=== PATIENT | male | born 1975 | race Two or more races ===

== ENCOUNTER 2022-07-16 18:28 | Emergency (ER) | payer OTHER ==
[~2022-07-16] VITALS: Ht 180.3 cm; Wt 174.6 kg
[2022-07-16 20:30] VITALS: BP 127/66
--- NOTE | 2022-07-16 20:56 | NUR ---
Patient does not wish to proceed with medical care recommended by Dr. Merritt. Patient given information related to possible complications, up to and including , which could occur as a result of leaving the hospital at this time. Patient verbalizes understanding of risks involved due to leaving against medical advice. Patient has signed AMA form.
== END 2022-07-16 21:19 | disposition home or self-care (01) ==
LOC: ER 18:32
DX: R42 Dizziness and giddiness (principal); R06.02 Shortness of breath; R05.9 Cough, unspecified; I10 Essential (primary) hypertension; E11.9 Type 2 diabetes mellitus without complications; Z53.29 Procedure and treatment not carried out because of patient's decision for other reasons

== ENCOUNTER 2022-09-14 16:40 | Emergency (ER) | payer OTHER ==
[~2022-09-14] VITALS: Ht 182.9 cm; Wt 181.4 kg
[2022-09-14 16:58] VITALS: BP 161/105
--- NOTE | 2022-09-14 17:03 | NUR ---
URINE SAMPLE OBTAINED AND PLACED IN DROP OFF BOX
[2022-09-14] MEDS ORDERED: INSULIN REGULAR, HUMAN 100 UNIT/ML 10 ML VIAL ONE (17:29)
[2022-09-14] MEDS ORDERED: IBUPROFEN 600 MG TABLET ONE (17:29)
[2022-09-14] MEDS ORDERED: IBUPROFEN 600 MG TABLET PO ONE (17:30)
[2022-09-14] MEDS ORDERED: INSULIN REGULAR, HUMAN 100 UNIT/ML 10 ML VIAL SQ ONE (17:30)
--- NOTE | 2022-09-14 18:01 | NUR ---
Patient discharged to home in stable condition. Written and verbal after care instructions given. Patient verbalizes understanding of instruction.
== END 2022-09-14 18:02 | disposition home or self-care (01) ==
LOC: ER 16:44
DX: I83.892 Varicose veins of left lower extremity with other complications (principal); I10 Essential (primary) hypertension; E11.9 Type 2 diabetes mellitus without complications; Z88.8 Allergy status to other drugs, medicaments and biological substances
CPT/HCPCS: 99283; 96372; 82962; J1815; A6253

== ENCOUNTER 2023-09-23 21:38 | Inpatient (IN) | payer OTHER ==
[~2023-09-23] VITALS: Ht 195.6 cm; Wt 225.1 kg
[~2023-09-23 21:38] MED LIST: ACET-2605 PO; AMIO100T4 PO; BLOO-1672 MC; BUME2TAB7 PO; CEFT2VIA14 IV; DICL100G26 TP; DOXY100T2 PO; GABA600T12 PO; INSU100V7 SQ; ISOPROPYL ALCOHOL TP; METF-440 PO; METO-358 PO; NALO4SPR NS; RIVA10TA PO
[2023-09-23] MEDS ORDERED: MORPHINE SULFATE INJ 2 MG/ML DISP.SYRIN IV ONE (22:30)
[2023-09-23] MEDS ORDERED: CLINDAMYCIN 600 MG in IV D5W 100 ML IV ONE (22:30)
[2023-09-23] MEDS ORDERED: CLINDAMYCIN 900 MG/6 ML VIAL ONE (23:09)
[2023-09-23 23:12] LABS: BASOPHILS # (AUTO) 0.1 K/uL (0.0-0.2); BASOPHILS % (AUTO) 0.7 % (0.0-2.0); EOSINOPHILS # (AUTO) 0.7 K/uL (0.0-0.7); EOSINOPHILS % (AUTO) 6.2 % (0.0-6.0); HEMATOCRIT 43 % (39-51); HEMOGLOBIN 13.8 g/dL (13.5-17.5); LYMPHOCYTES # (AUTO) 0.3 K/uL (0.8-4.8); LYMPHOCYTES % (AUTO) 2.8 % (20.0-44.0); MEAN CORPUSCULAR HEMOGLOBIN 26 PG (26.0-33.0); MEAN CORPUSCULAR HGB CONC 32 g/dl (31.0-36.0); MEAN CORPUSCULAR VOLUME 81 fL (80-96); MONOCYTES # (AUTO) 0.9 K/uL (0.1-1.30); NEUTROPHILS # (AUTO) 9.8 K/uL (1.8-8.9); NEUTROPHILS % (AUTO) 82.3 % (43.0-81.0); PLATELET COUNT (AUTO) 463 K/uL (150-450); RED BLOOD CELL COUNT(AUTO) 5.32 MIL/uL (4.5-6.0); RED CELL DISTRIBUTION WIDTH 19.6 % (11.5-15.0); WHITE BLOOD COUNT (AUTO) 11.8 K/uL (4.3-11.0)
[2023-09-23 23:25] LABS: INR 1.06 (0.91-1.10); PARTIAL THROMBOPLASTIN TIME 35.6 SEC (24.3-34.3); PROTHROMBIN TIME 11.2 SECS (9.2-11.1)
[2023-09-23 23:36] LABS: CALCIUM, SERUM 9.8 mg/dL (8.5-10.1); POTASSIUM 5.6 mmol/L (3.5-5.1)
[2023-09-23] MEDS ORDERED: ACETAMINOPHEN ES 500 MG TABLET ONE (23:38)
[2023-09-23 23:42] LABS: LACTIC ACID 1.6 mmol/L (0.4-2.0)
[2023-09-23 23:51] LABS: ALBUMIN 2.6 g/dL (3.4-5.0); BILIRUBIN,DIRECT 0.2 mg/dL (0.0-0.2); BILIRUBIN,TOTAL 0.6 mg/dL (0.2-1.0)
[2023-09-24] MEDS ORDERED: ACETAMINOPHEN ES 500 MG TABLET PO ONE
[2023-09-24] MEDS ORDERED: IV NS 0.9% 500 ML BAG IV ONE
[2023-09-24] MEDS ORDERED: ONDANSETRON HCL/PF 4 MG/2 ML VIAL IVP PRN (01:00)
[2023-09-24] MEDS ORDERED: DEXTROSE 50%-WATER 50 ML DISP.SYRIN IV PRN (01:00)
[2023-09-24] MEDS ORDERED: ACETAMINOPHEN 325 MG TABLET PO PRN (01:00)
[2023-09-24] MEDS ORDERED: CEFEPIME 1 GM VIAL ONE (01:54)
[2023-09-24] MEDS ORDERED: CEFEPIME 2 GM in IV D5W 100 ML IV ONE (02:00)
[2023-09-24] MEDS ORDERED: MORPHINE SULFATE INJ 2 MG/ML DISP.SYRIN ONE ×2 (03:01→10:32)
[2023-09-24] MEDS: MORPHINE SULFATE INJ 2 MG/ML DISP.SYRIN IV PRN ×2 (03:17→10:33)
[2023-09-24] MEDS ORDERED: ACETAMINOPHEN 325 MG TABLET ONE (05:50)
[2023-09-24] MEDS ORDERED: Z GUARD REMEDY 4 OZ OINT TP PRN (07:30)
[2023-09-24] MEDS: BLOOD SUGAR DIAGNOSTIC 1 EACH STRIP VI SCH ×4 (07:58→21:32)
[2023-09-24] MEDS: GABAPENTIN 400 MG CAPSULE PO SCH ×3 (09:00→18:00)
[2023-09-24] MEDS ORDERED: LINEZOLID RTU BAG 600 MG in PREMIX 1 EA IV SCH (09:00)
[2023-09-24] MEDS: Z GUARD REMEDY 4 OZ OINT TP SCH (09:00)
[2023-09-24] MEDS: CLOTRIMAZOLE 1% 15 GM TUBE TP SCH ×2 (09:00→17:00)
[2023-09-24] MEDS ORDERED: RIVAROXABAN 10 MG TABLET PO SCH (09:00)
[2023-09-24] MEDS: BUMETANIDE (1 MG) 1 MG TABLET PO SCH (09:30)
[2023-09-24] MEDS: METOPROLOL SUCCINATE 50 MG TAB.SR.24H PO SCH (10:00)
[2023-09-24] MEDS: LINEZOLID 600 MG TABLET PO SCH ×2 (10:00→21:23)
[2023-09-24] MEDS: AMIODARONE HCL 200 MG TABLET PO SCH (10:24)
[2023-09-24] MEDS ORDERED: AMIODARONE HCL 200 MG TABLET ONE (10:24)
[2023-09-24] MEDS: CEFEPIME 2 GM in IV D5W 100 ML IV SCH ×2 (12:28→23:57)
[2023-09-24] MEDS: INSULIN REGULAR, HUMAN 100 UNIT/ML 3 ML VIAL SQ PRN ×2 (13:22→18:24)
[2023-09-24 14:37] LABS: BASOPHILS # (AUTO) 0.1 K/uL (0.0-0.2); BASOPHILS % (AUTO) 1.1 % (0.0-2.0); EOSINOPHILS # (AUTO) 0.1 K/uL (0.0-0.7); EOSINOPHILS % (AUTO) 1.1 % (0.0-6.0); HEMATOCRIT 41 % (39-51); HEMOGLOBIN 13.3 g/dL (13.5-17.5); LYMPHOCYTES # (AUTO) 0.4 K/uL (0.8-4.8); LYMPHOCYTES % (AUTO) 2.9 % (20.0-44.0); MEAN CORPUSCULAR HEMOGLOBIN 26 PG (26.0-33.0); MEAN CORPUSCULAR HGB CONC 32 g/dl (31.0-36.0); MEAN CORPUSCULAR VOLUME 81 fL (80-96); MONOCYTES % (AUTO) 8.3 % (2.0-12.0); NEUTROPHILS # (AUTO) 10.9 K/uL (1.8-8.9); NEUTROPHILS % (AUTO) 86.6 % (43.0-81.0); PLATELET COUNT (AUTO) 466 K/uL (150-450); RED BLOOD CELL COUNT(AUTO) 5.08 MIL/uL (4.5-6.0); RED CELL DISTRIBUTION WIDTH 19.7 % (11.5-15.0); WHITE BLOOD COUNT (AUTO) 12.5 K/uL (4.3-11.0)
[2023-09-24 14:50] LABS: CALCIUM, SERUM 9.2 mg/dL (8.5-10.1); CREATININE 1.5 mg/dL (0.6-1.3); MAGNESIUM 1.9 mg/dL (1.8-2.4); PHOSPHORUS 3.6 mg/dL (2.5-4.9); POTASSIUM 5.5 mmol/L (3.5-5.1)
[2023-09-24] MEDS: RIVAROXABAN 10 MG TABLET PO SCH (18:00)
[2023-09-24] MEDS: *INSULIN REGULAR(HUMULIN R)HUM 100 UNIT/ML VIAL SQ PRN (21:38)
[2023-09-24 23:37] VITALS: BP 135/80; TEMP 98; O2SAT 97
[2023-09-25] VITALS: BP 135/80; TEMP 98; O2SAT 100
[2023-09-25] MEDS: MORPHINE SULFATE INJ 2 MG/ML DISP.SYRIN IV PRN ×4 (01:14→22:59)
[2023-09-25 04:00] VITALS: BP 103/83; TEMP 98.6; O2SAT 99
[2023-09-25 06:20] LABS: BASOPHILS % (AUTO) 0.4 % (0.0-2.0); EOSINOPHILS # (AUTO) 0.3 K/uL (0.0-0.7); EOSINOPHILS % (AUTO) 2.8 % (0.0-6.0); HEMATOCRIT 40 % (39-51); HEMOGLOBIN 12.6 g/dL (13.5-17.5); LYMPHOCYTES # (AUTO) 0.4 K/uL (0.8-4.8); LYMPHOCYTES % (AUTO) 3.6 % (20.0-44.0); MEAN CORPUSCULAR HEMOGLOBIN 26 PG (26.0-33.0); MEAN CORPUSCULAR HGB CONC 32 g/dl (31.0-36.0); MEAN CORPUSCULAR VOLUME 81 fL (80-96); MONOCYTES # (AUTO) 1.1 K/uL (0.1-1.30); MONOCYTES % (AUTO) 9.8 % (2.0-12.0); NEUTROPHILS # (AUTO) 9.7 K/uL (1.8-8.9); NEUTROPHILS % (AUTO) 83.4 % (43.0-81.0); PLATELET COUNT (AUTO) 453 K/uL (150-450); RED BLOOD CELL COUNT(AUTO) 4.88 MIL/uL (4.5-6.0); RED CELL DISTRIBUTION WIDTH 19.6 % (11.5-15.0); WHITE BLOOD COUNT (AUTO) 11.6 K/uL (4.3-11.0)
[2023-09-25 06:47] LABS: CALCIUM, SERUM 9.4 mg/dL (8.5-10.1); CREATININE 1.3 mg/dL (0.6-1.3); PHOSPHORUS 4.1 mg/dL (2.5-4.9); POTASSIUM 5.1 mmol/L (3.5-5.1); TOTAL PROTEIN, SERUM 8.6 g/dL (6.4-8.2)
[2023-09-25] MEDS: BLOOD SUGAR DIAGNOSTIC 1 EACH STRIP VI SCH ×4 (07:30→22:11)
[2023-09-25] MEDS: INSULIN REGULAR, HUMAN 100 UNIT/ML 3 ML VIAL SQ PRN ×4 (07:49→22:53)
[2023-09-25 08:00] VITALS: BP 122/83; TEMP 98.3; O2SAT 96
[2023-09-25] MEDS: BUMETANIDE (1 MG) 1 MG TABLET PO SCH (09:56)
[2023-09-25] MEDS: GABAPENTIN 400 MG CAPSULE PO SCH ×3 (09:56→16:22)
[2023-09-25] MEDS: METOPROLOL SUCCINATE 50 MG TAB.SR.24H PO SCH (09:57)
[2023-09-25] MEDS: AMIODARONE HCL 200 MG TABLET PO SCH (09:57)
[2023-09-25] MEDS: LINEZOLID 600 MG TABLET PO SCH ×2 (10:00→22:50)
[2023-09-25] MEDS: DAKINS HALF STRENGTH (0.25%) 480 ML BOTTLE TOP SCH (10:00)
[2023-09-25] MEDS: CLOTRIMAZOLE 1% 15 GM TUBE TP SCH ×4 (10:01→16:23)
[2023-09-25] MEDS: Z GUARD REMEDY 4 OZ OINT TP SCH (10:01)
[2023-09-25] MEDS: CEFEPIME 2 GM in IV D5W 100 ML IV SCH (11:39)
[2023-09-25 12:00] VITALS: BP 125/95; TEMP 98.6; O2SAT 98
[2023-09-25 16:00] VITALS: BP 137/79; TEMP 98; O2SAT 97
[2023-09-25] MEDS: RIVAROXABAN 10 MG TABLET PO SCH (16:19)
[2023-09-25 20:00] VITALS: BP 118/83; TEMP 98.8; O2SAT 96
[2023-09-25] MEDS: FLUTICASONE PROPIONATE 16 GM BOTTLE NS SCH (22:50)
[2023-09-25] MEDS: INSULIN GLARGINE, 100 UNIT/ML CARTRIDGE SQ SCH (22:52)
[2023-09-26] VITALS: BP 128/85; TEMP 98.4; O2SAT 95
[2023-09-26] MEDS: CEFEPIME 2 GM in IV D5W 100 ML IV SCH ×3 (00:10→23:51)
[2023-09-26 04:00] VITALS: BP 122/84; TEMP 98.2; O2SAT 96
[2023-09-26 06:07] LABS: PTH, INTACT 20 pg/mL (15-65)
[2023-09-26 08:00] VITALS: BP 123/81; TEMP 98.2; O2SAT 96
[2023-09-26] MEDS: BLOOD SUGAR DIAGNOSTIC 1 EACH STRIP VI SCH ×4 (08:07→21:37)
[2023-09-26] MEDS: INSULIN REGULAR, HUMAN 100 UNIT/ML 3 ML VIAL SQ PRN ×3 (08:09→17:20)
[2023-09-26] MEDS: FLUTICASONE PROPIONATE 16 GM BOTTLE NS SCH ×2 (08:47→16:43)
[2023-09-26] MEDS: CLOTRIMAZOLE 1% 15 GM TUBE TP SCH ×4 (08:47→16:47)
[2023-09-26] MEDS: GABAPENTIN 400 MG CAPSULE PO SCH ×3 (08:48→16:43)
[2023-09-26] MEDS: AMIODARONE HCL 200 MG TABLET PO SCH (08:48)
[2023-09-26] MEDS: BUMETANIDE (1 MG) 1 MG TABLET PO SCH (08:48)
[2023-09-26] MEDS: Z GUARD REMEDY 4 OZ OINT TP SCH (08:49)
[2023-09-26] MEDS: DAKINS HALF STRENGTH (0.25%) 480 ML BOTTLE TOP SCH (08:49)
[2023-09-26] MEDS: METOPROLOL SUCCINATE 50 MG TAB.SR.24H PO SCH (08:49)
[2023-09-26] MEDS: LINEZOLID 600 MG TABLET PO SCH ×2 (08:49→21:13)
[2023-09-26 10:08] LABS: *SPE A/G RATIO 0.4 (0.7-1.7); *SPE ALBUMIN 2.3 g/dL (2.9-4.4); *SPE ALPHA-1-GLOBULIN 0.5 g/dL (0.0-0.4); *SPE ALPHA-2-GLOBULIN 1.1 g/dL (0.4-1.0); *SPE BETA GLOBULIN 1.2 g/dL (0.7-1.3); *SPE GLOBULIN, TOTAL 5.3 g/dL (2.2-3.9); *SPE M-SPIKE Not Observed g/dL (Not Observed); *SPE PROTEIN TOTAL 7.6 g/dL (6.0-8.5); *SPEGAMMA GLOBULIN 2.4 g/dL (0.4-1.8)
[2023-09-26 11:23] LABS: CALCIUM, SERUM 9.1 mg/dL (8.5-10.1); CREATININE 1.4 mg/dL (0.6-1.3); POTASSIUM 4.1 mmol/L (3.5-5.1)
[2023-09-26 12:00] VITALS: BP 101/62; TEMP 98; O2SAT 96
[2023-09-26] MEDS ORDERED: CEPH500C2 PO (12:13)
[2023-09-26] MEDS ORDERED: ACID1TAB4 PO (12:14)
[2023-09-26 16:00] VITALS: BP 111/62; TEMP 98; O2SAT 96
[2023-09-26] MEDS: RIVAROXABAN 10 MG TABLET PO SCH (16:47)
[2023-09-26 20:00] VITALS: BP 107/86; TEMP 98.5; O2SAT 97
[2023-09-26] MEDS: INSULIN GLARGINE, 100 UNIT/ML CARTRIDGE SQ SCH (21:39)
[2023-09-26] MEDS: *INSULIN REGULAR(HUMULIN R)HUM 100 UNIT/ML VIAL SQ PRN (21:41)
[2023-09-27] VITALS: BP 112/79; TEMP 98.3; O2SAT 95
[2023-09-27 04:00] VITALS: BP 142/75; TEMP 98.7; O2SAT 96
[2023-09-27 08:00] VITALS: BP 135/70; TEMP 98.7; O2SAT 95
[2023-09-27] MEDS: CLOTRIMAZOLE 1% 15 GM TUBE TP SCH ×4 (08:31→17:19)
[2023-09-27] MEDS: BLOOD SUGAR DIAGNOSTIC 1 EACH STRIP VI SCH ×4 (08:31→22:00)
[2023-09-27] MEDS: LINEZOLID 600 MG TABLET PO SCH ×2 (08:32→21:25)
[2023-09-27] MEDS: INSULIN REGULAR, HUMAN 100 UNIT/ML 3 ML VIAL SQ PRN ×3 (08:32→17:17)
[2023-09-27] MEDS: GABAPENTIN 400 MG CAPSULE PO SCH ×3 (08:33→17:16)
[2023-09-27] MEDS: AMIODARONE HCL 200 MG TABLET PO SCH (08:33)
[2023-09-27] MEDS: METOPROLOL SUCCINATE 50 MG TAB.SR.24H PO SCH (08:33)
[2023-09-27] MEDS: BUMETANIDE (1 MG) 1 MG TABLET PO SCH (08:34)
[2023-09-27] MEDS: DAKINS HALF STRENGTH (0.25%) 480 ML BOTTLE TOP SCH (08:35)
[2023-09-27] MEDS: FLUTICASONE PROPIONATE 16 GM BOTTLE NS SCH ×2 (08:35→17:19)
[2023-09-27] MEDS: Z GUARD REMEDY 4 OZ OINT TP SCH (08:36)
[2023-09-27 12:00] VITALS: BP 131/82; TEMP 98.5; O2SAT 96
[2023-09-27] MEDS ORDERED: MAG HYDROX/AL HYDROX/SIMETH 30 ML UDC PO PRN (12:00)
[2023-09-27] MEDS: CEFEPIME 2 GM in IV D5W 100 ML IV SCH ×3 (12:00)
[2023-09-27] MEDS: CEPHALEXIN MONOHYDRATE 500 MG CAPSULE PO SCH ×2 (15:04→21:26)
[2023-09-27 15:47] LABS: CALCIUM, SERUM 8.9 mg/dL (8.5-10.1); CREATININE 1.1 mg/dL (0.6-1.3); POTASSIUM 3.7 mmol/L (3.5-5.1)
[2023-09-27 16:00] VITALS: BP 128/89; TEMP 98.1; O2SAT 99
[2023-09-27] MEDS: RIVAROXABAN 10 MG TABLET PO SCH (17:16)
[2023-09-27 20:00] VITALS: BP 116/69; TEMP 98.6; O2SAT 99
[2023-09-28] VITALS: BP 116/69; TEMP 98.6; O2SAT 99
[2023-09-28] MEDS: *INSULIN REGULAR(HUMULIN R)HUM 100 UNIT/ML VIAL SQ PRN (00:06)
[2023-09-28] MEDS: INSULIN GLARGINE, 100 UNIT/ML CARTRIDGE SQ SCH (00:07)
[2023-09-28] MEDS: CEPHALEXIN MONOHYDRATE 500 MG CAPSULE PO SCH ×2 (02:41→09:07)
[2023-09-28 04:00] VITALS: BP 146/96; TEMP 98; O2SAT 96
[2023-09-28] MEDS: BLOOD SUGAR DIAGNOSTIC 1 EACH STRIP VI SCH ×2 (07:30→11:23)
[2023-09-28 08:00] VITALS: BP 137/91; TEMP 98; O2SAT 97
[2023-09-28] MEDS: CLOTRIMAZOLE 1% 15 GM TUBE TP SCH ×2 (09:01→09:02)
[2023-09-28] MEDS: DAKINS HALF STRENGTH (0.25%) 480 ML BOTTLE TOP SCH (09:01)
[2023-09-28] MEDS: Z GUARD REMEDY 4 OZ OINT TP SCH (09:02)
[2023-09-28] MEDS: AMIODARONE HCL 200 MG TABLET PO SCH (09:06)
[2023-09-28] MEDS: METOPROLOL SUCCINATE 50 MG TAB.SR.24H PO SCH (09:06)
[2023-09-28] MEDS: BUMETANIDE (1 MG) 1 MG TABLET PO SCH (09:07)
[2023-09-28] MEDS: FLUTICASONE PROPIONATE 16 GM BOTTLE NS SCH (09:07)
[2023-09-28] MEDS: GABAPENTIN 400 MG CAPSULE PO SCH ×2 (09:07→12:07)
[2023-09-28] MEDS: INSULIN REGULAR, HUMAN 100 UNIT/ML 3 ML VIAL SQ PRN ×2 (09:08→11:25)
[2023-09-28] MEDS: LINEZOLID 600 MG TABLET PO SCH (09:20)
[2023-09-28 12:00] VITALS: BP 117/77; TEMP 97.3; O2SAT 94
== END 2023-09-28 14:22 | disposition home health service (06) | DRG 383 ==
LOC: ER 21:40 → TRANSITION 09-24 01:18 → TELE1 09-24 19:18
PROVIDERS: ADMIT Nurse Practitioner Acute Care; ATTEND Nurse Practitioner Acute Care
DX: L03.115 Cellulitis of right lower limb (principal); N17.0 Acute kidney failure with tubular necrosis; D68.59 Other primary thrombophilia; I48.20 Chronic atrial fibrillation, unspecified; E87.1 Hypo-osmolality and hyponatremia; L97.419 Non-pressure chronic ulcer of right heel and midfoot with unspecified severity; E86.0 Dehydration; E86.1 Hypovolemia; E11.51 Type 2 diabetes mellitus with diabetic peripheral angiopathy without gangrene; I50.9 Heart failure, unspecified; I11.0 Hypertensive heart disease with heart failure; L03.116 Cellulitis of left lower limb; E11.65 Type 2 diabetes mellitus with hyperglycemia; Z79.01 Long term (current) use of anticoagulants; E11.621 Type 2 diabetes mellitus with foot ulcer; Z88.1 Allergy status to other antibiotic agents; Z88.8 Allergy status to other drugs, medicaments and biological substances; Z79.4 Long term (current) use of insulin; Z79.84 Long term (current) use of oral hypoglycemic drugs; Z79.899 Other long term (current) drug therapy; E87.5 Hyperkalemia; E66.01 Morbid (severe) obesity due to excess calories; Z68.43 Body mass index [BMI] 50.0-59.9, adult; Z74.09 Other reduced mobility; I87.8 Other specified disorders of veins; I89.0 Lymphedema, not elsewhere classified; D64.9 Anemia, unspecified; L30.4 Erythema intertrigo; E88.9 Metabolic disorder, unspecified; Z86.19 Personal history of other infectious and parasitic diseases
CPT/HCPCS: 36415; 71045-TC; 73630-TC; 76770-TC; 80048-TC; 80053-TC; 80076-TC; 82550-TC; 82962-TC; 83605-TC; 83735-TC; 83880; 83970; 84100-TC; 84155; 84165; 85025-TC; 85730-TC; 87040-TC; A4216; A4223; A6403; G0378; J0692; J1815; J2020; J2270; J2405; J3490; J7040; J7060

== ENCOUNTER 2023-11-12 16:53 | Inpatient (IN) | payer OTHER ==
[~2023-11-12] VITALS: Ht 195.6 cm; Wt 216.8 kg
[~2023-11-12 16:53] MED LIST changes: +ACID1TAB4 PO; -CEFT2VIA14 IV; +CEPH500C2 PO; -DOXY100T2 PO; -METF-440 PO
[2023-11-12 17:56] LABS: BASOPHILS # (AUTO) 0.1 K/uL (0.0-0.2); BASOPHILS % (AUTO) 0.6 % (0.0-2.0); EOSINOPHILS # (AUTO) 0.2 K/uL (0.0-0.7); EOSINOPHILS % (AUTO) 2.2 % (0.0-6.0); HEMATOCRIT 40 % (39-51); HEMOGLOBIN 12.7 g/dL (13.5-17.5); LYMPHOCYTES # (AUTO) 0.4 K/uL (0.8-4.8); LYMPHOCYTES % (AUTO) 5.3 % (20.0-44.0); MEAN CORPUSCULAR HEMOGLOBIN 28 PG (26.0-33.0); MEAN CORPUSCULAR HGB CONC 32 g/dl (31.0-36.0); MEAN CORPUSCULAR VOLUME 87 fL (80-96); MONOCYTES # (AUTO) 0.8 K/uL (0.1-1.30); MONOCYTES % (AUTO) 10.3 % (2.0-12.0); NEUTROPHILS # (AUTO) 6.6 K/uL (1.8-8.9); NEUTROPHILS % (AUTO) 81.6 % (43.0-81.0); PLATELET COUNT (AUTO) 374 K/uL (150-450); RED BLOOD CELL COUNT(AUTO) 4.54 MIL/uL (4.5-6.0); RED CELL DISTRIBUTION WIDTH 18.5 % (11.5-15.0)
[2023-11-12 18:23] LABS: CALCIUM, SERUM 8.9 mg/dL (8.5-10.1); CARBON DIOXIDE 28 mmol/L (21-32); CHLORIDE 104 mmol/L (98-107); CREATININE 1.3 mg/dL (0.6-1.3); GLUCOSE 137 mg/dL (74-106); POTASSIUM 3.2 mmol/L (3.5-5.1); SODIUM SERUM 140 mmol/L (136-145); UREA NITROGEN, BLOOD 11 mg/dL (7-18)
[2023-11-12 18:30] LABS: LACTIC ACID 1.7 mmol/L (0.4-2.0)
[2023-11-12 18:33] LABS: ALANINE AMINOTRANSFERASE 10 U/L (12-78); ALBUMIN 2.7 g/dL (3.4-5.0); ALKALINE PHOSPHATASE 166 U/L (46-116); ASPARTATE AMINOTRANSFERASE 9 U/L (15-37); BILIRUBIN,DIRECT 0.5 mg/dL (0.0-0.2); BILIRUBIN,TOTAL 2.2 mg/dL (0.2-1.0); NT-PRO BNP 4012 pg/mL (0-125)
[2023-11-12] MEDS ORDERED: hydrALAZINE HCL IV 20 MG VIAL IV PRN (19:00)
[2023-11-12] MEDS ORDERED: DEXTROSE 50%-WATER 50 ML DISP.SYRIN IV PRN (19:00)
[2023-11-12] MEDS ORDERED: ALBUTEROL FS 2.5 MG/0.5 ML VIAL.NEB NEB PRN (19:00)
[2023-11-12] MEDS ORDERED: ONDANSETRON HCL/PF 4 MG/2 ML VIAL IVP PRN (19:00)
[2023-11-12] MEDS ORDERED: ALBUTEROL FS 2.5 MG/0.5 ML VIAL.NEB ONE (19:05)
[2023-11-12] MEDS: IPRATROPIUM NEB FS 0.5 MG/2.5 ML AMPUL.NEB NEB SCH (19:05)
[2023-11-12] MEDS: ALBUTEROL FS 2.5 MG/0.5 ML VIAL.NEB NEB SCH (19:05)
[2023-11-12] MEDS ORDERED: IPRATROPIUM NEB FS 0.5 MG/2.5 ML AMPUL.NEB ONE (19:05)
[2023-11-12] MEDS ORDERED: BUMETANIDE INJ 0.25 MG/ML VIAL ONE ×2 (19:16→19:18)
[2023-11-12] MEDS: BUMETANIDE INJ 0.25 MG/ML VIAL IV SCH (19:26)
[2023-11-12] MEDS ORDERED: AMIODARONE 450 MG in IV D5W 250 ML IV ONE (20:00)
[2023-11-12] MEDS ORDERED: AMIODARONE 150 MG in IV D5W 100 ML IV ONE (20:00)
[2023-11-12] MEDS: AMIODARONE 450 MG in IV D5W 241 ML IV PRN (21:41)
[2023-11-12] MEDS ORDERED: AZITHROMYCIN 500 MG in IV D5W 250 ML IV ONE (22:00)
[2023-11-12] MEDS: BLOOD SUGAR DIAGNOSTIC 1 EACH STRIP VI SCH (22:00)
[2023-11-12] MEDS ORDERED: CEFTRIAXONE 1 G in IV D5W 50 ML IV ONE (22:00)
[2023-11-12] MEDS ORDERED: MORPHINE SULFATE INJ 2 MG/ML DISP.SYRIN ONE (22:13)
[2023-11-12] MEDS: MORPHINE SULFATE INJ 2 MG/ML DISP.SYRIN IV PRN (22:29)
[2023-11-12] MEDS ORDERED: CEFTRIAXONE 1GM BAG (ER ONLY) 50 ML IV ONE (23:30)
[2023-11-12] MEDS ORDERED: AZITHROMYCIN 500 MG VIAL ONE (23:30)
[2023-11-13] VITALS (11 sets, daily range): BP systolic 120–147; BP diastolic 68–105; TEMP 98.1–98.2; O2SAT 94–100
[2023-11-13] MEDS ORDERED: ACETAMINOPHEN 325 MG TABLET ONE (00:08)
[2023-11-13] MEDS: ACETAMINOPHEN 325 MG TABLET PO PRN ×2 (00:51→16:15)
[2023-11-13] MEDS ORDERED: IPRATROPIUM NEB FS 0.5 MG/2.5 ML AMPUL.NEB ONE ×2 (01:31→07:47)
[2023-11-13] MEDS ORDERED: ALBUTEROL FS 2.5 MG/3 ML VIAL.NEB ONE (01:31)
[2023-11-13] MEDS: IPRATROPIUM NEB FS 0.5 MG/2.5 ML AMPUL.NEB NEB SCH ×4 (01:32→19:37)
[2023-11-13] MEDS: ALBUTEROL FS 2.5 MG/0.5 ML VIAL.NEB NEB SCH ×2 (01:32→07:45)
[2023-11-13] MEDS ORDERED: ALBUTEROL FS 2.5 MG/0.5 ML VIAL.NEB ONE ×2 (01:33→07:46)
[2023-11-13] MEDS: AMIODARONE 450 MG in IV D5W 241 ML IV PRN (03:41)
[2023-11-13] MEDS ORDERED: MORPHINE SULFATE INJ 2 MG/ML DISP.SYRIN ONE ×2 (03:50→09:21)
[2023-11-13] MEDS: MORPHINE SULFATE INJ 2 MG/ML DISP.SYRIN IV PRN ×3 (04:00→12:12)
[2023-11-13 05:53] LABS: ABG BASE EXCESS -0.8 mmol/L; ABG OXYGEN SATURATION 93.7 % (92.0-98.5); ABG PCO2 41.3 mmHg (35.0-45.0); ABG PH 7.385 (7.350-7.450); ABG PO2 74.3 mmHg (75.0-100.0); ABG TOTAL HEMOGLOBIN 13.8 G/dL (13.5-18.0); COHb 0.8 % (0.5-1.5); MetHb 0.3 % (0.0-1.5); O2Hb 92.7 % (94.0-97.0); SITE, ABG Right Radial; VENT MODE, BG Nasal cannula
[2023-11-13 05:56] LABS: EOSINOPHILS # (AUTO) 0.2 K/uL (0.0-0.7); EOSINOPHILS % (AUTO) 2.1 % (0.0-6.0); HEMATOCRIT 39 % (39-51); HEMOGLOBIN 12.2 g/dL (13.5-17.5); LYMPHOCYTES # (AUTO) 0.3 K/uL (0.8-4.8); LYMPHOCYTES % (AUTO) 4.1 % (20.0-44.0); MEAN CORPUSCULAR HEMOGLOBIN 27 PG (26.0-33.0); MEAN CORPUSCULAR HGB CONC 31 g/dl (31.0-36.0); MEAN CORPUSCULAR VOLUME 88 fL (80-96); MONOCYTES # (AUTO) 0.5 K/uL (0.1-1.30); MONOCYTES % (AUTO) 6.3 % (2.0-12.0); NEUTROPHILS # (AUTO) 7.5 K/uL (1.8-8.9); NEUTROPHILS % (AUTO) 87.5 % (43.0-81.0); PLATELET COUNT (AUTO) 342 K/uL (150-450); RED BLOOD CELL COUNT(AUTO) 4.45 MIL/uL (4.5-6.0); RED CELL DISTRIBUTION WIDTH 18.9 % (11.5-15.0); WHITE BLOOD COUNT (AUTO) 8.5 K/uL (4.3-11.0)
[2023-11-13 06:10] LABS: ALANINE AMINOTRANSFERASE < 6 U/L (12-78); ALBUMIN 2.7 g/dL (3.4-5.0); ALKALINE PHOSPHATASE 168 U/L (46-116); ASPARTATE AMINOTRANSFERASE 6 U/L (15-37); BILIRUBIN,TOTAL 2.1 mg/dL (0.2-1.0); CALCIUM, SERUM 8.9 mg/dL (8.5-10.1); CARBON DIOXIDE 27 mmol/L (21-32); CHLORIDE 102 mmol/L (98-107); GLUCOSE 211 mg/dL (74-106); MAGNESIUM 1.7 mg/dL (1.8-2.4); PHOSPHORUS 3.9 mg/dL (2.5-4.9); POTASSIUM 3.4 mmol/L (3.5-5.1); SODIUM SERUM 137 mmol/L (136-145); UREA NITROGEN, BLOOD 11 mg/dL (7-18)
[2023-11-13] MEDS ORDERED: AMIODARONE HCL 200 MG TABLET PO SCH (09:00)
[2023-11-13] MEDS: BLOOD SUGAR DIAGNOSTIC 1 EACH STRIP VI SCH ×4 (09:00→21:43)
[2023-11-13] MEDS ORDERED: INSULIN REGULAR, HUMAN 100 UNIT/ML 10 ML VIAL ONE (09:03)
[2023-11-13] MEDS: INSULIN REGULAR, HUMAN 100 UNIT/ML 3 ML VIAL SQ PRN (09:05)
[2023-11-13] MEDS ORDERED: BUMETANIDE INJ 0.25 MG/ML VIAL ONE ×2 (09:11→09:16)
[2023-11-13] MEDS: RIVAROXABAN 10 MG TABLET PO SCH (09:17)
[2023-11-13] MEDS: BUMETANIDE INJ 0.25 MG/ML VIAL IV SCH (09:17)
[2023-11-13] MEDS ORDERED: Z GUARD REMEDY 4 OZ OINT TP PRN (09:30)
[2023-11-13] MEDS ORDERED: POTASSIUM CHLORIDE 20 MEQ POWDER PACKET PO ONE (11:00)
[2023-11-13] MEDS ORDERED: MAGNESIUM OXIDE 400 MG TABLET PO ONE (12:00)
[2023-11-13] MEDS ORDERED: Magnesium 1GM/D5W 100ML PREMIX 100 ML IV SCH (12:00)
[2023-11-13] MEDS: Z GUARD REMEDY 4 OZ OINT TP SCH (12:06)
[2023-11-13] MEDS: *INSULIN REGULAR(HUMULIN R)HUM 100 UNIT/ML VIAL SQ PRN ×3 (12:21→21:42)
[2023-11-13] MEDS: POTASSIUM CHLORIDE 20 MEQ TAB.PRT.SR PO SCH ×3 (12:22→14:38)
[2023-11-13] MEDS: FUROSEMIDE 100 MG/10 ML VIAL IV SCH ×4 (12:22→20:19)
[2023-11-13] MEDS: ALBUTEROL HALF STRENGTH 1.25 MG/3 ML VIAL.NEB NEB SCH ×2 (13:04→19:37)
[2023-11-13] MEDS ORDERED: CLINDAMYCIN IV RTU IN D5W 900 MG/50 ML PIGGYBACK IV SCH (13:30)
[2023-11-13] MEDS: CLINDAMYCIN 900 MG in IV D5W 50 ML IV SCH ×2 (14:38→21:06)
[2023-11-13] MEDS ORDERED: CLINDAMYCIN PHOSPHATE IV 600 MG/4 ML VIAL IV SCH (17:00)
[2023-11-13] MEDS: FLUTICASONE PROPIONATE 16 GM BOTTLE NS SCH (18:58)
[2023-11-13] MEDS: GUAIFENESIN LA 600 MG TABLET.SA PO SCH (20:19)
[2023-11-14] VITALS (10 sets, daily range): BP systolic 118–150; BP diastolic 72–109; TEMP 97.7–98.7; O2SAT 92–99
[2023-11-14] MEDS: ALBUTEROL HALF STRENGTH 1.25 MG/3 ML VIAL.NEB NEB SCH ×4 (01:30→19:29)
[2023-11-14] MEDS: IPRATROPIUM NEB FS 0.5 MG/2.5 ML AMPUL.NEB NEB SCH ×4 (01:30→19:29)
[2023-11-14] MEDS: CLINDAMYCIN 900 MG in IV D5W 50 ML IV SCH ×3 (04:28→21:36)
[2023-11-14] MEDS: BLOOD SUGAR DIAGNOSTIC 1 EACH STRIP VI SCH ×4 (08:01→21:41)
[2023-11-14] MEDS: GUAIFENESIN LA 600 MG TABLET.SA PO SCH ×2 (08:12→21:36)
[2023-11-14] MEDS: FUROSEMIDE 100 MG/10 ML VIAL IV SCH ×3 (08:12→15:38)
[2023-11-14] MEDS: DAKINS HALF STRENGTH (0.25%) 480 ML BOTTLE TOP SCH (08:13)
[2023-11-14] MEDS: Z GUARD REMEDY 4 OZ OINT TP SCH (08:14)
[2023-11-14] MEDS: RIVAROXABAN 10 MG TABLET PO SCH (08:18)
[2023-11-14] MEDS: FLUTICASONE PROPIONATE 16 GM BOTTLE NS SCH (08:20)
[2023-11-14] MEDS: INSULIN REGULAR, HUMAN 100 UNIT/ML 3 ML VIAL SQ PRN ×3 (08:23→17:50)
[2023-11-14 08:46] LABS: BASOPHILS # (AUTO) 0.1 K/uL (0.0-0.2); BASOPHILS % (AUTO) 0.7 % (0.0-2.0); EOSINOPHILS # (AUTO) 0.2 K/uL (0.0-0.7); EOSINOPHILS % (AUTO) 1.8 % (0.0-6.0); HEMATOCRIT 42 % (39-51); HEMOGLOBIN 13.4 g/dL (13.5-17.5); LYMPHOCYTES # (AUTO) 0.3 K/uL (0.8-4.8); LYMPHOCYTES % (AUTO) 3.3 % (20.0-44.0); MEAN CORPUSCULAR HEMOGLOBIN 28 PG (26.0-33.0); MEAN CORPUSCULAR HGB CONC 32 g/dl (31.0-36.0); MEAN CORPUSCULAR VOLUME 87 fL (80-96); MONOCYTES # (AUTO) 0.9 K/uL (0.1-1.30); MONOCYTES % (AUTO) 9.9 % (2.0-12.0); NEUTROPHILS % (AUTO) 84.3 % (43.0-81.0); PLATELET COUNT (AUTO) 331 K/uL (150-450); RED BLOOD CELL COUNT(AUTO) 4.87 MIL/uL (4.5-6.0); RED CELL DISTRIBUTION WIDTH 18.9 % (11.5-15.0); WHITE BLOOD COUNT (AUTO) 9.5 K/uL (4.3-11.0)
[2023-11-14 09:03] LABS: ALBUMIN 2.7 g/dL (3.4-5.0); BILIRUBIN,TOTAL 2.3 mg/dL (0.2-1.0); CALCIUM, SERUM 8.9 mg/dL (8.5-10.1); MAGNESIUM 1.7 mg/dL (1.8-2.4); POTASSIUM 3.5 mmol/L (3.5-5.1); TOTAL PROTEIN, SERUM 8.4 g/dL (6.4-8.2)
[2023-11-14] MEDS: MORPHINE SULFATE INJ 2 MG/ML DISP.SYRIN IV PRN ×2 (10:25→21:48)
[2023-11-14] MEDS: ACETAMINOPHEN 325 MG TABLET PO PRN (12:55)
[2023-11-14] MEDS: *INSULIN REGULAR(HUMULIN R)HUM 100 UNIT/ML VIAL SQ PRN (21:52)
[2023-11-15] VITALS (10 sets, daily range): BP systolic 113–147; BP diastolic 81–94; TEMP 97.6–98.4; O2SAT 92–100
[2023-11-15] MEDS: AMIODARONE HCL 200 MG TABLET PO SCH ×4 (00:39→16:18)
[2023-11-15] MEDS: ALBUTEROL HALF STRENGTH 1.25 MG/3 ML VIAL.NEB NEB SCH ×4 (01:28→20:09)
[2023-11-15] MEDS: IPRATROPIUM NEB FS 0.5 MG/2.5 ML AMPUL.NEB NEB SCH ×4 (01:28→20:09)
[2023-11-15] MEDS: CLINDAMYCIN 900 MG in IV D5W 50 ML IV SCH ×3 (04:30→21:15)
[2023-11-15 06:20] LABS: BASOPHILS # (AUTO) 0.1 K/uL (0.0-0.2); BASOPHILS % (AUTO) 0.9 % (0.0-2.0); EOSINOPHILS # (AUTO) 0.4 K/uL (0.0-0.7); EOSINOPHILS % (AUTO) 4.8 % (0.0-6.0); HEMATOCRIT 43 % (39-51); HEMOGLOBIN 13.5 g/dL (13.5-17.5); LYMPHOCYTES # (AUTO) 0.4 K/uL (0.8-4.8); LYMPHOCYTES % (AUTO) 5.8 % (20.0-44.0); MEAN CORPUSCULAR HEMOGLOBIN 28 PG (26.0-33.0); MEAN CORPUSCULAR HGB CONC 32 g/dl (31.0-36.0); MEAN CORPUSCULAR VOLUME 88 fL (80-96); MONOCYTES # (AUTO) 1.1 K/uL (0.1-1.30); MONOCYTES % (AUTO) 14.7 % (2.0-12.0); NEUTROPHILS # (AUTO) 5.7 K/uL (1.8-8.9); NEUTROPHILS % (AUTO) 73.8 % (43.0-81.0); PLATELET COUNT (AUTO) 325 K/uL (150-450); RED BLOOD CELL COUNT(AUTO) 4.88 MIL/uL (4.5-6.0); RED CELL DISTRIBUTION WIDTH 19.1 % (11.5-15.0); WHITE BLOOD COUNT (AUTO) 7.7 K/uL (4.3-11.0)
[2023-11-15 08:43] LABS: ALBUMIN 2.4 g/dL (3.4-5.0); BILIRUBIN,TOTAL 2.1 mg/dL (0.2-1.0); CALCIUM, SERUM 8.7 mg/dL (8.5-10.1); MAGNESIUM 1.8 mg/dL (1.8-2.4); PHOSPHORUS 4.2 mg/dL (2.5-4.9); POTASSIUM 3.3 mmol/L (3.5-5.1); TOTAL PROTEIN, SERUM 8.1 g/dL (6.4-8.2)
[2023-11-15] MEDS: GUAIFENESIN LA 600 MG TABLET.SA PO SCH ×2 (08:44→21:08)
[2023-11-15] MEDS: FLUTICASONE PROPIONATE 16 GM BOTTLE NS SCH (08:44)
[2023-11-15] MEDS: RIVAROXABAN 10 MG TABLET PO SCH (08:46)
[2023-11-15] MEDS: DAKINS HALF STRENGTH (0.25%) 480 ML BOTTLE TOP SCH (08:56)
[2023-11-15] MEDS: INSULIN REGULAR, HUMAN 100 UNIT/ML 3 ML VIAL SQ PRN ×3 (09:00→17:02)
[2023-11-15] MEDS: BLOOD SUGAR DIAGNOSTIC 1 EACH STRIP VI SCH ×4 (09:02→21:30)
[2023-11-15] MEDS: Z GUARD REMEDY 4 OZ OINT TP SCH (09:23)
[2023-11-15] MEDS: POTASSIUM CHLORIDE 20 MEQ TAB.PRT.SR PO SCH ×5 (10:29→15:07)
[2023-11-15] MEDS: FUROSEMIDE 100 MG/10 ML VIAL IV SCH ×3 (10:29→17:24)
[2023-11-15] MEDS: MORPHINE SULFATE INJ 2 MG/ML DISP.SYRIN IV PRN (21:11)
[2023-11-15] MEDS: *INSULIN REGULAR(HUMULIN R)HUM 100 UNIT/ML VIAL SQ PRN (21:28)
[2023-11-16] VITALS (14 sets, daily range): BP systolic 113–135; BP diastolic 64–104; TEMP 97.8–98.8; O2SAT 92–100
[2023-11-16] MEDS: ALBUTEROL HALF STRENGTH 1.25 MG/3 ML VIAL.NEB NEB SCH ×4 (01:25→20:17)
[2023-11-16] MEDS: IPRATROPIUM NEB FS 0.5 MG/2.5 ML AMPUL.NEB NEB SCH ×4 (01:25→20:17)
[2023-11-16] MEDS: CLINDAMYCIN 900 MG in IV D5W 50 ML IV SCH ×3 (04:42→21:21)
[2023-11-16] MEDS: MORPHINE SULFATE INJ 2 MG/ML DISP.SYRIN IV PRN ×2 (06:19→17:39)
[2023-11-16] MEDS: BLOOD SUGAR DIAGNOSTIC 1 EACH STRIP VI SCH ×4 (07:30→21:22)
[2023-11-16 07:46] LABS: BASOPHILS % (AUTO) 0.8 % (0.0-2.0); EOSINOPHILS # (AUTO) 0.3 K/uL (0.0-0.7); EOSINOPHILS % (AUTO) 5.8 % (0.0-6.0); HEMATOCRIT 40 % (39-51); HEMOGLOBIN 12.7 g/dL (13.5-17.5); LYMPHOCYTES # (AUTO) 0.4 K/uL (0.8-4.8); LYMPHOCYTES % (AUTO) 7.1 % (20.0-44.0); MEAN CORPUSCULAR HEMOGLOBIN 28 PG (26.0-33.0); MEAN CORPUSCULAR HGB CONC 32 g/dl (31.0-36.0); MEAN CORPUSCULAR VOLUME 87 fL (80-96); MONOCYTES # (AUTO) 0.8 K/uL (0.1-1.30); MONOCYTES % (AUTO) 13.6 % (2.0-12.0); NEUTROPHILS # (AUTO) 4.4 K/uL (1.8-8.9); NEUTROPHILS % (AUTO) 72.7 % (43.0-81.0); PLATELET COUNT (AUTO) 318 K/uL (150-450); RED BLOOD CELL COUNT(AUTO) 4.63 MIL/uL (4.5-6.0); RED CELL DISTRIBUTION WIDTH 18.3 % (11.5-15.0)
[2023-11-16 08:23] LABS: ALANINE AMINOTRANSFERASE < 6 U/L (12-78); ALBUMIN 2.6 g/dL (3.4-5.0); ALKALINE PHOSPHATASE 135 U/L (46-116); ASPARTATE AMINOTRANSFERASE 10 U/L (15-37); BILIRUBIN,TOTAL 1.5 mg/dL (0.2-1.0); CALCIUM, SERUM 8.7 mg/dL (8.5-10.1); CARBON DIOXIDE 31 mmol/L (21-32); CHLORIDE 97 mmol/L (98-107); CREATININE 0.9 mg/dL (0.6-1.3); GLUCOSE 159 mg/dL (74-106); MAGNESIUM 1.8 mg/dL (1.8-2.4); PHOSPHORUS 4.1 mg/dL (2.5-4.9); POTASSIUM 3.5 mmol/L (3.5-5.1); SODIUM SERUM 134 mmol/L (136-145); TOTAL PROTEIN, SERUM 7.9 g/dL (6.4-8.2); UREA NITROGEN, BLOOD 11 mg/dL (7-18)
[2023-11-16] MEDS: INSULIN REGULAR, HUMAN 100 UNIT/ML 3 ML VIAL SQ PRN ×2 (08:55→17:34)
[2023-11-16] MEDS: GUAIFENESIN LA 600 MG TABLET.SA PO SCH ×2 (08:59→21:21)
[2023-11-16] MEDS: AMIODARONE HCL 200 MG TABLET PO SCH (09:00)
[2023-11-16] MEDS: RIVAROXABAN 10 MG TABLET PO SCH (09:04)
[2023-11-16] MEDS: FLUTICASONE PROPIONATE 16 GM BOTTLE NS SCH (09:30)
[2023-11-16] MEDS: Z GUARD REMEDY 4 OZ OINT TP SCH (09:31)
[2023-11-16] MEDS: DAKINS HALF STRENGTH (0.25%) 480 ML BOTTLE TOP SCH (09:31)
[2023-11-16] MEDS: METOPROLOL TARTRATE 50 MG TABLET PO SCH ×3 (12:29→23:48)
[2023-11-16] MEDS: *INSULIN REGULAR(HUMULIN R)HUM 100 UNIT/ML VIAL SQ PRN (23:33)
[2023-11-17] VITALS (12 sets, daily range): BP systolic 113–155; BP diastolic 72–110; TEMP 97.7–98.6; O2SAT 90–99
[2023-11-17] MEDS: IPRATROPIUM NEB FS 0.5 MG/2.5 ML AMPUL.NEB NEB SCH ×4 (01:30→20:05)
[2023-11-17] MEDS: ALBUTEROL HALF STRENGTH 1.25 MG/3 ML VIAL.NEB NEB SCH ×4 (02:15→20:06)
[2023-11-17] MEDS: CLINDAMYCIN 900 MG in IV D5W 50 ML IV SCH ×2 (05:03→13:00)
[2023-11-17] MEDS: METOPROLOL TARTRATE 50 MG TABLET PO SCH ×3 (05:11→18:02)
[2023-11-17] MEDS: BLOOD SUGAR DIAGNOSTIC 1 EACH STRIP VI SCH ×4 (08:05→22:05)
[2023-11-17] MEDS: INSULIN REGULAR, HUMAN 100 UNIT/ML 3 ML VIAL SQ PRN ×3 (08:31→18:00)
[2023-11-17] MEDS: GUAIFENESIN LA 600 MG TABLET.SA PO SCH ×2 (09:35→21:42)
[2023-11-17] MEDS: Z GUARD REMEDY 4 OZ OINT TP SCH (09:50)
[2023-11-17] MEDS: RIVAROXABAN 10 MG TABLET PO SCH (09:50)
[2023-11-17] MEDS: DAKINS HALF STRENGTH (0.25%) 480 ML BOTTLE TOP SCH (09:51)
[2023-11-17] MEDS: FLUTICASONE PROPIONATE 16 GM BOTTLE NS SCH (09:51)
[2023-11-17] MEDS: MORPHINE SULFATE INJ 2 MG/ML DISP.SYRIN IV PRN (21:38)
[2023-11-17] MEDS: CLINDAMYCIN HCL 150 MG CAPSULE PO SCH (21:42)
[2023-11-17] MEDS: *INSULIN REGULAR(HUMULIN R)HUM 100 UNIT/ML VIAL SQ PRN (22:08)
[2023-11-18] VITALS (14 sets, daily range): BP systolic 135–155; BP diastolic 74–117; TEMP 97.5–98.7; O2SAT 0–100
[2023-11-18] MEDS: METOPROLOL TARTRATE 50 MG TABLET PO SCH ×4 (00:37→17:36)
[2023-11-18] MEDS: IPRATROPIUM NEB FS 0.5 MG/2.5 ML AMPUL.NEB NEB SCH ×4 (02:05→19:32)
[2023-11-18] MEDS: ALBUTEROL HALF STRENGTH 1.25 MG/3 ML VIAL.NEB NEB SCH ×4 (02:05→19:32)
[2023-11-18] MEDS: MORPHINE SULFATE INJ 2 MG/ML DISP.SYRIN IV PRN (03:48)
[2023-11-18] MEDS: BLOOD SUGAR DIAGNOSTIC 1 EACH STRIP VI SCH ×4 (07:54→21:34)
[2023-11-18] MEDS: INSULIN REGULAR, HUMAN 100 UNIT/ML 3 ML VIAL SQ PRN ×3 (07:55→17:50)
[2023-11-18] MEDS: CLINDAMYCIN HCL 150 MG CAPSULE PO SCH ×4 (09:10→21:34)
[2023-11-18] MEDS: FLUTICASONE PROPIONATE 16 GM BOTTLE NS SCH (09:12)
[2023-11-18] MEDS: RIVAROXABAN 10 MG TABLET PO SCH (09:12)
[2023-11-18] MEDS: GUAIFENESIN LA 600 MG TABLET.SA PO SCH ×2 (09:12→21:34)
[2023-11-18] MEDS: DAKINS HALF STRENGTH (0.25%) 480 ML BOTTLE TOP SCH (09:13)
[2023-11-18] MEDS: Z GUARD REMEDY 4 OZ OINT TP SCH (09:14)
[2023-11-18] MEDS: *INSULIN REGULAR(HUMULIN R)HUM 100 UNIT/ML VIAL SQ PRN (21:36)
[2023-11-18] MEDS: ACETAMINOPHEN 325 MG TABLET PO PRN (22:28)
[2023-11-19] VITALS (14 sets, daily range): BP systolic 128–145; BP diastolic 94–111; TEMP 97.7–98.5; O2SAT 90–99
[2023-11-19] MEDS: METOPROLOL TARTRATE 50 MG TABLET PO SCH ×4 (00:34→17:35)
[2023-11-19] MEDS: ALBUTEROL HALF STRENGTH 1.25 MG/3 ML VIAL.NEB NEB SCH ×4 (01:04→19:38)
[2023-11-19] MEDS: IPRATROPIUM NEB FS 0.5 MG/2.5 ML AMPUL.NEB NEB SCH ×4 (01:04→19:38)
[2023-11-19 07:03] LABS: BASOPHILS # (AUTO) 0.1 K/uL (0.0-0.2); EOSINOPHILS # (AUTO) 0.3 K/uL (0.0-0.7); EOSINOPHILS % (AUTO) 4.9 % (0.0-6.0); HEMATOCRIT 42 % (39-51); HEMOGLOBIN 13.4 g/dL (13.5-17.5); LYMPHOCYTES # (AUTO) 0.4 K/uL (0.8-4.8); LYMPHOCYTES % (AUTO) 6.8 % (20.0-44.0); MEAN CORPUSCULAR HEMOGLOBIN 28 PG (26.0-33.0); MEAN CORPUSCULAR HGB CONC 32 g/dl (31.0-36.0); MEAN CORPUSCULAR VOLUME 86 fL (80-96); MONOCYTES # (AUTO) 0.7 K/uL (0.1-1.30); MONOCYTES % (AUTO) 11.5 % (2.0-12.0); NEUTROPHILS # (AUTO) 4.5 K/uL (1.8-8.9); NEUTROPHILS % (AUTO) 75.8 % (43.0-81.0); PLATELET COUNT (AUTO) 284 K/uL (150-450); RED BLOOD CELL COUNT(AUTO) 4.86 MIL/uL (4.5-6.0); RED CELL DISTRIBUTION WIDTH 18.2 % (11.5-15.0)
[2023-11-19 07:13] LABS: CALCIUM, SERUM 9.2 mg/dL (8.5-10.1); POTASSIUM 3.7 mmol/L (3.5-5.1)
[2023-11-19] MEDS: BLOOD SUGAR DIAGNOSTIC 1 EACH STRIP VI SCH ×4 (07:59→21:23)
[2023-11-19] MEDS: INSULIN REGULAR, HUMAN 100 UNIT/ML 3 ML VIAL SQ PRN ×3 (08:15→17:36)
[2023-11-19] MEDS: GUAIFENESIN LA 600 MG TABLET.SA PO SCH ×2 (09:40→21:23)
[2023-11-19] MEDS: FLUTICASONE PROPIONATE 16 GM BOTTLE NS SCH (09:40)
[2023-11-19] MEDS: CLINDAMYCIN HCL 150 MG CAPSULE PO SCH ×4 (09:40→21:23)
[2023-11-19] MEDS: DAKINS HALF STRENGTH (0.25%) 480 ML BOTTLE TOP SCH (09:41)
[2023-11-19] MEDS: Z GUARD REMEDY 4 OZ OINT TP SCH (09:41)
[2023-11-19] MEDS: RIVAROXABAN 10 MG TABLET PO SCH (09:42)
[2023-11-19] MEDS: *INSULIN REGULAR(HUMULIN R)HUM 100 UNIT/ML VIAL SQ PRN (21:34)
[2023-11-20] VITALS (7 sets, daily range): BP systolic 132–146; BP diastolic 95–101; TEMP 97.7–98.3; O2SAT 94–97
[2023-11-20] MEDS: METOPROLOL TARTRATE 50 MG TABLET PO SCH ×3 (00:32→12:48)
[2023-11-20] MEDS: IPRATROPIUM NEB FS 0.5 MG/2.5 ML AMPUL.NEB NEB SCH ×3 (01:22→13:30)
[2023-11-20] MEDS: ALBUTEROL HALF STRENGTH 1.25 MG/3 ML VIAL.NEB NEB SCH ×3 (01:23→13:30)
[2023-11-20 06:57] LABS: BASOPHILS # (AUTO) 0.1 K/uL (0.0-0.2); BASOPHILS % (AUTO) 0.6 % (0.0-2.0); EOSINOPHILS # (AUTO) 0.2 K/uL (0.0-0.7); EOSINOPHILS % (AUTO) 3.1 % (0.0-6.0); HEMATOCRIT 41 % (39-51); HEMOGLOBIN 13.2 g/dL (13.5-17.5); LYMPHOCYTES # (AUTO) 0.4 K/uL (0.8-4.8); LYMPHOCYTES % (AUTO) 5.1 % (20.0-44.0); MEAN CORPUSCULAR HEMOGLOBIN 28 PG (26.0-33.0); MEAN CORPUSCULAR HGB CONC 32 g/dl (31.0-36.0); MEAN CORPUSCULAR VOLUME 87 fL (80-96); MONOCYTES # (AUTO) 0.9 K/uL (0.1-1.30); MONOCYTES % (AUTO) 10.9 % (2.0-12.0); NEUTROPHILS # (AUTO) 6.3 K/uL (1.8-8.9); NEUTROPHILS % (AUTO) 80.3 % (43.0-81.0); PLATELET COUNT (AUTO) 295 K/uL (150-450); RED BLOOD CELL COUNT(AUTO) 4.74 MIL/uL (4.5-6.0); RED CELL DISTRIBUTION WIDTH 17.7 % (11.5-15.0); WHITE BLOOD COUNT (AUTO) 7.9 K/uL (4.3-11.0)
[2023-11-20 07:42] LABS: CALCIUM, SERUM 8.9 mg/dL (8.5-10.1); POTASSIUM 3.7 mmol/L (3.5-5.1)
[2023-11-20] MEDS: BLOOD SUGAR DIAGNOSTIC 1 EACH STRIP VI SCH ×2 (07:47→13:09)
[2023-11-20] MEDS: CLINDAMYCIN HCL 150 MG CAPSULE PO SCH ×2 (10:20→12:47)
[2023-11-20] MEDS: GUAIFENESIN LA 600 MG TABLET.SA PO SCH (10:20)
[2023-11-20] MEDS: FLUTICASONE PROPIONATE 16 GM BOTTLE NS SCH (10:21)
[2023-11-20] MEDS: DAKINS HALF STRENGTH (0.25%) 480 ML BOTTLE TOP SCH (10:22)
[2023-11-20] MEDS: RIVAROXABAN 10 MG TABLET PO SCH (10:22)
[2023-11-20] MEDS: Z GUARD REMEDY 4 OZ OINT TP SCH (10:22)
[2023-11-20] MEDS ORDERED: FLUT16SP16 NS (11:54)
[2023-11-20] MEDS ORDERED: ALBU2.5V13 NEB (11:54)
[2023-11-20] MEDS ORDERED: SODI480S2 TOP (11:54)
[2023-11-20] MEDS ORDERED: IPRA0.2S9 NEB (11:54)
[2023-11-20] MEDS ORDERED: ALBU1.25 NEB (11:54)
[2023-11-20] MEDS ORDERED: GUAI600T53 PO (11:54)
[2023-11-20] MEDS ORDERED: METO50TA16 PO (11:54)
[2023-11-20] MEDS ORDERED: CLIN-27 PO (11:54)
== END 2023-11-20 14:41 | disposition home health service (06) | DRG 133 ==
LOC: ER 16:55 → TRANSITION 11-13 02:44 → TELE1 11-13 09:50 → TELE-TD 11-13 17:02 → TELE1 11-15 08:52
PROVIDERS: ADMIT Internal Medicine; ATTEND Nurse Practitioner Acute Care
PROC: 5A09357 Assistance with Respiratory Ventilation, Less than 24 Consecutive Hours, Continuous Positive Airway Pressure (ICD-10-PCS; principal; 2023-11-13)
DX: J96.21 Acute and chronic respiratory failure with hypoxia (principal); I50.33 Acute on chronic diastolic (congestive) heart failure; I27.20 Pulmonary hypertension, unspecified; L03.115 Cellulitis of right lower limb; L03.116 Cellulitis of left lower limb; E66.2 Morbid (severe) obesity with alveolar hypoventilation; E11.621 Type 2 diabetes mellitus with foot ulcer; I11.0 Hypertensive heart disease with heart failure; Z68.43 Body mass index [BMI] 50.0-59.9, adult; I48.91 Unspecified atrial fibrillation; D64.9 Anemia, unspecified; E87.6 Hypokalemia; F41.9 Anxiety disorder, unspecified; Z79.01 Long term (current) use of anticoagulants; Z79.4 Long term (current) use of insulin; Z91.199 Patient's noncompliance with other medical treatment and regimen due to unspecified reason; I87.8 Other specified disorders of veins; L97.419 Non-pressure chronic ulcer of right heel and midfoot with unspecified severity; I89.0 Lymphedema, not elsewhere classified
CPT/HCPCS: 36415; 36600; 71045-TC; 80048-TC; 80053-TC; 80076-TC; 82803-TC; 82962-TC; 83605-TC; 83735-TC; 83880; 84100-TC; 84484-TC; 85025-TC; 87040-TC; 93307-TC; 93971-TC; 94799-TC; 97116-TC; 97530-TC; A4223; G0378; J0282; J0456; J0696; J1815; J1940; J2270; J3490; J7050; J7060

== ENCOUNTER 2023-12-17 17:53 | Inpatient (IN) | payer OTHER ==
[~2023-12-17] VITALS: Ht 195.6 cm; Wt 215.9 kg
[~2023-12-17 17:53] MED LIST changes: +ALBU1.25 NEB; +ALBU2.5V13 NEB; -CEPH500C2 PO; +CLIN-27 PO; +FLUT16SP16 NS; +GUAI600T53 PO; +IPRA0.2S9 NEB; -METO-358 PO; +METO50TA16 PO; +SODI480S2 TOP
[2023-12-17 18:39] LABS: BASOPHILS % (AUTO) 0.6 % (0.0-2.0); EOSINOPHILS # (AUTO) 0.1 K/uL (0.0-0.7); EOSINOPHILS % (AUTO) 1.5 % (0.0-6.0); HEMATOCRIT 45 % (39-51); HEMOGLOBIN 13.9 g/dL (13.5-17.5); LYMPHOCYTES # (AUTO) 0.3 K/uL (0.8-4.8); LYMPHOCYTES % (AUTO) 3.6 % (20.0-44.0); MEAN CORPUSCULAR HEMOGLOBIN 27 PG (26.0-33.0); MEAN CORPUSCULAR HGB CONC 31 g/dl (31.0-36.0); MEAN CORPUSCULAR VOLUME 85 fL (80-96); MONOCYTES # (AUTO) 0.9 K/uL (0.1-1.30); MONOCYTES % (AUTO) 10.2 % (2.0-12.0); NEUTROPHILS # (AUTO) 7.3 K/uL (1.8-8.9); NEUTROPHILS % (AUTO) 84.1 % (43.0-81.0); PLATELET COUNT (AUTO) 400 K/uL (150-450); RED BLOOD CELL COUNT(AUTO) 5.22 MIL/uL (4.5-6.0); RED CELL DISTRIBUTION WIDTH 16.6 % (11.5-15.0); WHITE BLOOD COUNT (AUTO) 8.7 K/uL (4.3-11.0)
[2023-12-17] MEDS ORDERED: METO50TA16 PO (19:00)
[2023-12-17 19:01] LABS: INR 1.21 (0.91-1.10); PARTIAL THROMBOPLASTIN TIME 32.1 SEC (24.3-34.3); PROTHROMBIN TIME 12.7 SECS (9.2-11.1)
[2023-12-17] MEDS ORDERED: DICL100G26 TP (19:01)
[2023-12-17 19:09] LABS: CALCIUM, SERUM 9.1 mg/dL (8.5-10.1); CARBON DIOXIDE 29 mmol/L (21-32); CHLORIDE 101 mmol/L (98-107); CREATININE 1.3 mg/dL (0.6-1.3); GLUCOSE 190 mg/dL (74-106); POTASSIUM 3.1 mmol/L (3.5-5.1); SODIUM SERUM 137 mmol/L (136-145); UREA NITROGEN, BLOOD 12 mg/dL (7-18)
[2023-12-17 19:21] LABS: ALANINE AMINOTRANSFERASE 12 U/L (12-78); ALBUMIN 3.1 g/dL (3.4-5.0); ALKALINE PHOSPHATASE 154 U/L (46-116); ASPARTATE AMINOTRANSFERASE 24 U/L (15-37); BILIRUBIN,DIRECT 0.5 mg/dL (0.0-0.2); BILIRUBIN,TOTAL 1.9 mg/dL (0.2-1.0); NT-PRO BNP 2092 pg/mL (0-125); TOTAL PROTEIN, SERUM 9.3 g/dL (6.4-8.2)
[2023-12-17] MEDS ORDERED: ONDANSETRON HCL/PF 4 MG/2 ML VIAL IVP PRN (20:00)
[2023-12-17] MEDS ORDERED: DEXTROSE 50%-WATER 50 ML DISP.SYRIN IV PRN (20:00)
[2023-12-17] MEDS ORDERED: MAG HYDROX/AL HYDROX/SIMETH 30 ML UDC PO PRN (20:00)
[2023-12-17] MEDS ORDERED: ZOLPIDEM TARTRATE 5 MG TABLET PO PRN (20:00)
[2023-12-17] MEDS ORDERED: MAGNESIUM HYDROXIDE 30 ML UDC PO PRN (20:00)
[2023-12-17] MEDS ORDERED: FUROSEMIDE 40 MG/4 ML VIAL IV ONE (20:00)
[2023-12-17] MEDS ORDERED: Z GUARD REMEDY 4 OZ OINT TP PRN (20:00)
[2023-12-17] MEDS ORDERED: FUROSEMIDE 40 MG/4 ML VIAL ONE (20:01)
[2023-12-17] MEDS ORDERED: ACETAMINOPHEN 325 MG TABLET ONE (20:29)
[2023-12-17] MEDS: ACETAMINOPHEN 325 MG TABLET PO PRN (20:47)
[2023-12-17] MEDS ORDERED: DILTIAZEM HCL 25 MG IV IVP ONE (21:00)
[2023-12-17] MEDS ORDERED: DILTIAZEM HCL IV 125 MG in IV D5W 100 ML IV ONE (21:00)
[2023-12-17] MEDS ORDERED: DILTIAZEM HCL 25 MG IV ONE (21:22)
[2023-12-17] MEDS ORDERED: POTASSIUM CHLORIDE 20 MEQ TAB.PRT.SR PO ONE (21:30)
[2023-12-17] MEDS ORDERED: CLINDAMYCIN IV RTU IN D5W 900 MG/50 ML PIGGYBACK IV SCH (21:30)
[2023-12-17] MEDS: DILTIAZEM HCL IV 125 MG in IV NS 0.9% 100 ML IV PRN (22:15)
[2023-12-17 23:00] VITALS: BP 138/97; O2SAT 100
[2023-12-17 23:15] VITALS: BP 132/99; O2SAT 100
[2023-12-17] MEDS: GABAPENTIN 300 MG CAPSULE PO SCH (23:19)
[2023-12-17 23:20] VITALS: BP 122/62; TEMP 98.8; O2SAT 96
[2023-12-17] MEDS ORDERED: CLINDAMYCIN 900 MG/6 ML VIAL ONE (23:20)
[2023-12-17] MEDS ORDERED: INSULIN REGULAR, HUMAN 100 UNIT/ML 3 ML VIAL ONE (23:23)
[2023-12-17 23:30] VITALS: BP 128/99; O2SAT 99
[2023-12-17] MEDS: METOPROLOL TARTRATE 50 MG TABLET PO SCH (23:40)
[2023-12-17 23:45] VITALS: BP 128/96; O2SAT 100
[2023-12-17] MEDS: BLOOD SUGAR DIAGNOSTIC 1 EACH STRIP IN SCH (23:45)
[2023-12-17] MEDS: INSULIN REGULAR, HUMAN 100 UNIT/ML 3 ML VIAL SQ PRN (23:48)
[2023-12-17] MEDS: IV NS 0.9% 250 ML IV PRN (23:49)
[2023-12-18] VITALS (68 sets, daily range): BP systolic 55–129; BP diastolic 39–97; TEMP 97–98; O2SAT 83–100
[2023-12-18 04:27] LABS: BASOPHILS % (AUTO) 0.4 % (0.0-2.0); EOSINOPHILS # (AUTO) 0.1 K/uL (0.0-0.7); EOSINOPHILS % (AUTO) 0.6 % (0.0-6.0); HEMATOCRIT 42 % (39-51); HEMOGLOBIN 13.1 g/dL (13.5-17.5); LYMPHOCYTES # (AUTO) 0.3 K/uL (0.8-4.8); LYMPHOCYTES % (AUTO) 3.1 % (20.0-44.0); MEAN CORPUSCULAR HEMOGLOBIN 27 PG (26.0-33.0); MEAN CORPUSCULAR HGB CONC 31 g/dl (31.0-36.0); MEAN CORPUSCULAR VOLUME 86 fL (80-96); MONOCYTES # (AUTO) 1.3 K/uL (0.1-1.30); MONOCYTES % (AUTO) 12.4 % (2.0-12.0); NEUTROPHILS # (AUTO) 8.7 K/uL (1.8-8.9); NEUTROPHILS % (AUTO) 83.5 % (43.0-81.0); PLATELET COUNT (AUTO) 423 K/uL (150-450); RED CELL DISTRIBUTION WIDTH 16.4 % (11.5-15.0); WHITE BLOOD COUNT (AUTO) 10.4 K/uL (4.3-11.0)
[2023-12-18 04:40] LABS: CALCIUM, SERUM 8.9 mg/dL (8.5-10.1); CREATININE 1.2 mg/dL (0.6-1.3); MAGNESIUM 1.9 mg/dL (1.8-2.4); PHOSPHORUS 5.6 mg/dL (2.5-4.9); POTASSIUM 3.9 mmol/L (3.5-5.1)
[2023-12-18] MEDS: METOPROLOL TARTRATE 50 MG TABLET PO SCH ×3 (06:47→17:09)
[2023-12-18] MEDS ORDERED: FUROSEMIDE 40 MG/4 ML VIAL IV ONE (07:00)
[2023-12-18] MEDS: BLOOD SUGAR DIAGNOSTIC 1 EACH STRIP IN SCH ×4 (07:55→22:20)
[2023-12-18] MEDS: RIVAROXABAN 10 MG TABLET PO SCH (08:02)
[2023-12-18] MEDS: GABAPENTIN 300 MG CAPSULE PO SCH ×3 (08:02→17:06)
[2023-12-18] MEDS: CLOTRIMAZOLE 1% 15 GM TUBE TP SCH ×2 (08:05→17:04)
[2023-12-18] MEDS: CLINDAMYCIN 900 MG in IV D5W 50 ML IV SCH ×3 (08:05→21:52)
[2023-12-18] MEDS: DILTIAZEM HCL IV 125 MG in IV NS 0.9% 100 ML IV PRN (08:24)
[2023-12-18] MEDS: FUROSEMIDE 40 MG/4 ML VIAL IV SCH ×2 (08:26→22:01)
[2023-12-18] MEDS: ACETAMINOPHEN 325 MG TABLET PO PRN (08:57)
[2023-12-18] MEDS ORDERED: GABAPENTIN 300 MG CAPSULE PO SCH (09:00)
[2023-12-18] MEDS ORDERED: AMIODARONE HCL 200 MG TABLET PO SCH (09:00)
[2023-12-18] MEDS: DIGOXIN INJ 0.5 MG/2 ML AMPUL IV SCH ×2 (12:35→17:05)
[2023-12-18] MEDS: INSULIN REGULAR, HUMAN 100 UNIT/ML 3 ML VIAL SQ PRN ×2 (12:37→22:21)
[2023-12-19] VITALS (27 sets, daily range): BP systolic 79–129; BP diastolic 51–93; TEMP 97.8–98.3; O2SAT 63–100
[2023-12-19] MEDS: DIGOXIN INJ 0.5 MG/2 ML AMPUL IV SCH
[2023-12-19] MEDS: DILTIAZEM HCL IV 125 MG in IV NS 0.9% 100 ML IV PRN (01:06)
[2023-12-19] MEDS ORDERED: DIGOXIN INJ 0.5 MG/2 ML AMPUL ONE (01:28)
[2023-12-19 05:20] LABS: BASOPHILS # (AUTO) 0.1 K/uL (0.0-0.2); BASOPHILS % (AUTO) 0.6 % (0.0-2.0); EOSINOPHILS # (AUTO) 0.1 K/uL (0.0-0.7); EOSINOPHILS % (AUTO) 0.8 % (0.0-6.0); HEMATOCRIT 38 % (39-51); LYMPHOCYTES # (AUTO) 0.3 K/uL (0.8-4.8); MEAN CORPUSCULAR HEMOGLOBIN 27 PG (26.0-33.0); MEAN CORPUSCULAR HGB CONC 31 g/dl (31.0-36.0); MEAN CORPUSCULAR VOLUME 85 fL (80-96); MONOCYTES # (AUTO) 1.2 K/uL (0.1-1.30); MONOCYTES % (AUTO) 14.5 % (2.0-12.0); NEUTROPHILS # (AUTO) 6.7 K/uL (1.8-8.9); NEUTROPHILS % (AUTO) 80.1 % (43.0-81.0); PLATELET COUNT (AUTO) 403 K/uL (150-450); RED BLOOD CELL COUNT(AUTO) 4.52 MIL/uL (4.5-6.0); RED CELL DISTRIBUTION WIDTH 16.7 % (11.5-15.0); WHITE BLOOD COUNT (AUTO) 8.3 K/uL (4.3-11.0)
[2023-12-19 05:35] LABS: CALCIUM, SERUM 8.4 mg/dL (8.5-10.1); CREATININE 1.6 mg/dL (0.6-1.3); POTASSIUM 3.7 mmol/L (3.5-5.1)
[2023-12-19] MEDS: CLINDAMYCIN 900 MG in IV D5W 50 ML IV SCH ×3 (06:18→20:26)
[2023-12-19] MEDS: METOPROLOL TARTRATE 50 MG TABLET PO SCH ×5 (06:19→23:59)
[2023-12-19] MEDS: BLOOD SUGAR DIAGNOSTIC 1 EACH STRIP IN SCH ×4 (06:29→22:11)
[2023-12-19] MEDS: FUROSEMIDE 40 MG/4 ML VIAL IV SCH ×2 (08:31→20:27)
[2023-12-19] MEDS: DILTIAZEM HCL CD 240 MG PO SCH (08:32)
[2023-12-19] MEDS: RIVAROXABAN 10 MG TABLET PO SCH (08:33)
[2023-12-19] MEDS: GABAPENTIN 300 MG CAPSULE PO SCH ×3 (08:33→17:30)
[2023-12-19] MEDS: DAKINS HALF STRENGTH (0.25%) 480 ML BOTTLE TOP SCH (08:34)
[2023-12-19] MEDS: CLOTRIMAZOLE 1% 15 GM TUBE TP SCH ×2 (08:35→17:24)
[2023-12-19] MEDS: INSULIN REGULAR, HUMAN 100 UNIT/ML 3 ML VIAL SQ PRN ×4 (08:37→22:15)
[2023-12-19] MEDS: PROSOURCE / PROSTAT (PYXIS) 30 ML UDC PO SCH ×2 (11:34→17:24)
[2023-12-19 14:33] LABS: ABG OXYGEN SATURATION 96.3 % (92.0-98.5); ABG PH 7.322 (7.350-7.450); ABG PO2 90.4 mmHg (75.0-100.0); ABG TOTAL HEMOGLOBIN 13.7 G/dL (13.5-18.0); AaDO2 128.1 mmHg; COHb 1.8 % (0.5-1.5); MetHb 0.2 % (0.0-1.5); O2Hb 94.4 % (94.0-97.0); SITE, ABG Right Radial; VENT MODE, BG 5LPM NC
[2023-12-19] MEDS: IV NS 0.9% 250 ML IV PRN (18:21)
[2023-12-20] VITALS (24 sets, daily range): BP systolic 85–126; BP diastolic 60–86; TEMP 97.5–100.9; O2SAT 77–100
[2023-12-20 02:07] LABS: APPEARANCE,URINE CLOUDY (CLEAR); BILIRUBIN,URINE NEGATIVE (NEGATIVE); BLOOD, URINE 2+ Ery/uL (NEGATIVE); COLOR,URINE DARK YELLOW (YELLOW); KETONES,URINE NEGATIVE (NEGATIVE); LEUKOCYTE ESTERASE ,URINE 1+ (NEGATIVE); NITRITE, URINE POSITIVE (NEGATIVE); PH,URINE 5.5 (5.0-8.0); PROTEIN,URINE TRACE mg/dl (NEGATIVE); UGLUCOSE NEGATIVE (NEGATIVE)
[2023-12-20 02:18] LABS: ADD URINE CULTURE YES; BACTERIA,URINE Few /HPF (None Seen); EOSINOPHIL,URINE None Seen; SQUAMOUS EPITHELIAL CELL,UR Rare /HPF (None Seen)
[2023-12-20 04:41] LABS: BASOPHILS % (AUTO) 0.8 % (0.0-2.0); EOSINOPHILS # (AUTO) 0.1 K/uL (0.0-0.7); EOSINOPHILS % (AUTO) 1.5 % (0.0-6.0); HEMATOCRIT 40 % (39-51); HEMOGLOBIN 12.4 g/dL (13.5-17.5); LYMPHOCYTES # (AUTO) 0.4 K/uL (0.8-4.8); LYMPHOCYTES % (AUTO) 5.8 % (20.0-44.0); MEAN CORPUSCULAR HEMOGLOBIN 26 PG (26.0-33.0); MEAN CORPUSCULAR HGB CONC 31 g/dl (31.0-36.0); MEAN CORPUSCULAR VOLUME 85 fL (80-96); MONOCYTES # (AUTO) 0.9 K/uL (0.1-1.30); MONOCYTES % (AUTO) 13.6 % (2.0-12.0); NEUTROPHILS # (AUTO) 4.9 K/uL (1.8-8.9); NEUTROPHILS % (AUTO) 78.3 % (43.0-81.0); PLATELET COUNT (AUTO) 346 K/uL (150-450); RED BLOOD CELL COUNT(AUTO) 4.68 MIL/uL (4.5-6.0); RED CELL DISTRIBUTION WIDTH 16.9 % (11.5-15.0); WHITE BLOOD COUNT (AUTO) 6.3 K/uL (4.3-11.0)
[2023-12-20] MEDS: CLINDAMYCIN 900 MG in IV D5W 50 ML IV SCH ×3 (04:53→20:51)
[2023-12-20 05:02] LABS: CALCIUM, SERUM 8.5 mg/dL (8.5-10.1); CREATININE 1.4 mg/dL (0.6-1.3); POTASSIUM 3.8 mmol/L (3.5-5.1)
[2023-12-20] MEDS: ACETAMINOPHEN 325 MG TABLET PO PRN (05:58)
[2023-12-20] MEDS: METOPROLOL TARTRATE 50 MG TABLET PO SCH ×4 (06:00→23:49)
[2023-12-20] MEDS: GABAPENTIN 300 MG CAPSULE PO SCH ×3 (08:04→17:13)
[2023-12-20] MEDS: DILTIAZEM HCL CD 240 MG PO SCH (08:04)
[2023-12-20] MEDS: FUROSEMIDE 40 MG/4 ML VIAL IV SCH ×2 (08:06→20:51)
[2023-12-20] MEDS: INSULIN REGULAR, HUMAN 100 UNIT/ML 3 ML VIAL SQ PRN ×4 (08:08→22:27)
[2023-12-20] MEDS: BLOOD SUGAR DIAGNOSTIC 1 EACH STRIP IN SCH ×4 (08:08→22:22)
[2023-12-20] MEDS: PROSOURCE / PROSTAT (PYXIS) 30 ML UDC PO SCH ×2 (08:09→17:14)
[2023-12-20] MEDS: RIVAROXABAN 10 MG TABLET PO SCH (08:11)
[2023-12-20] MEDS: DAKINS HALF STRENGTH (0.25%) 480 ML BOTTLE TOP SCH (08:20)
[2023-12-20] MEDS: CLOTRIMAZOLE 1% 15 GM TUBE TP SCH ×2 (08:20→17:14)
[2023-12-20] MEDS ORDERED: SALINE NASAL SPRAY 0.65% 1 BOTTLE BOTTLE NS PRN (14:00)
[2023-12-21] VITALS (24 sets, daily range): BP systolic 115–159; BP diastolic 41–108; TEMP 97.5–99.6; O2SAT 87–98
[2023-12-21] MEDS: CLINDAMYCIN 900 MG in IV D5W 50 ML IV SCH (04:46)
[2023-12-21] MEDS: METOPROLOL TARTRATE 50 MG TABLET PO SCH ×4 (06:17→23:01)
[2023-12-21] MEDS: FUROSEMIDE 40 MG/4 ML VIAL IV SCH ×2 (08:35→22:35)
[2023-12-21] MEDS: BLOOD SUGAR DIAGNOSTIC 1 EACH STRIP IN SCH ×4 (08:35→22:50)
[2023-12-21] MEDS: RIVAROXABAN 10 MG TABLET PO SCH (08:36)
[2023-12-21] MEDS: GABAPENTIN 300 MG CAPSULE PO SCH ×3 (08:37→17:22)
[2023-12-21] MEDS: DILTIAZEM HCL CD 240 MG PO SCH (08:38)
[2023-12-21] MEDS: DAKINS HALF STRENGTH (0.25%) 480 ML BOTTLE TOP SCH (08:38)
[2023-12-21] MEDS: PROSOURCE / PROSTAT (PYXIS) 30 ML UDC PO SCH ×2 (08:39→17:23)
[2023-12-21] MEDS: CLOTRIMAZOLE 1% 15 GM TUBE TP SCH ×2 (08:39→17:24)
[2023-12-21] MEDS: FLUTICASONE PROPIONATE 16 GM BOTTLE NS SCH ×2 (08:42→17:23)
[2023-12-21] MEDS: CLINDAMYCIN HCL 150 MG CAPSULE PO SCH ×3 (12:54→22:59)
[2023-12-21] MEDS: INSULIN REGULAR, HUMAN 100 UNIT/ML 3 ML VIAL SQ PRN ×3 (12:58→22:50)
[2023-12-21] MEDS: ACETYLCYSTEINE 10% SOLN 400 MG/4 ML VIAL NEB SCH (17:06)
[2023-12-22] VITALS (11 sets, daily range): BP systolic 110–164; BP diastolic 72–98; TEMP 97–98.5; O2SAT 94–98
[2023-12-22] MEDS: ACETYLCYSTEINE 10% SOLN 400 MG/4 ML VIAL NEB SCH ×3 (00:23→15:27)
[2023-12-22] MEDS: METOPROLOL TARTRATE 50 MG TABLET PO SCH ×3 (06:46→17:05)
[2023-12-22] MEDS: CLINDAMYCIN HCL 150 MG CAPSULE PO SCH ×3 (06:47→17:06)
[2023-12-22] MEDS: GABAPENTIN 300 MG CAPSULE PO SCH ×3 (08:33→17:06)
[2023-12-22] MEDS: FUROSEMIDE 40 MG/4 ML VIAL IV SCH (08:33)
[2023-12-22] MEDS: RIVAROXABAN 10 MG TABLET PO SCH (08:34)
[2023-12-22] MEDS: DILTIAZEM HCL CD 240 MG PO SCH (08:35)
[2023-12-22] MEDS: BLOOD SUGAR DIAGNOSTIC 1 EACH STRIP IN SCH ×4 (08:38→22:08)
[2023-12-22] MEDS: INSULIN REGULAR, HUMAN 100 UNIT/ML 3 ML VIAL SQ PRN ×3 (08:38→22:07)
[2023-12-22] MEDS: FLUTICASONE PROPIONATE 16 GM BOTTLE NS SCH ×2 (08:39→17:07)
[2023-12-22] MEDS: PROSOURCE / PROSTAT (PYXIS) 30 ML UDC PO SCH ×2 (08:40→17:06)
[2023-12-22] MEDS: CLOTRIMAZOLE 1% 15 GM TUBE TP SCH ×2 (08:41→17:06)
[2023-12-22] MEDS: DAKINS HALF STRENGTH (0.25%) 480 ML BOTTLE TOP SCH (08:41)
[2023-12-22] MEDS: hydrALAZINE HCL 50 MG TABLET PO SCH ×3 (11:28→17:07)
[2023-12-23] VITALS (11 sets, daily range): BP systolic 123–143; BP diastolic 82–100; TEMP 97.5–98.7; O2SAT 91–97
[2023-12-23] MEDS: ACETYLCYSTEINE 10% SOLN 400 MG/4 ML VIAL NEB SCH ×3 (00:06→15:46)
[2023-12-23] MEDS: METOPROLOL TARTRATE 50 MG TABLET PO SCH ×4 (00:16→17:16)
[2023-12-23] MEDS: CLINDAMYCIN HCL 150 MG CAPSULE PO SCH ×4 (00:17→17:17)
[2023-12-23] MEDS: BLOOD SUGAR DIAGNOSTIC 1 EACH STRIP IN SCH ×4 (06:31→22:18)
[2023-12-23 07:20] LABS: BASOPHILS # (AUTO) 0.1 K/uL (0.0-0.2); BASOPHILS % (AUTO) 0.9 % (0.0-2.0); EOSINOPHILS # (AUTO) 0.2 K/uL (0.0-0.7); EOSINOPHILS % (AUTO) 3.1 % (0.0-6.0); HEMATOCRIT 42 % (39-51); HEMOGLOBIN 13.1 g/dL (13.5-17.5); LYMPHOCYTES # (AUTO) 0.4 K/uL (0.8-4.8); LYMPHOCYTES % (AUTO) 6.1 % (20.0-44.0); MEAN CORPUSCULAR HEMOGLOBIN 26 PG (26.0-33.0); MEAN CORPUSCULAR HGB CONC 31 g/dl (31.0-36.0); MEAN CORPUSCULAR VOLUME 84 fL (80-96); MONOCYTES # (AUTO) 0.8 K/uL (0.1-1.30); MONOCYTES % (AUTO) 12.6 % (2.0-12.0); NEUTROPHILS # (AUTO) 4.7 K/uL (1.8-8.9); NEUTROPHILS % (AUTO) 77.3 % (43.0-81.0); PLATELET COUNT (AUTO) 352 K/uL (150-450); WHITE BLOOD COUNT (AUTO) 6.1 K/uL (4.3-11.0)
[2023-12-23] MEDS: DILTIAZEM HCL CD 240 MG PO SCH (08:19)
[2023-12-23] MEDS: GABAPENTIN 300 MG CAPSULE PO SCH ×4 (08:19→17:00)
[2023-12-23] MEDS: RIVAROXABAN 10 MG TABLET PO SCH (08:20)
[2023-12-23] MEDS: PROSOURCE / PROSTAT (PYXIS) 30 ML UDC PO SCH ×2 (08:21→17:00)
[2023-12-23] MEDS: hydrALAZINE HCL 50 MG TABLET PO SCH ×3 (08:21→17:14)
[2023-12-23] MEDS: FLUTICASONE PROPIONATE 16 GM BOTTLE NS SCH ×2 (08:22→17:20)
[2023-12-23] MEDS: DAKINS HALF STRENGTH (0.25%) 480 ML BOTTLE TOP SCH (08:22)
[2023-12-23] MEDS: CLOTRIMAZOLE 1% 15 GM TUBE TP SCH ×2 (08:22→17:14)
[2023-12-23 09:03] LABS: POTASSIUM 3.6 mmol/L (3.5-5.1)
[2023-12-23] MEDS: GUAIFENESIN LA 600 MG TABLET.SA PO PRN ×2 (10:34→17:25)
[2023-12-23] MEDS: INSULIN REGULAR, HUMAN 100 UNIT/ML 3 ML VIAL SQ PRN ×3 (12:04→22:24)
[2023-12-24] VITALS (13 sets, daily range): BP systolic 124–145; BP diastolic 83–103; TEMP 97.5–98.6; O2SAT 92–98
[2023-12-24] MEDS: CLINDAMYCIN HCL 150 MG CAPSULE PO SCH ×4 (00:01→17:23)
[2023-12-24] MEDS: METOPROLOL TARTRATE 50 MG TABLET PO SCH ×4 (00:06→17:25)
[2023-12-24] MEDS: ACETYLCYSTEINE 10% SOLN 400 MG/4 ML VIAL NEB SCH ×3 (00:12→15:14)
[2023-12-24] MEDS: ACETAMINOPHEN 325 MG TABLET PO PRN (02:26)
[2023-12-24] MEDS: GUAIFENESIN LA 600 MG TABLET.SA PO PRN ×2 (05:36→11:30)
[2023-12-24 06:57] LABS: BASOPHILS % (AUTO) 0.6 % (0.0-2.0); EOSINOPHILS # (AUTO) 0.2 K/uL (0.0-0.7); EOSINOPHILS % (AUTO) 3.7 % (0.0-6.0); HEMATOCRIT 41 % (39-51); HEMOGLOBIN 13.1 g/dL (13.5-17.5); LYMPHOCYTES # (AUTO) 0.4 K/uL (0.8-4.8); LYMPHOCYTES % (AUTO) 5.9 % (20.0-44.0); MEAN CORPUSCULAR HEMOGLOBIN 27 PG (26.0-33.0); MEAN CORPUSCULAR HGB CONC 32 g/dl (31.0-36.0); MEAN CORPUSCULAR VOLUME 83 fL (80-96); MONOCYTES # (AUTO) 0.7 K/uL (0.1-1.30); MONOCYTES % (AUTO) 10.9 % (2.0-12.0); NEUTROPHILS # (AUTO) 5.3 K/uL (1.8-8.9); NEUTROPHILS % (AUTO) 78.9 % (43.0-81.0); PLATELET COUNT (AUTO) 335 K/uL (150-450); RED BLOOD CELL COUNT(AUTO) 4.92 MIL/uL (4.5-6.0); WHITE BLOOD COUNT (AUTO) 6.7 K/uL (4.3-11.0)
[2023-12-24 07:11] LABS: CALCIUM, SERUM 9.1 mg/dL (8.5-10.1); CREATININE 0.9 mg/dL (0.6-1.3); POTASSIUM 3.8 mmol/L (3.5-5.1)
[2023-12-24] MEDS: BLOOD SUGAR DIAGNOSTIC 1 EACH STRIP IN SCH ×3 (07:31→16:57)
[2023-12-24] MEDS: DAKINS HALF STRENGTH (0.25%) 480 ML BOTTLE TOP SCH (08:21)
[2023-12-24] MEDS: PROSOURCE / PROSTAT (PYXIS) 30 ML UDC PO SCH ×2 (08:21→16:45)
[2023-12-24] MEDS: CLOTRIMAZOLE 1% 15 GM TUBE TP SCH ×2 (08:22→16:46)
[2023-12-24] MEDS: GABAPENTIN 300 MG CAPSULE PO SCH ×3 (08:28→17:23)
[2023-12-24] MEDS: hydrALAZINE HCL 50 MG TABLET PO SCH ×3 (08:28→17:24)
[2023-12-24] MEDS: DILTIAZEM HCL CD 240 MG PO SCH (08:29)
[2023-12-24] MEDS: FLUTICASONE PROPIONATE 16 GM BOTTLE NS SCH ×2 (08:30→16:45)
[2023-12-24] MEDS: RIVAROXABAN 10 MG TABLET PO SCH (08:30)
[2023-12-24] MEDS ORDERED: CLIN-27 PO (09:53)
[2023-12-24] MEDS ORDERED: HYDR-4077 PO (09:53)
[2023-12-24] MEDS ORDERED: DILT240C88 PO (09:53)
[2023-12-24] MEDS ORDERED: FURO-144 PO (09:53)
[2023-12-24] MEDS: INSULIN REGULAR, HUMAN 100 UNIT/ML 3 ML VIAL SQ PRN (17:03)
== END 2023-12-24 18:46 | disposition home health service (06) | DRG 194 ==
LOC: ER 18:08 → ICU 21:28 → TELE-TD 12-21 20:39 → TELE1 12-21 20:53 → MEDSG1 12-24 11:23
PROVIDERS: ADMIT Nurse Practitioner Acute Care; ATTEND Internal Medicine
PROC: 0HDMXZZ Extraction of Right Foot Skin, External Approach (ICD-10-PCS; 2023-12-18)
PROC: 5A09357 Assistance with Respiratory Ventilation, Less than 24 Consecutive Hours, Continuous Positive Airway Pressure (ICD-10-PCS; principal; 2023-12-20)
DX: I13.0 Hypertensive heart and chronic kidney disease with heart failure and stage 1 through stage 4 chronic kidney disease, or unspecified chronic kidney disease (principal); J96.01 Acute respiratory failure with hypoxia; E44.0 Moderate protein-calorie malnutrition; E87.3 Alkalosis; I27.20 Pulmonary hypertension, unspecified; E83.9 Disorder of mineral metabolism, unspecified; N17.9 Acute kidney failure, unspecified; E66.2 Morbid (severe) obesity with alveolar hypoventilation; I48.91 Unspecified atrial fibrillation; I50.33 Acute on chronic diastolic (congestive) heart failure; E88.09 Other disorders of plasma-protein metabolism, not elsewhere classified; L03.115 Cellulitis of right lower limb; J90 Pleural effusion, not elsewhere classified; L03.116 Cellulitis of left lower limb; D64.9 Anemia, unspecified; E78.5 Hyperlipidemia, unspecified; I89.0 Lymphedema, not elsewhere classified; Z91.199 Patient's noncompliance with other medical treatment and regimen due to unspecified reason; R74.01 Elevation of levels of liver transaminase levels; E87.6 Hypokalemia; Z68.43 Body mass index [BMI] 50.0-59.9, adult; E11.621 Type 2 diabetes mellitus with foot ulcer; L97.419 Non-pressure chronic ulcer of right heel and midfoot with unspecified severity; L97.429 Non-pressure chronic ulcer of left heel and midfoot with unspecified severity; I87.313 Chronic venous hypertension (idiopathic) with ulcer of bilateral lower extremity; L97.829 Non-pressure chronic ulcer of other part of left lower leg with unspecified severity; L97.819 Non-pressure chronic ulcer of other part of right lower leg with unspecified severity; E11.22 Type 2 diabetes mellitus with diabetic chronic kidney disease; N18.9 Chronic kidney disease, unspecified; Z79.01 Long term (current) use of anticoagulants; Z79.4 Long term (current) use of insulin; Z53.20 Procedure and treatment not carried out because of patient's decision for unspecified reasons
CPT/HCPCS: 36410; 36415; 36600; 71045-TC; 80048-TC; 80076-TC; 81001; 82962-TC; 83735-TC; 83880; 84100-TC; 84484-TC; 85025-TC; 85730-TC; 87086-TC; 94799-TC; 97112-TC; 97530-TC; A4223; A6253; A6403; G0378; J1160; J1815; J1940; J3490; J7030; J7050; J7060

== ENCOUNTER 2024-01-11 17:01 | Inpatient (IN) | payer OTHER ==
[~2024-01-11] VITALS: Ht 182.9 cm; Wt 213.2 kg
[~2024-01-11 17:01] MED LIST changes: -ACET-2605 PO; -ACID1TAB4 PO; -ALBU1.25 NEB; -ALBU2.5V13 NEB; -AMIO100T4 PO; -BUME2TAB7 PO; +DILT240C88 PO; -FLUT16SP16 NS; +FURO-144 PO; -GUAI600T53 PO; +HYDR-4077 PO; -INSU100V7 SQ; -IPRA0.2S9 NEB; -ISOPROPYL ALCOHOL TP; -NALO4SPR NS; -SODI480S2 TOP
[2024-01-11 17:51] LABS: BASOPHILS % (AUTO) 0.7 % (0.0-2.0); EOSINOPHILS # (AUTO) 0.2 K/uL (0.0-0.7); EOSINOPHILS % (AUTO) 2.1 % (0.0-6.0); HEMATOCRIT 39 % (39-51); HEMOGLOBIN 12.3 g/dL (13.5-17.5); LYMPHOCYTES # (AUTO) 0.3 K/uL (0.8-4.8); LYMPHOCYTES % (AUTO) 4.3 % (20.0-44.0); MEAN CORPUSCULAR HEMOGLOBIN 26 PG (26.0-33.0); MEAN CORPUSCULAR HGB CONC 32 g/dl (31.0-36.0); MEAN CORPUSCULAR VOLUME 83 fL (80-96); MONOCYTES # (AUTO) 0.8 K/uL (0.1-1.30); MONOCYTES % (AUTO) 11.7 % (2.0-12.0); NEUTROPHILS # (AUTO) 5.7 K/uL (1.8-8.9); NEUTROPHILS % (AUTO) 81.2 % (43.0-81.0); PLATELET COUNT (AUTO) 365 K/uL (150-450); RED BLOOD CELL COUNT(AUTO) 4.72 MIL/uL (4.5-6.0); RED CELL DISTRIBUTION WIDTH 17.4 % (11.5-15.0); WHITE BLOOD COUNT (AUTO) 7.1 K/uL (4.3-11.0)
[2024-01-11 18:10] LABS: ALANINE AMINOTRANSFERASE 15 U/L (12-78); ALKALINE PHOSPHATASE 230 U/L (46-116); ASPARTATE AMINOTRANSFERASE 12 U/L (15-37); BILIRUBIN,DIRECT 0.4 mg/dL (0.0-0.2); BILIRUBIN,TOTAL 1.3 mg/dL (0.2-1.0); CALCIUM, SERUM 9.3 mg/dL (8.5-10.1); CARBON DIOXIDE 27 mmol/L (21-32); CHLORIDE 102 mmol/L (98-107); CREATININE 1.2 mg/dL (0.6-1.3); NT-PRO BNP 2739 pg/mL (0-125); POTASSIUM 4.1 mmol/L (3.5-5.1); SODIUM SERUM 139 mmol/L (136-145); TOTAL PROTEIN, SERUM 8.6 g/dL (6.4-8.2); UREA NITROGEN, BLOOD 12 mg/dL (7-18)
[2024-01-11 18:11] LABS: GLUCOSE 134 mg/dL (74-106)
[2024-01-11] MEDS ORDERED: ZOLPIDEM TARTRATE 5 MG TABLET PO PRN (18:30)
[2024-01-11] MEDS ORDERED: Z GUARD REMEDY 4 OZ OINT TP PRN (18:30)
[2024-01-11] MEDS ORDERED: ONDANSETRON HCL/PF 4 MG/2 ML VIAL IVP PRN (18:30)
[2024-01-11] MEDS ORDERED: MAGNESIUM HYDROXIDE 30 ML UDC PO PRN (18:30)
[2024-01-11] MEDS ORDERED: MAG HYDROX/AL HYDROX/SIMETH 30 ML UDC PO PRN (18:30)
[2024-01-11] MEDS ORDERED: DEXTROSE 50%-WATER 50 ML DISP.SYRIN IV PRN (18:30)
[2024-01-11 22:34] VITALS: BP 146/107; TEMP 98; O2SAT 99
[2024-01-11] MEDS: BLOOD SUGAR DIAGNOSTIC 1 EACH STRIP IN SCH (22:34)
[2024-01-11] MEDS: FUROSEMIDE 40 MG/4 ML VIAL IV SCH (23:27)
[2024-01-11] MEDS: FUROSEMIDE 40 MG/4 ML VIAL IV ONE (23:27)
[2024-01-11] MEDS: METOPROLOL TARTRATE 50 MG TABLET PO SCH (23:42)
[2024-01-11] MEDS: ACETAMINOPHEN 325 MG TABLET PO PRN (23:50)
[2024-01-11] MEDS ORDERED: CLINDAMYCIN 900 MG/6 ML VIAL ONE (23:57)
[2024-01-12] MEDS: CLINDAMYCIN IV RTU IN D5W 600 MG/50 ML PIGGYBACK IV ONE (00:02)
[2024-01-12 00:30] VITALS: BP 131/98; TEMP 97.9; O2SAT 93
[2024-01-12] MEDS: BUMETANIDE (1 MG) 1 MG TABLET PO SCH (00:50)
[2024-01-12 04:00] VITALS: BP 107/60; TEMP 99; O2SAT 94
[2024-01-12] MEDS: HYDROCODONE/APAP 5/325MG TABLET PO PRN (06:08)
[2024-01-12] MEDS: INSULIN REGULAR, HUMAN 100 UNIT/ML 3 ML VIAL SQ PRN (06:31)
[2024-01-12 07:14] LABS: BASOPHILS % (AUTO) 0.3 % (0.0-2.0); EOSINOPHILS # (AUTO) 0.1 K/uL (0.0-0.7); EOSINOPHILS % (AUTO) 0.8 % (0.0-6.0); HEMATOCRIT 38 % (39-51); HEMOGLOBIN 11.6 g/dL (13.5-17.5); LYMPHOCYTES # (AUTO) 0.3 K/uL (0.8-4.8); LYMPHOCYTES % (AUTO) 3.6 % (20.0-44.0); MEAN CORPUSCULAR HEMOGLOBIN 26 PG (26.0-33.0); MEAN CORPUSCULAR HGB CONC 31 g/dl (31.0-36.0); MEAN CORPUSCULAR VOLUME 84 fL (80-96); MONOCYTES # (AUTO) 1.1 K/uL (0.1-1.30); MONOCYTES % (AUTO) 15.3 % (2.0-12.0); NEUTROPHILS # (AUTO) 5.8 K/uL (1.8-8.9); PLATELET COUNT (AUTO) 367 K/uL (150-450); RED BLOOD CELL COUNT(AUTO) 4.48 MIL/uL (4.5-6.0); WHITE BLOOD COUNT (AUTO) 7.3 K/uL (4.3-11.0)
[2024-01-12 07:37] LABS: CALCIUM, SERUM 8.8 mg/dL (8.5-10.1); CREATININE 0.9 mg/dL (0.6-1.3); MAGNESIUM 1.9 mg/dL (1.8-2.4); PHOSPHORUS 4.7 mg/dL (2.5-4.9); POTASSIUM 4.2 mmol/L (3.5-5.1)
[2024-01-12 08:00] VITALS: BP 122/81; TEMP 97.7; O2SAT 94
[2024-01-12] MEDS: RIVAROXABAN 10 MG TABLET PO SCH (09:33)
[2024-01-12] MEDS: GABAPENTIN 400 MG CAPSULE PO SCH (09:33)
[2024-01-12] MEDS: PANTOPRAZOLE 40 MG VIAL IV SCH (09:34)
[2024-01-12] MEDS: hydrALAZINE HCL 50 MG TABLET PO SCH (09:34)
[2024-01-12] MEDS: DILTIAZEM HCL CD 240 MG PO SCH (09:35)
[2024-01-12 12:00] VITALS: BP 146/86; TEMP 98.2; O2SAT 99
[2024-01-12 16:00] VITALS: BP 113/66; TEMP 97.7; O2SAT 99
[2024-01-12 20:00] VITALS: BP 117/81; TEMP 98.8; O2SAT 98
[2024-01-12] MEDS: MORPHINE SULFATE INJ 2 MG/ML DISP.SYRIN IV PRN (22:10)
[2024-01-13] VITALS: BP 125/85; TEMP 98.5; O2SAT 98
[2024-01-13 04:00] VITALS: BP 120/83; TEMP 98.2; O2SAT 97
[2024-01-13 06:38] LABS: BASOPHILS % (AUTO) 0.4 % (0.0-2.0); EOSINOPHILS # (AUTO) 0.2 K/uL (0.0-0.7); EOSINOPHILS % (AUTO) 2.5 % (0.0-6.0); HEMATOCRIT 39 % (39-51); HEMOGLOBIN 12.2 g/dL (13.5-17.5); LYMPHOCYTES # (AUTO) 0.4 K/uL (0.8-4.8); LYMPHOCYTES % (AUTO) 5.6 % (20.0-44.0); MEAN CORPUSCULAR HEMOGLOBIN 26 PG (26.0-33.0); MEAN CORPUSCULAR HGB CONC 31 g/dl (31.0-36.0); MEAN CORPUSCULAR VOLUME 83 fL (80-96); MONOCYTES # (AUTO) 1.1 K/uL (0.1-1.30); NEUTROPHILS # (AUTO) 5.3 K/uL (1.8-8.9); NEUTROPHILS % (AUTO) 75.5 % (43.0-81.0); PLATELET COUNT (AUTO) 389 K/uL (150-450); RED BLOOD CELL COUNT(AUTO) 4.69 MIL/uL (4.5-6.0); RED CELL DISTRIBUTION WIDTH 17.3 % (11.5-15.0)
[2024-01-13 07:14] LABS: CALCIUM, SERUM 9.1 mg/dL (8.5-10.1); CREATININE 1.1 mg/dL (0.6-1.3); PHOSPHORUS 4.2 mg/dL (2.5-4.9); POTASSIUM 4.1 mmol/L (3.5-5.1)
[2024-01-13 08:00] VITALS: BP 108/80; TEMP 96.6; O2SAT 93
[2024-01-13 10:19] LABS: ANISOCYTOSIS 1+; BASOPHILS % (MANUAL) 0 % (0.0-2.0); EOSINOPHILS % (MANUAL) 2 % (0-4); LYMPHOCYTES % (MANUAL) 8 % (16-48); MONOCYTES % (MANUAL) 12 % (0-11.0); NEUTROPHILS % (MANUAL) 78 (42-76); OVALOCYTES 1+; PLATELET ESTIMATE ADEQUATE
[2024-01-13 12:00] VITALS: BP 124/79; TEMP 97.7; O2SAT 94
[2024-01-13] MEDS: DAKINS HALF STRENGTH (0.25%) 480 ML BOTTLE TOP SCH (12:16)
[2024-01-13 16:00] VITALS: BP 115/71; TEMP 97.7; O2SAT 94
[2024-01-13 20:00] VITALS: BP 108/68; TEMP 97.5; O2SAT 97
[2024-01-14] VITALS (10 sets, daily range): BP systolic 113–129; BP diastolic 70–82; TEMP 97.9–98.6; O2SAT 93–99
[2024-01-14] MEDS: PANTOPRAZOLE 40 MG TABLET.DR PO SCH (09:15)
[2024-01-14] MEDS: IPRATROPIUM NEB FS 0.5 MG/2.5 ML AMPUL.NEB NEB SCH (10:24)
[2024-01-14] MEDS: FLUTICASONE PROPIONATE 16 GM BOTTLE NS SCH (16:53)
[2024-01-14] MEDS: GUAIFENESIN LA 600 MG TABLET.SA PO SCH (22:45)
[2024-01-14] MEDS ORDERED: IV NS 0.9% 500 ML IV ONE (23:30)
[2024-01-15] VITALS (14 sets, daily range): BP systolic 121–151; BP diastolic 67–93; TEMP 98–98.6; O2SAT 92–97
[2024-01-16] VITALS (14 sets, daily range): BP systolic 112–139; BP diastolic 79–103; TEMP 97.2–98.3; O2SAT 93–98
[2024-01-16] MEDS ORDERED: BUME1TAB8 PO (10:49)
[2024-01-17] VITALS (15 sets, daily range): BP systolic 108–136; BP diastolic 48–95; TEMP 97.2–98.7; O2SAT 90–99
[2024-01-18] VITALS (13 sets, daily range): BP systolic 120–144; BP diastolic 67–98; TEMP 97.7–98.1; O2SAT 91–100
[2024-01-19] VITALS: BP 115/82; TEMP 98.1; O2SAT 100
[2024-01-19 01:10] VITALS: O2SAT 92
[2024-01-19 01:20] VITALS: O2SAT 95; O2SAT 96
[2024-01-19 04:00] VITALS: BP 120/78; TEMP 98; O2SAT 100
[2024-01-19 09:49] VITALS: BP 116/74
== END 2024-01-19 10:52 | disposition home health service (06) | DRG 194 ==
LOC: ER 17:05 → TELE1 20:40 → MEDSG1 01-17 15:43
PROVIDERS: ADMIT Nurse Practitioner Acute Care; ATTEND Internal Medicine
PROC: 0JBQ0ZZ Excision of Right Foot Subcutaneous Tissue and Fascia, Open Approach (ICD-10-PCS; principal; 2024-01-13)
DX: I11.0 Hypertensive heart disease with heart failure (principal); J96.12 Chronic respiratory failure with hypercapnia; E44.0 Moderate protein-calorie malnutrition; E88.09 Other disorders of plasma-protein metabolism, not elsewhere classified; E66.2 Morbid (severe) obesity with alveolar hypoventilation; L03.115 Cellulitis of right lower limb; I87.313 Chronic venous hypertension (idiopathic) with ulcer of bilateral lower extremity; E11.621 Type 2 diabetes mellitus with foot ulcer; I48.91 Unspecified atrial fibrillation; J96.11 Chronic respiratory failure with hypoxia; Z79.01 Long term (current) use of anticoagulants; L03.116 Cellulitis of left lower limb; L97.418 Non-pressure chronic ulcer of right heel and midfoot with other specified severity; I50.33 Acute on chronic diastolic (congestive) heart failure; E78.5 Hyperlipidemia, unspecified; R74.01 Elevation of levels of liver transaminase levels; Z68.44 Body mass index [BMI] 60.0-69.9, adult; L97.829 Non-pressure chronic ulcer of other part of left lower leg with unspecified severity; L97.819 Non-pressure chronic ulcer of other part of right lower leg with unspecified severity; I87.8 Other specified disorders of veins; Z91.199 Patient's noncompliance with other medical treatment and regimen due to unspecified reason; I89.0 Lymphedema, not elsewhere classified; R53.1 Weakness; Z20.822 Contact with and (suspected) exposure to COVID-19; Z88.1 Allergy status to other antibiotic agents
CPT/HCPCS: 36415; 71045-TC; 80048-TC; 80076-TC; 82550-TC; 82962-TC; 83735-TC; 83880; 84100-TC; 84484-TC; 85025-TC; 87081-TC; 94762-TC; 94799-TC; 97110-TC; 97530-TC; A4223; A6253; A6403; C9113; G0378; J1815; J2270; J3490; J7050; J7060

== ENCOUNTER 2024-02-02 15:50 | Inpatient (IN) | payer OTHER ==
[~2024-02-02] VITALS: Ht 170.2 cm; Wt 220.9 kg
[~2024-02-02 15:50] MED LIST changes: +BUME1TAB8 PO; -CLIN-27 PO; -FURO-144 PO
[2024-02-02] MEDS: CEFEPIME 1 GM in IV D5W 50 ML IV ONE (16:15)
[2024-02-02 17:12] LABS: BASOPHILS # (AUTO) 0.1 K/uL (0.0-0.2); BASOPHILS % (AUTO) 0.9 % (0.0-2.0); EOSINOPHILS # (AUTO) 0.1 K/uL (0.0-0.7); EOSINOPHILS % (AUTO) 1.2 % (0.0-6.0); HEMATOCRIT 39 % (39-51); LYMPHOCYTES # (AUTO) 0.3 K/uL (0.8-4.8); MEAN CORPUSCULAR HEMOGLOBIN 25 PG (26.0-33.0); MEAN CORPUSCULAR HGB CONC 31 g/dl (31.0-36.0); MEAN CORPUSCULAR VOLUME 81 fL (80-96); MONOCYTES % (AUTO) 11.6 % (2.0-12.0); NEUTROPHILS # (AUTO) 6.9 K/uL (1.8-8.9); NEUTROPHILS % (AUTO) 83.3 % (43.0-81.0); PLATELET COUNT (AUTO) 373 K/uL (150-450); RED BLOOD CELL COUNT(AUTO) 4.78 MIL/uL (4.5-6.0); RED CELL DISTRIBUTION WIDTH 17.8 % (11.5-15.0); WHITE BLOOD COUNT (AUTO) 8.3 K/uL (4.3-11.0)
[2024-02-02] MEDS ORDERED: BUME1TAB8 PO (17:24)
[2024-02-02] MEDS ORDERED: GUAI600T53 PO (17:24)
[2024-02-02] MEDS ORDERED: INSU100V7 SQ (17:24)
[2024-02-02 17:26] LABS: CALCIUM, SERUM 9.1 mg/dL (8.5-10.1); CARBON DIOXIDE 25 mmol/L (21-32); CHLORIDE 102 mmol/L (98-107); CREATININE 1.1 mg/dL (0.6-1.3); GLUCOSE 137 mg/dL (74-106); POTASSIUM 3.8 mmol/L (3.5-5.1); SODIUM SERUM 136 mmol/L (136-145); UREA NITROGEN, BLOOD 12 mg/dL (7-18)
[2024-02-02 17:36] LABS: LACTIC ACID 2.1 mmol/L (0.4-2.0)
[2024-02-02] MEDS ORDERED: FUROSEMIDE 40 MG/4 ML VIAL ONE (17:43)
[2024-02-02 17:46] LABS: ALANINE AMINOTRANSFERASE 16 U/L (12-78); ALBUMIN 3.2 g/dL (3.4-5.0); ALKALINE PHOSPHATASE 231 U/L (46-116); ASPARTATE AMINOTRANSFERASE 23 U/L (15-37); BILIRUBIN,DIRECT 0.7 mg/dL (0.0-0.2); BILIRUBIN,TOTAL 2.1 mg/dL (0.2-1.0); INR 1.26 (0.91-1.10); PARTIAL THROMBOPLASTIN TIME 30.5 SEC (24.3-34.3); PROTHROMBIN TIME 12.9 SECS (9.2-11.1); TOTAL PROTEIN, SERUM 8.8 g/dL (6.4-8.2)
[2024-02-02] MEDS: FUROSEMIDE 40 MG/4 ML VIAL IV ONE (17:50)
[2024-02-02 18:51] LABS: APPEARANCE,URINE Clear (CLEAR); BILIRUBIN,URINE SMALL (NEGATIVE); BLOOD, URINE Negative Ery/uL (NEGATIVE); COLOR,URINE YELLOW (YELLOW); KETONES,URINE Trace mg/dL (NEGATIVE); LEUKOCYTE ESTERASE ,URINE Negative (NEGATIVE); NITRITE, URINE Negative (NEGATIVE); PH,URINE 5.5 (5.0-8.0); PROTEIN,URINE 100 mg/dl (NEGATIVE); UGLUCOSE Negative (NEGATIVE); UROBILINOGEN,URINE 0.2 EU/dL (0.2)
[2024-02-02 19:23] LABS: ADD URINE CULTURE NO; BACTERIA,URINE Rare /HPF (None Seen); RBC,URINE 0-2 /HPF (0-2); WBC,URINE 0-2 /HPF (0-3)
[2024-02-02 19:24] LABS: SQUAMOUS EPITHELIAL CELL,UR Rare /HPF (None Seen)
[2024-02-02 19:28] LABS: CALCIUM OXALATE CRYSTALS,UR Few /HPF (None Seen)
[2024-02-02] MEDS ORDERED: MAG HYDROX/AL HYDROX/SIMETH 30 ML UDC PO PRN (20:30)
[2024-02-02] MEDS ORDERED: ONDANSETRON HCL/PF 4 MG/2 ML VIAL IVP PRN (20:30)
[2024-02-02] MEDS ORDERED: MAGNESIUM HYDROXIDE 30 ML UDC PO PRN (20:30)
[2024-02-02] MEDS ORDERED: CEFEPIME 1 GM in IV D5W 50 ML IV SCH (20:30)
[2024-02-02] MEDS ORDERED: ACETAMINOPHEN 325 MG TABLET PO PRN (20:30)
[2024-02-02] MEDS ORDERED: Z GUARD REMEDY 4 OZ OINT TP PRN (20:30)
[2024-02-03] VITALS: BP 130/78; TEMP 97.4; O2SAT 93
[2024-02-03] MEDS: METOPROLOL TARTRATE 50 MG TABLET PO SCH (00:39)
[2024-02-03 04:00] VITALS: BP 118/88; TEMP 97.7; O2SAT 92
[2024-02-03 07:23] LABS: BASOPHILS % (AUTO) 0.6 % (0.0-2.0); EOSINOPHILS # (AUTO) 0.1 K/uL (0.0-0.7); EOSINOPHILS % (AUTO) 1.4 % (0.0-6.0); HEMATOCRIT 40 % (39-51); HEMOGLOBIN 12.1 g/dL (13.5-17.5); LYMPHOCYTES # (AUTO) 0.3 K/uL (0.8-4.8); LYMPHOCYTES % (AUTO) 4.1 % (20.0-44.0); MEAN CORPUSCULAR HEMOGLOBIN 25 PG (26.0-33.0); MEAN CORPUSCULAR HGB CONC 31 g/dl (31.0-36.0); MEAN CORPUSCULAR VOLUME 82 fL (80-96); MONOCYTES % (AUTO) 14.7 % (2.0-12.0); NEUTROPHILS # (AUTO) 5.3 K/uL (1.8-8.9); NEUTROPHILS % (AUTO) 79.2 % (43.0-81.0); PLATELET COUNT (AUTO) 363 K/uL (150-450); RED BLOOD CELL COUNT(AUTO) 4.83 MIL/uL (4.5-6.0); RED CELL DISTRIBUTION WIDTH 17.9 % (11.5-15.0); WHITE BLOOD COUNT (AUTO) 6.7 K/uL (4.3-11.0)
[2024-02-03 07:47] LABS: CALCIUM, SERUM 8.9 mg/dL (8.5-10.1); CREATININE 1.1 mg/dL (0.6-1.3); MAGNESIUM 1.9 mg/dL (1.8-2.4); POTASSIUM 4.2 mmol/L (3.5-5.1)
[2024-02-03 07:51] LABS: THYROID STIMULATING HORMONE 2.486 uIU/mL (0.358-3.74)
[2024-02-03 08:00] VITALS: BP 116/80; TEMP 97.9; O2SAT 92
[2024-02-03] MEDS: FUROSEMIDE 40 MG/4 ML VIAL IV SCH (08:46)
[2024-02-03] MEDS: PANTOPRAZOLE 40 MG VIAL IV SCH (08:46)
[2024-02-03] MEDS: POTASSIUM CHLORIDE 20 MEQ TAB.PRT.SR PO SCH (08:46)
[2024-02-03] MEDS: CEFEPIME 2 GM in IV D5W 100 ML IV SCH (08:50)
[2024-02-03] MEDS: ENOXAPARIN SODIUM 40 MG/0.4 ML DISP.SYRIN SQ SCH (09:30)
[2024-02-03] MEDS: APIXABAN 5 MG TABLET PO SCH (11:52)
[2024-02-03 12:00] VITALS: BP 122/84; TEMP 98.4; O2SAT 92
[2024-02-03] MEDS ORDERED: DEXTROSE 50%-WATER 50 ML DISP.SYRIN IV PRN (13:00)
[2024-02-03] MEDS: GABAPENTIN 400 MG CAPSULE PO SCH (13:22)
[2024-02-03 13:43] LABS: ABG BASE EXCESS 0.3 mmol/L; ABG OXYGEN SATURATION 95.1 % (92.0-98.5); ABG PCO2 59.3 mmHg (35.0-45.0); ABG PH 7.293 (7.350-7.450); ABG PO2 82.8 mmHg (75.0-100.0); ABG TOTAL HEMOGLOBIN 13.2 G/dL (13.5-18.0); AaDO2 105.1 mmHg; COHb 2.2 % (0.5-1.5); MetHb 0.2 % (0.0-1.5); O2Hb 92.8 % (94.0-97.0); SITE, ABG Right Radial; VENT MODE, BG 4L NC
[2024-02-03 16:00] VITALS: BP 120/80; TEMP 98.1; O2SAT 94
[2024-02-03] MEDS: BLOOD SUGAR DIAGNOSTIC 1 EACH STRIP VI SCH (17:36)
[2024-02-03] MEDS ORDERED: OXYMETAZOLINE HCL PRN (19:30)
[2024-02-03] MEDS ORDERED: [UNRECOGNIZED DRUG - OTHER] PRN (19:30)
[2024-02-03 20:00] VITALS: BP 121/84; TEMP 98; O2SAT 93
[2024-02-03] MEDS ORDERED: CEFEPIME 1 GM in IV D5W 50 ML IV SCH (21:00)
[2024-02-03] MEDS: MORPHINE SULFATE INJ 2 MG/ML DISP.SYRIN IV PRN (21:43)
[2024-02-03] MEDS: *INSULIN REGULAR(HUMULIN R)HUM 100 UNIT/ML VIAL SQ PRN (21:55)
[2024-02-04] VITALS: BP 106/83; TEMP 98; O2SAT 96
[2024-02-04 04:00] VITALS: BP 114/73; TEMP 98; O2SAT 96
[2024-02-04 08:00] VITALS: BP 112/80; TEMP 98.1; O2SAT 94
[2024-02-04] MEDS: DAKINS HALF STRENGTH (0.25%) 480 ML BOTTLE TOP SCH (08:18)
[2024-02-04] MEDS: POTASSIUM CHLORIDE 20 MEQ TAB.PRT.SR PO SCH (09:30)
[2024-02-04] MEDS: FUROSEMIDE 100 MG/10 ML VIAL IV SCH (09:30)
[2024-02-04 10:28] LABS: BASOPHILS % (AUTO) 0.7 % (0.0-2.0); EOSINOPHILS # (AUTO) 0.2 K/uL (0.0-0.7); EOSINOPHILS % (AUTO) 3.2 % (0.0-6.0); HEMATOCRIT 39 % (39-51); HEMOGLOBIN 11.8 g/dL (13.5-17.5); LYMPHOCYTES # (AUTO) 0.3 K/uL (0.8-4.8); LYMPHOCYTES % (AUTO) 4.1 % (20.0-44.0); MEAN CORPUSCULAR HEMOGLOBIN 25 PG (26.0-33.0); MEAN CORPUSCULAR HGB CONC 31 g/dl (31.0-36.0); MEAN CORPUSCULAR VOLUME 83 fL (80-96); MONOCYTES # (AUTO) 0.8 K/uL (0.1-1.30); MONOCYTES % (AUTO) 11.6 % (2.0-12.0); NEUTROPHILS # (AUTO) 5.4 K/uL (1.8-8.9); NEUTROPHILS % (AUTO) 80.4 % (43.0-81.0); PLATELET COUNT (AUTO) 323 K/uL (150-450); RED BLOOD CELL COUNT(AUTO) 4.65 MIL/uL (4.5-6.0); WHITE BLOOD COUNT (AUTO) 6.7 K/uL (4.3-11.0)
[2024-02-04 10:35] LABS: CALCIUM, SERUM 8.6 mg/dL (8.5-10.1); CREATININE 1.1 mg/dL (0.6-1.3)
[2024-02-04] MEDS: INSULIN REGULAR, HUMAN 100 UNIT/ML 3 ML VIAL SQ PRN (11:36)
[2024-02-04 12:00] VITALS: BP 106/84; TEMP 97.5; O2SAT 97
[2024-02-04 16:00] VITALS: BP 108/76; TEMP 97.5; O2SAT 97
[2024-02-04] MEDS: CLOTRIMAZOLE 1% 15 GM TUBE TP SCH (16:03)
[2024-02-04] MEDS: METOLAZONE 2.5 MG TABLET PO SCH (16:40)
[2024-02-04 20:00] VITALS: BP 112/74; TEMP 97.4; O2SAT 93
[2024-02-05] VITALS: BP 110/71; TEMP 97.4; O2SAT 95
[2024-02-05 04:00] VITALS: BP 133/83; TEMP 97.5; O2SAT 95
[2024-02-05 07:06] LABS: BASOPHILS % (AUTO) 0.7 % (0.0-2.0); EOSINOPHILS # (AUTO) 0.3 K/uL (0.0-0.7); EOSINOPHILS % (AUTO) 4.2 % (0.0-6.0); HEMATOCRIT 39 % (39-51); HEMOGLOBIN 12.2 g/dL (13.5-17.5); LYMPHOCYTES # (AUTO) 0.3 K/uL (0.8-4.8); LYMPHOCYTES % (AUTO) 5.3 % (20.0-44.0); MEAN CORPUSCULAR HEMOGLOBIN 25 PG (26.0-33.0); MEAN CORPUSCULAR HGB CONC 32 g/dl (31.0-36.0); MEAN CORPUSCULAR VOLUME 80 fL (80-96); MONOCYTES # (AUTO) 0.8 K/uL (0.1-1.30); MONOCYTES % (AUTO) 12.6 % (2.0-12.0); NEUTROPHILS # (AUTO) 4.7 K/uL (1.8-8.9); NEUTROPHILS % (AUTO) 77.2 % (43.0-81.0); PLATELET COUNT (AUTO) 333 K/uL (150-450); RED BLOOD CELL COUNT(AUTO) 4.82 MIL/uL (4.5-6.0); RED CELL DISTRIBUTION WIDTH 17.9 % (11.5-15.0); WHITE BLOOD COUNT (AUTO) 6.1 K/uL (4.3-11.0)
[2024-02-05 07:55] LABS: ALBUMIN 2.2 g/dL (3.4-5.0); BILIRUBIN,TOTAL 1.1 mg/dL (0.2-1.0); CALCIUM, SERUM 8.6 mg/dL (8.5-10.1); MAGNESIUM 1.6 mg/dL (1.8-2.4); POTASSIUM 3.8 mmol/L (3.5-5.1); TOTAL PROTEIN, SERUM 7.3 g/dL (6.4-8.2)
[2024-02-05 08:00] VITALS: BP 112/74; TEMP 97.4; O2SAT 93
[2024-02-05] MEDS: FUROSEMIDE 100 MG/10 ML VIAL IV SCH (11:08)
[2024-02-05] MEDS: MAGNESIUM OXIDE 400 MG TABLET PO ONE (11:12)
[2024-02-05] MEDS: PANTOPRAZOLE 40 MG TABLET.DR PO SCH (11:12)
[2024-02-05] MEDS: POTASSIUM CHLORIDE 20 MEQ TAB.PRT.SR PO SCH (15:10)
[2024-02-05 16:00] VITALS: BP 110/81; TEMP 97.5; O2SAT 94
[2024-02-05 20:00] VITALS: BP 132/79; TEMP 97.6; O2SAT 91
[2024-02-06 04:00] VITALS: BP 116/92; TEMP 97.5; O2SAT 95
[2024-02-06 06:50] LABS: BASOPHILS # (AUTO) 0.1 K/uL (0.0-0.2); EOSINOPHILS # (AUTO) 0.3 K/uL (0.0-0.7); EOSINOPHILS % (AUTO) 4.4 % (0.0-6.0); HEMATOCRIT 40 % (39-51); HEMOGLOBIN 12.8 g/dL (13.5-17.5); LYMPHOCYTES # (AUTO) 0.3 K/uL (0.8-4.8); LYMPHOCYTES % (AUTO) 4.7 % (20.0-44.0); MEAN CORPUSCULAR HEMOGLOBIN 25 PG (26.0-33.0); MEAN CORPUSCULAR HGB CONC 32 g/dl (31.0-36.0); MEAN CORPUSCULAR VOLUME 80 fL (80-96); MONOCYTES # (AUTO) 0.8 K/uL (0.1-1.30); MONOCYTES % (AUTO) 11.4 % (2.0-12.0); NEUTROPHILS # (AUTO) 5.3 K/uL (1.8-8.9); NEUTROPHILS % (AUTO) 78.5 % (43.0-81.0); PLATELET COUNT (AUTO) 350 K/uL (150-450); RED BLOOD CELL COUNT(AUTO) 5.04 MIL/uL (4.5-6.0); RED CELL DISTRIBUTION WIDTH 18.1 % (11.5-15.0); WHITE BLOOD COUNT (AUTO) 6.8 K/uL (4.3-11.0)
[2024-02-06 07:30] LABS: ALBUMIN 2.4 g/dL (3.4-5.0); CALCIUM, SERUM 9.1 mg/dL (8.5-10.1); MAGNESIUM 1.8 mg/dL (1.8-2.4); PHOSPHORUS 2.9 mg/dL (2.5-4.9); POTASSIUM 3.9 mmol/L (3.5-5.1); TOTAL PROTEIN, SERUM 7.7 g/dL (6.4-8.2)
[2024-02-06 08:00] VITALS: BP 119/99; TEMP 97.9; O2SAT 94
[2024-02-06 09:29] LABS: BASOPHILS # (AUTO) 0.1 K/uL (0.0-0.2); BASOPHILS % (AUTO) 1.1 % (0.0-2.0); EOSINOPHILS # (AUTO) 0.3 K/uL (0.0-0.7); EOSINOPHILS % (AUTO) 4.5 % (0.0-6.0); HEMATOCRIT 42 % (39-51); HEMOGLOBIN 13.3 g/dL (13.5-17.5); LYMPHOCYTES # (AUTO) 0.3 K/uL (0.8-4.8); LYMPHOCYTES % (AUTO) 4.5 % (20.0-44.0); MEAN CORPUSCULAR HEMOGLOBIN 25 PG (26.0-33.0); MEAN CORPUSCULAR HGB CONC 32 g/dl (31.0-36.0); MEAN CORPUSCULAR VOLUME 80 fL (80-96); MONOCYTES # (AUTO) 0.8 K/uL (0.1-1.30); MONOCYTES % (AUTO) 11.8 % (2.0-12.0); NEUTROPHILS # (AUTO) 5.1 K/uL (1.8-8.9); NEUTROPHILS % (AUTO) 78.1 % (43.0-81.0); PLATELET COUNT (AUTO) 355 K/uL (150-450); RED BLOOD CELL COUNT(AUTO) 5.26 MIL/uL (4.5-6.0); RED CELL DISTRIBUTION WIDTH 18.1 % (11.5-15.0); WHITE BLOOD COUNT (AUTO) 6.6 K/uL (4.3-11.0)
[2024-02-06 09:39] LABS: CALCIUM, SERUM 8.9 mg/dL (8.5-10.1); POTASSIUM 3.9 mmol/L (3.5-5.1)
[2024-02-06] MEDS ORDERED: APIX5TAB PO (11:39)
[2024-02-06] MEDS ORDERED: PANT40TA49 PO (11:39)
[2024-02-06 16:00] VITALS: BP 115/97; TEMP 98.8; O2SAT 87
[2024-02-06 17:33] VITALS: BP 115/97
== END 2024-02-06 19:10 | disposition home health service (06) | DRG 194 ==
LOC: ER 15:56 → TELE1 20:50 → TELE-TD 02-04 00:44 → TELE1 02-04 07:48 → MEDSG1 02-05 10:05
PROVIDERS: ADMIT Nurse Practitioner Acute Care; ATTEND Internal Medicine
PROC: 5A09357 Assistance with Respiratory Ventilation, Less than 24 Consecutive Hours, Continuous Positive Airway Pressure (ICD-10-PCS; principal; 2024-02-04)
DX: I11.0 Hypertensive heart disease with heart failure (principal); J96.21 Acute and chronic respiratory failure with hypoxia; E44.0 Moderate protein-calorie malnutrition; D68.69 Other thrombophilia; E87.3 Alkalosis; E88.09 Other disorders of plasma-protein metabolism, not elsewhere classified; E66.2 Morbid (severe) obesity with alveolar hypoventilation; I27.20 Pulmonary hypertension, unspecified; I48.20 Chronic atrial fibrillation, unspecified; J96.22 Acute and chronic respiratory failure with hypercapnia; I50.33 Acute on chronic diastolic (congestive) heart failure; I16.0 Hypertensive urgency; Z74.09 Other reduced mobility; E11.621 Type 2 diabetes mellitus with foot ulcer; E11.65 Type 2 diabetes mellitus with hyperglycemia; E78.5 Hyperlipidemia, unspecified; Z79.4 Long term (current) use of insulin; Z79.01 Long term (current) use of anticoagulants; I87.313 Chronic venous hypertension (idiopathic) with ulcer of bilateral lower extremity; L97.829 Non-pressure chronic ulcer of other part of left lower leg with unspecified severity; L97.819 Non-pressure chronic ulcer of other part of right lower leg with unspecified severity; L97.419 Non-pressure chronic ulcer of right heel and midfoot with unspecified severity; R53.1 Weakness; R74.01 Elevation of levels of liver transaminase levels; Z68.45 Body mass index [BMI] 70 or greater, adult; I89.0 Lymphedema, not elsewhere classified
CPT/HCPCS: 36415; 36600; 71045-TC; 80048-TC; 80053-TC; 80061-TC; 80076-TC; 81001; 82962-TC; 83605-TC; 83735-TC; 83880; 84100-TC; 84443-TC; 84484-TC; 85025-TC; 85730-TC; 87040-TC; 87086-TC; 94660; 94799-TC; 97110-TC; 97116-TC; 97530-TC; 97535-TC; A4223; A6253; A6403; C9113; G0378; J0692; J1650; J1815; J1940; J2270; J7050; J7060

== ENCOUNTER 2024-02-20 21:33 | Inpatient (IN) | payer OTHER ==
[~2024-02-20] VITALS: Ht 170.2 cm; Wt 214.5 kg
[~2024-02-20 21:33] MED LIST changes: +APIX5TAB PO; -DICL100G26 TP; -DILT240C88 PO; +GUAI600T53 PO; -HYDR-4077 PO; +INSU100V7 SQ; +PANT40TA49 PO; -RIVA10TA PO
[2024-02-20] MEDS ORDERED: hydrALAZINE HCL IV 20 MG VIAL IV PRN (23:00)
[2024-02-20] MEDS ORDERED: ALBUTEROL FS 2.5 MG/0.5 ML VIAL.NEB NEB PRN (23:00)
[2024-02-20] MEDS ORDERED: ONDANSETRON HCL/PF 4 MG/2 ML VIAL IVP PRN (23:00)
[2024-02-20] MEDS ORDERED: DEXTROSE 50%-WATER 50 ML DISP.SYRIN IV PRN (23:00)
[2024-02-20 23:01] LABS: BASOPHILS # (AUTO) 0.1 K/uL (0.0-0.2); BASOPHILS % (AUTO) 0.7 % (0.0-2.0); EOSINOPHILS # (AUTO) 0.1 K/uL (0.0-0.7); EOSINOPHILS % (AUTO) 1.2 % (0.0-6.0); HEMATOCRIT 40 % (39-51); HEMOGLOBIN 12.6 g/dL (13.5-17.5); LYMPHOCYTES # (AUTO) 0.4 K/uL (0.8-4.8); LYMPHOCYTES % (AUTO) 4.8 % (20.0-44.0); MEAN CORPUSCULAR HEMOGLOBIN 26 PG (26.0-33.0); MEAN CORPUSCULAR HGB CONC 32 g/dl (31.0-36.0); MEAN CORPUSCULAR VOLUME 81 fL (80-96); MONOCYTES % (AUTO) 12.9 % (2.0-12.0); NEUTROPHILS # (AUTO) 6.4 K/uL (1.8-8.9); NEUTROPHILS % (AUTO) 80.4 % (43.0-81.0); PLATELET COUNT (AUTO) 361 K/uL (150-450); RED BLOOD CELL COUNT(AUTO) 4.94 MIL/uL (4.5-6.0); RED CELL DISTRIBUTION WIDTH 18.6 % (11.5-15.0); WHITE BLOOD COUNT (AUTO) 7.9 K/uL (4.3-11.0)
[2024-02-20] MEDS: CEFAZOLIN 1 GM in IV D5W 50 ML IV ONE (23:04)
[2024-02-20 23:11] LABS: CALCIUM, SERUM 8.9 mg/dL (8.5-10.1); CREATININE 1.7 mg/dL (0.6-1.3); POTASSIUM 4.2 mmol/L (3.5-5.1)
[2024-02-20 23:16] LABS: ALBUMIN 2.8 g/dL (3.4-5.0); BILIRUBIN,DIRECT 0.5 mg/dL (0.0-0.2); BILIRUBIN,TOTAL 1.3 mg/dL (0.2-1.0); TOTAL PROTEIN, SERUM 8.2 g/dL (6.4-8.2)
[2024-02-20 23:19] LABS: LACTIC ACID 1.7 mmol/L (0.4-2.0)
[2024-02-20 23:22] LABS: INR 1.3 (0.91-1.10); PARTIAL THROMBOPLASTIN TIME 31.6 SEC (24.3-34.3); PROTHROMBIN TIME 13.5 SECS (9.2-11.1)
[2024-02-21] VITALS (12 sets, daily range): BP systolic 114–130; BP diastolic 73–99; TEMP 97.3–99; O2SAT 94–99
[2024-02-21] MEDS: IPRATROPIUM/ALBUTEROL INHALER IH SCH
[2024-02-21 00:10] LABS: APPEARANCE,URINE SLIGHTLY CLOUDY (CLEAR); BILIRUBIN,URINE 1+ (NEGATIVE); BLOOD, URINE NEGATIVE Ery/uL (NEGATIVE); COLOR,URINE YELLOW (YELLOW); KETONES,URINE TRACE mg/dL (NEGATIVE); LEUKOCYTE ESTERASE ,URINE NEGATIVE (NEGATIVE); NITRITE, URINE NEGATIVE (NEGATIVE); PH,URINE 5.5 (5.0-8.0); PROTEIN,URINE 2+ mg/dl (NEGATIVE); UGLUCOSE NEGATIVE (NEGATIVE); UROBILINOGEN,URINE 0.2 EU/dL (0.2)
[2024-02-21 00:13] LABS: ADD URINE CULTURE NO; BACTERIA,URINE Rare /HPF (None Seen); RBC,URINE 0-2 /HPF (0-2); SQUAMOUS EPITHELIAL CELL,UR Few /HPF (None Seen); WBC,URINE 0-2 /HPF (0-3)
[2024-02-21] MEDS ORDERED: *INSULIN REGULAR(HUMULIN R)HUM 100 UNIT/ML VIAL SQ PRN (01:30)
[2024-02-21 02:48] LABS: ABG BASE EXCESS -3.3 mmol/L; ABG OXYGEN SATURATION 93.5 % (92.0-98.5); ABG PCO2 42.2 mmHg (35.0-45.0); ABG PH 7.341 (7.350-7.450); ABG PO2 75.5 mmHg (75.0-100.0); ABG TOTAL HEMOGLOBIN 13.7 G/dL (13.5-18.0); AaDO2 23.7 mmHg; COHb 1.3 % (0.5-1.5); MetHb 0.1 % (0.0-1.5); O2Hb 92.2 % (94.0-97.0); SITE, ABG Right Radial; VENT MODE, BG Room Air
[2024-02-21] MEDS: METOPROLOL TARTRATE 50 MG TABLET PO SCH (04:48)
[2024-02-21] MEDS ORDERED: CEFEPIME 1 GM VIAL ONE (05:20)
[2024-02-21] MEDS ORDERED: LINEZOLID RTU BAG 300 ML IV ONE (05:20)
[2024-02-21] MEDS: CEFEPIME 2 GM in IV D5W 100 ML IV ONE (05:36)
[2024-02-21] MEDS: LINEZOLID RTU BAG 600 MG in PREMIX 1 EA IV SCH ×2 (06:42→17:53)
[2024-02-21] MEDS ORDERED: FLUT16SP16 BNOSTRILS (07:48)
[2024-02-21] MEDS: BLOOD SUGAR DIAGNOSTIC 1 EACH STRIP VI SCH (07:49)
[2024-02-21] MEDS: PANTOPRAZOLE 40 MG TABLET.DR PO SCH (08:20)
[2024-02-21] MEDS: BUMETANIDE (1 MG) 1 MG TABLET PO SCH (08:20)
[2024-02-21] MEDS: GABAPENTIN 400 MG CAPSULE PO SCH (08:20)
[2024-02-21] MEDS: APIXABAN 5 MG TABLET PO SCH (08:21)
[2024-02-21 08:23] LABS: BASOPHILS % (AUTO) 0.6 % (0.0-2.0); EOSINOPHILS # (AUTO) 0.1 K/uL (0.0-0.7); HEMATOCRIT 40 % (39-51); HEMOGLOBIN 12.3 g/dL (13.5-17.5); LYMPHOCYTES # (AUTO) 0.3 K/uL (0.8-4.8); LYMPHOCYTES % (AUTO) 3.8 % (20.0-44.0); MEAN CORPUSCULAR HEMOGLOBIN 25 PG (26.0-33.0); MEAN CORPUSCULAR HGB CONC 31 g/dl (31.0-36.0); MEAN CORPUSCULAR VOLUME 81 fL (80-96); MONOCYTES # (AUTO) 0.8 K/uL (0.1-1.30); MONOCYTES % (AUTO) 12.2 % (2.0-12.0); NEUTROPHILS # (AUTO) 5.5 K/uL (1.8-8.9); NEUTROPHILS % (AUTO) 82.4 % (43.0-81.0); PLATELET COUNT (AUTO) 384 K/uL (150-450); RED BLOOD CELL COUNT(AUTO) 4.97 MIL/uL (4.5-6.0); RED CELL DISTRIBUTION WIDTH 18.8 % (11.5-15.0); WHITE BLOOD COUNT (AUTO) 6.7 K/uL (4.3-11.0)
[2024-02-21 09:05] LABS: ALBUMIN 2.6 g/dL (3.4-5.0); BILIRUBIN,TOTAL 1.3 mg/dL (0.2-1.0); CALCIUM, SERUM 8.8 mg/dL (8.5-10.1); CREATININE 1.5 mg/dL (0.6-1.3); POTASSIUM 4.5 mmol/L (3.5-5.1); TOTAL PROTEIN, SERUM 7.8 g/dL (6.4-8.2)
[2024-02-21 09:12] LABS: MAGNESIUM 1.7 mg/dL (1.8-2.4); PHOSPHORUS 4.8 mg/dL (2.5-4.9)
[2024-02-21] MEDS: INSULIN REGULAR, HUMAN 100 UNIT/ML 3 ML VIAL SQ PRN (11:54)
[2024-02-21] MEDS: CEFEPIME 2 GM in IV D5W 100 ML IV SCH (12:02)
[2024-02-21] MEDS: ALBUTEROL FS 2.5 MG/3 ML VIAL.NEB NEB SCH (14:46)
[2024-02-21] MEDS: IPRATROPIUM NEB FS 0.5 MG/2.5 ML AMPUL.NEB NEB SCH (14:46)
[2024-02-21] MEDS ORDERED: OLANZAPINE 10 MG VIAL IM ONE (19:09)
[2024-02-21] MEDS: MORPHINE SULFATE INJ 2 MG/ML DISP.SYRIN IV PRN (19:35)
[2024-02-21] MEDS: ACETAMINOPHEN 325 MG TABLET PO PRN (20:59)
[2024-02-21] MEDS: *INSULIN REGULAR(HUMULIN R)HUM 100 UNIT/ML VIAL SQ PRN (21:44)
[2024-02-22] VITALS (15 sets, daily range): BP systolic 107–134; BP diastolic 68–98; TEMP 97.5–98.8; O2SAT 92–100
[2024-02-22 07:09] LABS: BASOPHILS # (AUTO) 0.1 K/uL (0.0-0.2); BASOPHILS % (AUTO) 1.1 % (0.0-2.0); EOSINOPHILS # (AUTO) 0.3 K/uL (0.0-0.7); EOSINOPHILS % (AUTO) 4.2 % (0.0-6.0); HEMATOCRIT 41 % (39-51); HEMOGLOBIN 12.5 g/dL (13.5-17.5); LYMPHOCYTES # (AUTO) 0.3 K/uL (0.8-4.8); LYMPHOCYTES % (AUTO) 4.3 % (20.0-44.0); MEAN CORPUSCULAR HEMOGLOBIN 25 PG (26.0-33.0); MEAN CORPUSCULAR HGB CONC 30 g/dl (31.0-36.0); MEAN CORPUSCULAR VOLUME 82 fL (80-96); MONOCYTES # (AUTO) 0.8 K/uL (0.1-1.30); MONOCYTES % (AUTO) 12.4 % (2.0-12.0); PLATELET COUNT (AUTO) 351 K/uL (150-450); RED BLOOD CELL COUNT(AUTO) 5.01 MIL/uL (4.5-6.0); WHITE BLOOD COUNT (AUTO) 6.5 K/uL (4.3-11.0)
[2024-02-22 08:23] LABS: ALBUMIN 2.6 g/dL (3.4-5.0); CALCIUM, SERUM 8.7 mg/dL (8.5-10.1); CREATININE 1.3 mg/dL (0.6-1.3); MAGNESIUM 1.8 mg/dL (1.8-2.4); PHOSPHORUS 4.1 mg/dL (2.5-4.9); POTASSIUM 4.8 mmol/L (3.5-5.1); TOTAL PROTEIN, SERUM 8.3 g/dL (6.4-8.2)
[2024-02-22] MEDS: LINEZOLID 600 MG TABLET PO SCH (17:30)
[2024-02-23] VITALS (11 sets, daily range): BP systolic 118–134; BP diastolic 82–91; TEMP 97.4–98.1; O2SAT 90–100
[2024-02-23] MEDS: CLOTRIMAZOLE 1% 15 GM TUBE TP SCH (08:47)
[2024-02-23] MEDS: Z GUARD REMEDY 4 OZ OINT TP PRN (08:47)
[2024-02-23] MEDS: Z GUARD REMEDY 4 OZ OINT TP SCH (08:48)
[2024-02-23] MEDS: DAKINS HALF STRENGTH (0.25%) 480 ML BOTTLE TOP SCH (09:55)
[2024-02-23] MEDS ORDERED: CEPH250S PO ×2 (15:20→15:24)
[2024-03-09] MEDS ORDERED: DOXY-326 PO (12:10)
== END 2024-02-23 16:20 | disposition home health service (06) | DRG 383 ==
LOC: ER 21:44 → TELE1 02-21 00:44 → MEDSG1 02-21 08:42
PROVIDERS: ADMIT Internal Medicine
DX: L03.116 Cellulitis of left lower limb (principal); E44.0 Moderate protein-calorie malnutrition; E66.2 Morbid (severe) obesity with alveolar hypoventilation; E87.1 Hypo-osmolality and hyponatremia; E11.22 Type 2 diabetes mellitus with diabetic chronic kidney disease; N17.9 Acute kidney failure, unspecified; I13.0 Hypertensive heart and chronic kidney disease with heart failure and stage 1 through stage 4 chronic kidney disease, or unspecified chronic kidney disease; I50.32 Chronic diastolic (congestive) heart failure; E88.09 Other disorders of plasma-protein metabolism, not elsewhere classified; E11.40 Type 2 diabetes mellitus with diabetic neuropathy, unspecified; I48.20 Chronic atrial fibrillation, unspecified; D64.9 Anemia, unspecified; Z68.45 Body mass index [BMI] 70 or greater, adult; L03.115 Cellulitis of right lower limb; E11.65 Type 2 diabetes mellitus with hyperglycemia; E78.5 Hyperlipidemia, unspecified; I16.0 Hypertensive urgency; I89.0 Lymphedema, not elsewhere classified; J98.11 Atelectasis; M89.8X9 Other specified disorders of bone, unspecified site; Z79.4 Long term (current) use of insulin; Z87.891 Personal history of nicotine dependence; I48.91 Unspecified atrial fibrillation; S81.802A Unspecified open wound, left lower leg, initial encounter; S81.801A Unspecified open wound, right lower leg, initial encounter; X58.XXXA Exposure to other specified factors, initial encounter; Y93.9 Activity, unspecified; Y92.009 Unspecified place in unspecified non-institutional (private) residence as the place of occurrence of the external cause; Z74.09 Other reduced mobility; Z79.01 Long term (current) use of anticoagulants; N18.9 Chronic kidney disease, unspecified; I87.313 Chronic venous hypertension (idiopathic) with ulcer of bilateral lower extremity; L97.829 Non-pressure chronic ulcer of other part of left lower leg with unspecified severity; L97.819 Non-pressure chronic ulcer of other part of right lower leg with unspecified severity; E11.621 Type 2 diabetes mellitus with foot ulcer; L97.419 Non-pressure chronic ulcer of right heel and midfoot with unspecified severity; I48.0 Paroxysmal atrial fibrillation; Z91.199 Patient's noncompliance with other medical treatment and regimen due to unspecified reason
CPT/HCPCS: 36415; 36600; 71045-TC; 80048-TC; 80053-TC; 80076-TC; 81001; 82803-TC; 82962-TC; 83605-TC; 83690-TC; 83735-TC; 84100-TC; 85025-TC; 85730-TC; 87040-TC; 93970-TC; 94761-TC; 94799-TC; A4216; A4223; A6253; A6403; G0378; J0690; J0692; J1815; J2020; J2270; J3490; J7030; J7040; J7060

== ENCOUNTER 2024-03-03 12:37 | Inpatient (IN) | payer OTHER ==
[~2024-03-03] VITALS: Ht 200.7 cm; Wt 188.5 kg
[~2024-03-03 12:37] MED LIST changes: +CEPH250S PO; +FLUT16SP16 BNOSTRILS
[2024-03-03] MEDS ORDERED: PIPERACI/TAZO 3.375GM/D5W 50ML PB IV ONE (13:20)
[2024-03-03 13:23] LABS: BASOPHILS # (AUTO) 0.1 K/uL (0.0-0.2); BASOPHILS % (AUTO) 0.8 % (0.0-2.0); EOSINOPHILS # (AUTO) 0.1 K/uL (0.0-0.7); EOSINOPHILS % (AUTO) 0.8 % (0.0-6.0); HEMOGLOBIN 12.7 g/dL (13.5-17.5); LYMPHOCYTES # (AUTO) 0.4 K/uL (0.8-4.8); MEAN CORPUSCULAR HEMOGLOBIN 24 PG (26.0-33.0); NEUTROPHILS # (AUTO) 6.1 K/uL (1.8-8.9); RED BLOOD CELL COUNT(AUTO) 5.24 MIL/uL (4.5-6.0); RED CELL DISTRIBUTION WIDTH 19.1 % (11.5-15.0); WHITE BLOOD COUNT (AUTO) 7.6 K/uL (4.3-11.0)
[2024-03-03] MEDS ORDERED: PANT40TA2 PO (13:25)
[2024-03-03] MEDS ORDERED: APIX5TAB PO (13:25)
[2024-03-03] MEDS ORDERED: CEPH500C2 PO (13:26)
[2024-03-03] MEDS: PIPERACILLIN /TAZOBACTAM 3.375 G in IV D5W 50 ML IV ONE (13:30)
[2024-03-03 13:31] LABS: HEMATOCRIT 41 % (39-51); LYMPHOCYTES % (AUTO) 4.7 % (20.0-44.0); MEAN CORPUSCULAR HGB CONC 31 g/dl (31.0-36.0); MEAN CORPUSCULAR VOLUME 79 fL (80-96); MONOCYTES % (AUTO) 13.5 % (2.0-12.0); NEUTROPHILS % (AUTO) 80.2 % (43.0-81.0); PLATELET COUNT (AUTO) 335 K/uL (150-450)
[2024-03-03 13:44] LABS: INR 1.31 (0.91-1.10); PARTIAL THROMBOPLASTIN TIME 29.6 SEC (24.3-34.3); PROTHROMBIN TIME 13.3 SECS (9.2-11.1)
[2024-03-03 13:46] LABS: CALCIUM, SERUM 8.9 mg/dL (8.5-10.1); CARBON DIOXIDE 30 mmol/L (21-32); CHLORIDE 102 mmol/L (98-107); CREATININE 1.3 mg/dL (0.6-1.3); GLUCOSE 120 mg/dL (74-106); POTASSIUM 4.1 mmol/L (3.5-5.1); SODIUM SERUM 137 mmol/L (136-145); UREA NITROGEN, BLOOD 17 mg/dL (7-18)
[2024-03-03 14:03] LABS: ALANINE AMINOTRANSFERASE 21 U/L (12-78); ALBUMIN 3.1 g/dL (3.4-5.0); ALKALINE PHOSPHATASE 236 U/L (46-116); ASPARTATE AMINOTRANSFERASE 25 U/L (15-37); BILIRUBIN,DIRECT 0.6 mg/dL (0.0-0.2); BILIRUBIN,TOTAL 2.5 mg/dL (0.2-1.0); NT-PRO BNP 2762 pg/mL (0-125); TOTAL PROTEIN, SERUM 8.6 g/dL (6.4-8.2)
[2024-03-03 14:10] LABS: LACTIC ACID 2.2 mmol/L (0.4-2.0)
[2024-03-03] MEDS ORDERED: MORPHINE SULFATE INJ 2 MG/ML DISP.SYRIN ONE (14:23)
[2024-03-03] MEDS: MORPHINE SULFATE INJ 2 MG/ML DISP.SYRIN IV ONE (14:26)
[2024-03-03 15:22] LABS: LYMPHOCYTES % (MANUAL) 5 % (16-48); MONOCYTES % (MANUAL) 15 % (0-11.0); NEUTROPHILS % (MANUAL) 80 (42-76)
[2024-03-03 15:23] LABS: ANISOCYTOSIS 1+; PLATELET ESTIMATE ADEQUATE
[2024-03-03 15:24] LABS: TARGET CELLS 1+
[2024-03-03] MEDS ORDERED: MAG HYDROX/AL HYDROX/SIMETH 30 ML UDC PO PRN (15:30)
[2024-03-03] MEDS ORDERED: Z GUARD REMEDY 4 OZ OINT TP PRN (15:30)
[2024-03-03] MEDS ORDERED: ONDANSETRON HCL/PF 4 MG/2 ML VIAL IVP PRN (15:30)
[2024-03-03] MEDS ORDERED: ZOLPIDEM TARTRATE 5 MG TABLET PO PRN (15:30)
[2024-03-03] MEDS ORDERED: DEXTROSE 50%-WATER 50 ML DISP.SYRIN IV PRN (15:30)
[2024-03-03] MEDS ORDERED: MAGNESIUM HYDROXIDE 30 ML UDC PO PRN (15:30)
[2024-03-03] MEDS: VANCOMYCIN HCL 1.25 GM in IV D5W 250 ML IV SCH (16:00)
[2024-03-03] MEDS: ENOXAPARIN SODIUM 40 MG/0.4 ML DISP.SYRIN SQ SCH (16:00)
[2024-03-03] MEDS ORDERED: ENOXAPARIN SODIUM 40 MG/0.4 ML DISP.SYRIN SQ ONE (16:59)
[2024-03-03] MEDS ORDERED: HYDROCODONE/APAP 5/325MG TABLET ONE (17:06)
[2024-03-03] MEDS: HYDROCODONE/APAP 5/325MG TABLET PO PRN (17:11)
[2024-03-03] MEDS: BLOOD SUGAR DIAGNOSTIC 1 EACH STRIP IN SCH (17:12)
[2024-03-03 20:30] VITALS: BP 125/69; TEMP 99.1; O2SAT 97
[2024-03-03] MEDS: MORPHINE SULFATE INJ 2 MG/ML DISP.SYRIN IV PRN (20:56)
[2024-03-03] MEDS: PIPERACILLIN /TAZOBACTAM 4.5 G in IV D5W 100 ML IV SCH (21:11)
[2024-03-03] MEDS: INSULIN REGULAR, HUMAN 100 UNIT/ML 3 ML VIAL SQ PRN (23:42)
[2024-03-04] MEDS: HYDROCODONE/APAP 10/325MG TABLET PO PRN (03:45)
[2024-03-04 06:58] LABS: BASOPHILS # (AUTO) 0.1 K/uL (0.0-0.2); BASOPHILS % (AUTO) 0.7 % (0.0-2.0); EOSINOPHILS # (AUTO) 0.1 K/uL (0.0-0.7); EOSINOPHILS % (AUTO) 1.1 % (0.0-6.0); HEMATOCRIT 39 % (39-51); HEMOGLOBIN 11.9 g/dL (13.5-17.5); LYMPHOCYTES # (AUTO) 0.3 K/uL (0.8-4.8); MEAN CORPUSCULAR HEMOGLOBIN 25 PG (26.0-33.0); MEAN CORPUSCULAR HGB CONC 31 g/dl (31.0-36.0); MEAN CORPUSCULAR VOLUME 80 fL (80-96); MONOCYTES # (AUTO) 1.6 K/uL (0.1-1.30); MONOCYTES % (AUTO) 21.3 % (2.0-12.0); NEUTROPHILS # (AUTO) 5.5 K/uL (1.8-8.9); NEUTROPHILS % (AUTO) 72.9 % (43.0-81.0); PLATELET COUNT (AUTO) 314 K/uL (150-450); RED BLOOD CELL COUNT(AUTO) 4.85 MIL/uL (4.5-6.0); RED CELL DISTRIBUTION WIDTH 18.9 % (11.5-15.0); WHITE BLOOD COUNT (AUTO) 7.6 K/uL (4.3-11.0)
[2024-03-04 07:14] LABS: CALCIUM, SERUM 8.5 mg/dL (8.5-10.1); CREATININE 1.1 mg/dL (0.6-1.3); PHOSPHORUS 4.6 mg/dL (2.5-4.9); POTASSIUM 4.4 mmol/L (3.5-5.1)
[2024-03-04] MEDS: PANTOPRAZOLE 40 MG TABLET.DR PO SCH (07:56)
[2024-03-04 08:00] VITALS: BP 119/73; TEMP 97.7; O2SAT 95
[2024-03-04 09:45] LABS: ANISOCYTOSIS 1+; BASOPHILS % (MANUAL) 0 % (0.0-2.0); EOSINOPHILS % (MANUAL) 1 % (0-4); LYMPHOCYTES % (MANUAL) 8 % (16-48); MONOCYTES % (MANUAL) 18 % (0-11.0); NEUTROPHILS % (MANUAL) 73 (42-76); PLATELET ESTIMATE ADEQUATE
[2024-03-04] MEDS: CLOTRIMAZOLE 1% 15 GM TUBE TP SCH (10:09)
[2024-03-04] MEDS: PIPERACILLIN /TAZOBACTAM 3.375 G in IV D5W 100 ML IV SCH (12:20)
[2024-03-04 16:00] VITALS: BP 142/110; TEMP 98.1; O2SAT 95
[2024-03-04] MEDS: FUROSEMIDE 40 MG/4 ML VIAL IV SCH (17:29)
[2024-03-04 20:00] VITALS: BP 121/95; TEMP 97.6; O2SAT 90
[2024-03-05] VITALS (7 sets, daily range): BP systolic 119–133; BP diastolic 81–97; TEMP 98.2–98.7; O2SAT 92–95
[2024-03-05 03:28] LABS: BASOPHILS # (AUTO) 0.1 K/uL (0.0-0.2); EOSINOPHILS # (AUTO) 0.2 K/uL (0.0-0.7); EOSINOPHILS % (AUTO) 3.6 % (0.0-6.0); HEMATOCRIT 42 % (39-51); HEMOGLOBIN 12.9 g/dL (13.5-17.5); LYMPHOCYTES # (AUTO) 0.5 K/uL (0.8-4.8); LYMPHOCYTES % (AUTO) 7.2 % (20.0-44.0); MEAN CORPUSCULAR HEMOGLOBIN 25 PG (26.0-33.0); MEAN CORPUSCULAR HGB CONC 31 g/dl (31.0-36.0); MEAN CORPUSCULAR VOLUME 81 fL (80-96); MONOCYTES # (AUTO) 1.1 K/uL (0.1-1.30); MONOCYTES % (AUTO) 17.1 % (2.0-12.0); NEUTROPHILS # (AUTO) 4.5 K/uL (1.8-8.9); NEUTROPHILS % (AUTO) 71.1 % (43.0-81.0); PLATELET COUNT (AUTO) 305 K/uL (150-450); RED BLOOD CELL COUNT(AUTO) 5.21 MIL/uL (4.5-6.0); RED CELL DISTRIBUTION WIDTH 19.7 % (11.5-15.0); WHITE BLOOD COUNT (AUTO) 6.3 K/uL (4.3-11.0)
[2024-03-05 04:07] LABS: CALCIUM, SERUM 8.6 mg/dL (8.5-10.1); CREATININE 1.2 mg/dL (0.6-1.3); POTASSIUM 4.2 mmol/L (3.5-5.1)
[2024-03-05 04:14] LABS: ALBUMIN 2.5 g/dL (3.4-5.0); BILIRUBIN,TOTAL 1.7 mg/dL (0.2-1.0); MAGNESIUM 1.8 mg/dL (1.8-2.4); PHOSPHORUS 3.8 mg/dL (2.5-4.9); TOTAL PROTEIN, SERUM 8.2 g/dL (6.4-8.2)
[2024-03-05] MEDS: DAKINS HALF STRENGTH (0.25%) 480 ML BOTTLE TOP SCH (08:07)
[2024-03-05] MEDS: PROSOURCE / PROSTAT (PYXIS) 30 ML UDC PO SCH (12:35)
[2024-03-05] MEDS: ACETAMINOPHEN 325 MG TABLET PO PRN (18:51)
[2024-03-06 08:00] VITALS: BP 150/80; TEMP 97.9; O2SAT 91
[2024-03-06 14:41] LABS: BASOPHILS # (AUTO) 0.1 K/uL (0.0-0.2); BASOPHILS % (AUTO) 0.9 % (0.0-2.0); EOSINOPHILS # (AUTO) 0.2 K/uL (0.0-0.7); EOSINOPHILS % (AUTO) 3.7 % (0.0-6.0); HEMATOCRIT 41 % (39-51); HEMOGLOBIN 12.8 g/dL (13.5-17.5); LYMPHOCYTES # (AUTO) 0.3 K/uL (0.8-4.8); LYMPHOCYTES % (AUTO) 5.7 % (20.0-44.0); MEAN CORPUSCULAR HEMOGLOBIN 25 PG (26.0-33.0); MEAN CORPUSCULAR HGB CONC 31 g/dl (31.0-36.0); MEAN CORPUSCULAR VOLUME 79 fL (80-96); MONOCYTES # (AUTO) 0.7 K/uL (0.1-1.30); MONOCYTES % (AUTO) 12.8 % (2.0-12.0); NEUTROPHILS # (AUTO) 4.5 K/uL (1.8-8.9); NEUTROPHILS % (AUTO) 76.9 % (43.0-81.0); PLATELET COUNT (AUTO) 340 K/uL (150-450); RED BLOOD CELL COUNT(AUTO) 5.21 MIL/uL (4.5-6.0); RED CELL DISTRIBUTION WIDTH 19.7 % (11.5-15.0); WHITE BLOOD COUNT (AUTO) 5.8 K/uL (4.3-11.0)
[2024-03-06 15:01] LABS: CALCIUM, SERUM 8.5 mg/dL (8.5-10.1); CREATININE 1.3 mg/dL (0.6-1.3)
[2024-03-06 16:00] VITALS: BP 125/101; TEMP 98.1; O2SAT 93
[2024-03-06 20:00] VITALS: BP 132/88; TEMP 97.7; O2SAT 92
[2024-03-07 08:00] VITALS: BP 144/98; TEMP 97.9; O2SAT 93
[2024-03-07 12:23] LABS: CALCIUM, SERUM 8.7 mg/dL (8.5-10.1); CREATININE 1.4 mg/dL (0.6-1.3); POTASSIUM 3.9 mmol/L (3.5-5.1)
[2024-03-07 16:00] VITALS: BP 135/93; TEMP 98.2; O2SAT 94
[2024-03-07 20:30] VITALS: O2SAT 95
[2024-03-07 20:31] VITALS: BP 137/84; TEMP 97.5; O2SAT 91
[2024-03-07 20:47] VITALS: O2SAT 95
[2024-03-08 07:24] LABS: CALCIUM, SERUM 8.8 mg/dL (8.5-10.1); CREATININE 1.4 mg/dL (0.6-1.3)
[2024-03-08 08:00] VITALS: BP 150/110; TEMP 98.2; O2SAT 98
[2024-03-08 08:04] LABS: POTASSIUM 3.8 mmol/L (3.5-5.1)
[2024-03-08] MEDS ORDERED: FLUTICASONE PROPIONATE 16 GM BOTTLE NS PRN (13:00)
[2024-03-08] MEDS: GABAPENTIN 400 MG CAPSULE PO SCH (13:47)
[2024-03-08] MEDS: APIXABAN 5 MG TABLET PO SCH (17:22)
[2024-03-08] MEDS: METOPROLOL TARTRATE 50 MG TABLET PO SCH (17:22)
[2024-03-09 07:30] VITALS: BP 128/102; TEMP 98.1; O2SAT 90
[2024-03-09] MEDS ORDERED: DOXY-326 PO (12:10)
[2024-03-09 16:00] VITALS: BP 110/75; TEMP 97.9; O2SAT 90
[2024-03-09 17:21] VITALS: BP 110/75
== END 2024-03-09 18:22 | disposition home health service (06) | DRG 383 ==
LOC: ER 12:50 → TELE 15:37 → MED 23:06
PROVIDERS: ATTEND Nurse Practitioner Acute Care
DX: L03.115 Cellulitis of right lower limb (principal); I50.33 Acute on chronic diastolic (congestive) heart failure; E44.0 Moderate protein-calorie malnutrition; D68.69 Other thrombophilia; E88.09 Other disorders of plasma-protein metabolism, not elsewhere classified; I87.313 Chronic venous hypertension (idiopathic) with ulcer of bilateral lower extremity; L97.419 Non-pressure chronic ulcer of right heel and midfoot with unspecified severity; E11.621 Type 2 diabetes mellitus with foot ulcer; I48.91 Unspecified atrial fibrillation; I11.0 Hypertensive heart disease with heart failure; L97.819 Non-pressure chronic ulcer of other part of right lower leg with unspecified severity; L97.829 Non-pressure chronic ulcer of other part of left lower leg with unspecified severity; Z68.45 Body mass index [BMI] 70 or greater, adult; G47.33 Obstructive sleep apnea (adult) (pediatric); I16.0 Hypertensive urgency; E66.01 Morbid (severe) obesity due to excess calories; L03.116 Cellulitis of left lower limb; I87.8 Other specified disorders of veins; E78.5 Hyperlipidemia, unspecified; Z79.4 Long term (current) use of insulin; Z79.01 Long term (current) use of anticoagulants; N50.89 Other specified disorders of the male genital organs; Z88.1 Allergy status to other antibiotic agents; Z74.09 Other reduced mobility; E11.65 Type 2 diabetes mellitus with hyperglycemia
CPT/HCPCS: 36415; 71045-TC; 80048-TC; 80053-TC; 80076-TC; 80202-TC; 82962-TC; 83605-TC; 83735-TC; 83880; 84100-TC; 84484-TC; 85025-TC; 85730-TC; 87040-TC; 94760-TC; 94799-TC; 97116-TC; 97530-TC; A4223; A6253; A6403; G0378; J1650; J1815; J1940; J2270; J2543; J7040; J7060

== ENCOUNTER 2024-04-11 15:53 | Inpatient (IN) | payer OTHER ==
[~2024-04-11] VITALS: Ht 188 cm; Wt 188.2 kg
[~2024-04-11 15:53] MED LIST changes: -CEPH250S PO; +DOXY-326 PO; +PANT40TA2 PO; -PANT40TA49 PO
[2024-04-11 16:48] LABS: BASOPHILS % (AUTO) 0.5 % (0.0-2.0); EOSINOPHILS # (AUTO) 0.1 K/uL (0.0-0.7); EOSINOPHILS % (AUTO) 1.6 % (0.0-6.0); HEMATOCRIT 41 % (39-51); HEMOGLOBIN 13.1 g/dL (13.5-17.5); LYMPHOCYTES # (AUTO) 0.3 K/uL (0.8-4.8); MEAN CORPUSCULAR HEMOGLOBIN 25 PG (26.0-33.0); MEAN CORPUSCULAR HGB CONC 32 g/dl (31.0-36.0); MEAN CORPUSCULAR VOLUME 80 fL (80-96); MONOCYTES # (AUTO) 1.2 K/uL (0.1-1.30); MONOCYTES % (AUTO) 13.7 % (2.0-12.0); NEUTROPHILS # (AUTO) 7.3 K/uL (1.8-8.9); NEUTROPHILS % (AUTO) 81.2 % (43.0-81.0); PLATELET COUNT (AUTO) 384 K/uL (150-450); RED BLOOD CELL COUNT(AUTO) 5.18 MIL/uL (4.5-6.0); RED CELL DISTRIBUTION WIDTH 19.9 % (11.5-15.0); WHITE BLOOD COUNT (AUTO) 8.9 K/uL (4.3-11.0)
[2024-04-11] MEDS: MEROPENEM 1 G in IV NS 0.9% 100 ML IV ONE (16:55)
[2024-04-11] MEDS: IV NS 0.9% 500 ML BAG IV ONE (16:55)
[2024-04-11 16:56] LABS: CALCIUM, SERUM 9.4 mg/dL (8.5-10.1); CREATININE 1.7 mg/dL (0.6-1.3)
[2024-04-11 17:02] LABS: ALBUMIN 2.9 g/dL (3.4-5.0); BILIRUBIN,DIRECT 0.5 mg/dL (0.0-0.2); BILIRUBIN,TOTAL 1.3 mg/dL (0.2-1.0); TOTAL PROTEIN, SERUM 8.9 g/dL (6.4-8.2)
[2024-04-11 17:04] LABS: INR 1.2 (0.91-1.10); PARTIAL THROMBOPLASTIN TIME 34.8 SEC (24.3-34.3); PROTHROMBIN TIME 12.6 SECS (9.2-11.1)
[2024-04-11 17:06] LABS: LACTIC ACID 1.8 mmol/L (0.4-2.0)
[2024-04-11] MEDS ORDERED: GABAPENTIN 100 MG CAPSULE ONE (17:07)
[2024-04-11] MEDS: GABAPENTIN 100 MG CAPSULE PO ONE (17:10)
[2024-04-11] MEDS: PIPERACILLIN /TAZOBACTAM 3.375 G in IV D5W 50 ML IV ONE (17:30)
[2024-04-11] MEDS ORDERED: DILTIAZEM HCL 25 MG IV ONE ×2 (18:14→19:27)
[2024-04-11] MEDS: DILTIAZEM HCL 50 MG IV IV ONE ×2 (18:17→19:32)
[2024-04-11] MEDS ORDERED: ACETAMINOPHEN ES 500 MG TABLET ONE (19:27)
[2024-04-11] MEDS: ACETAMINOPHEN ES 500 MG TABLET PO ONE (19:30)
[2024-04-11 20:00] VITALS: BP 131/78; TEMP 97.5; O2SAT 96
[2024-04-11 20:20] VITALS: BP 131/78; TEMP 97.5; O2SAT 96
[2024-04-11] MEDS ORDERED: ONDANSETRON HCL/PF 4 MG/2 ML VIAL IVP PRN (21:30)
[2024-04-11] MEDS ORDERED: MAG HYDROX/AL HYDROX/SIMETH 30 ML UDC PO PRN (21:30)
[2024-04-11] MEDS ORDERED: MAGNESIUM HYDROXIDE 30 ML UDC PO PRN (21:30)
[2024-04-11] MEDS ORDERED: Z GUARD REMEDY 4 OZ OINT TP PRN (21:30)
[2024-04-11] MEDS ORDERED: ZOLPIDEM TARTRATE 5 MG TABLET PO PRN (21:30)
[2024-04-11] MEDS: BLOOD SUGAR DIAGNOSTIC 1 EACH STRIP MC SCH (22:30)
[2024-04-11] MEDS: BUMETANIDE (1 MG) 1 MG TABLET PO SCH (23:42)
[2024-04-11] MEDS: ENOXAPARIN SODIUM 40 MG/0.4 ML DISP.SYRIN SQ SCH (23:43)
[2024-04-11] MEDS: ACETAMINOPHEN 325 MG TABLET PO PRN (23:56)
[2024-04-12] MEDS: METOPROLOL TARTRATE 50 MG TABLET PO SCH (00:11)
[2024-04-12 06:08] LABS: BASOPHILS # (AUTO) 0.1 K/uL (0.0-0.2); BASOPHILS % (AUTO) 0.5 % (0.0-2.0); EOSINOPHILS % (AUTO) 0.3 % (0.0-6.0); HEMATOCRIT 42 % (39-51); HEMOGLOBIN 12.6 g/dL (13.5-17.5); LYMPHOCYTES # (AUTO) 0.2 K/uL (0.8-4.8); MEAN CORPUSCULAR HEMOGLOBIN 25 PG (26.0-33.0); MEAN CORPUSCULAR HGB CONC 30 g/dl (31.0-36.0); MEAN CORPUSCULAR VOLUME 82 fL (80-96); MONOCYTES # (AUTO) 1.9 K/uL (0.1-1.30); MONOCYTES % (AUTO) 15.8 % (2.0-12.0); NEUTROPHILS # (AUTO) 9.8 K/uL (1.8-8.9); NEUTROPHILS % (AUTO) 81.4 % (43.0-81.0); PLATELET COUNT (AUTO) 404 K/uL (150-450); RED BLOOD CELL COUNT(AUTO) 5.13 MIL/uL (4.5-6.0); WHITE BLOOD COUNT (AUTO) 12.1 K/uL (4.3-11.0)
[2024-04-12 06:41] LABS: ALBUMIN 2.5 g/dL (3.4-5.0); BILIRUBIN,TOTAL 1.5 mg/dL (0.2-1.0); CALCIUM, SERUM 8.7 mg/dL (8.5-10.1); CREATININE 1.5 mg/dL (0.6-1.3); PHOSPHORUS 4.7 mg/dL (2.5-4.9); POTASSIUM 4.1 mmol/L (3.5-5.1); TOTAL PROTEIN, SERUM 8.4 g/dL (6.4-8.2)
[2024-04-12] MEDS: MEROPENEM 1 G in IV NS 0.9% 100 ML IV SCH (07:36)
[2024-04-12 08:00] VITALS: BP 122/85; TEMP 97.7; O2SAT 94
[2024-04-12] MEDS: PANTOPRAZOLE 40 MG TABLET.DR PO SCH (09:05)
[2024-04-12] MEDS: GABAPENTIN 400 MG CAPSULE PO SCH (09:05)
[2024-04-12] MEDS: APIXABAN 5 MG TABLET PO SCH (10:01)
[2024-04-12 15:15] VITALS: O2SAT 94
[2024-04-12] MEDS: IPRATROPIUM NEB FS 0.5 MG/2.5 ML AMPUL.NEB NEB SCH (15:30)
[2024-04-12] MEDS: ALBUTEROL HALF STRENGTH 1.25 MG/3 ML VIAL.NEB NEB SCH (15:30)
[2024-04-12 16:00] VITALS: BP 111/82; TEMP 98.6; O2SAT 100
[2024-04-12] MEDS: CLOTRIMAZOLE 1% 15 GM TUBE TP SCH (17:00)
[2024-04-12] MEDS: INSULIN GLARGINE, 100 UNIT/ML CARTRIDGE SQ SCH (17:26)
[2024-04-12 20:00] VITALS: BP 118/76; TEMP 97.5; O2SAT 98
[2024-04-12 20:05] VITALS: O2SAT 96
[2024-04-13] VITALS (8 sets, daily range): BP systolic 115–126; BP diastolic 74–85; TEMP 97.3–98.2; O2SAT 95–99
[2024-04-13 14:34] LABS: BASOPHILS % (AUTO) 0.7 % (0.0-2.0); EOSINOPHILS # (AUTO) 0.1 K/uL (0.0-0.7); EOSINOPHILS % (AUTO) 1.3 % (0.0-6.0); HEMATOCRIT 40 % (39-51); HEMOGLOBIN 12.3 g/dL (13.5-17.5); LYMPHOCYTES # (AUTO) 0.4 K/uL (0.8-4.8); LYMPHOCYTES % (AUTO) 5.2 % (20.0-44.0); MEAN CORPUSCULAR HEMOGLOBIN 25 PG (26.0-33.0); MEAN CORPUSCULAR HGB CONC 31 g/dl (31.0-36.0); MEAN CORPUSCULAR VOLUME 82 fL (80-96); MONOCYTES # (AUTO) 1.1 K/uL (0.1-1.30); MONOCYTES % (AUTO) 16.4 % (2.0-12.0); NEUTROPHILS # (AUTO) 5.2 K/uL (1.8-8.9); NEUTROPHILS % (AUTO) 76.4 % (43.0-81.0); PLATELET COUNT (AUTO) 386 K/uL (150-450); RED BLOOD CELL COUNT(AUTO) 4.87 MIL/uL (4.5-6.0); RED CELL DISTRIBUTION WIDTH 19.6 % (11.5-15.0); WHITE BLOOD COUNT (AUTO) 6.8 K/uL (4.3-11.0)
[2024-04-13 14:45] LABS: CALCIUM, SERUM 8.9 mg/dL (8.5-10.1); CREATININE 1.4 mg/dL (0.6-1.3); POTASSIUM 4.6 mmol/L (3.5-5.1)
[2024-04-13 19:10] LABS: ANISOCYTOSIS 1+; EOSINOPHILS % (MANUAL) 1 % (0-4); LYMPHOCYTES % (MANUAL) 4 % (16-48); MONOCYTES % (MANUAL) 18 % (0-11.0); NEUTROPHILS % (MANUAL) 77 (42-76); OVALOCYTES 1+; PLATELET ESTIMATE ADEQUATE; TARGET CELLS 1+
[2024-04-14] VITALS (12 sets, daily range): BP systolic 125–134; BP diastolic 78–104; TEMP 98.1–98.6; O2SAT 0–99
[2024-04-14 06:49] LABS: BASOPHILS % (AUTO) 0.6 % (0.0-2.0); EOSINOPHILS # (AUTO) 0.1 K/uL (0.0-0.7); EOSINOPHILS % (AUTO) 1.5 % (0.0-6.0); HEMATOCRIT 40 % (39-51); HEMOGLOBIN 12.5 g/dL (13.5-17.5); LYMPHOCYTES # (AUTO) 0.4 K/uL (0.8-4.8); LYMPHOCYTES % (AUTO) 5.4 % (20.0-44.0); MEAN CORPUSCULAR HEMOGLOBIN 25 PG (26.0-33.0); MEAN CORPUSCULAR HGB CONC 31 g/dl (31.0-36.0); MEAN CORPUSCULAR VOLUME 81 fL (80-96); MONOCYTES # (AUTO) 1.1 K/uL (0.1-1.30); MONOCYTES % (AUTO) 16.5 % (2.0-12.0); NEUTROPHILS # (AUTO) 5.3 K/uL (1.8-8.9); PLATELET COUNT (AUTO) 416 K/uL (150-450); RED BLOOD CELL COUNT(AUTO) 4.93 MIL/uL (4.5-6.0); RED CELL DISTRIBUTION WIDTH 19.2 % (11.5-15.0); WHITE BLOOD COUNT (AUTO) 6.9 K/uL (4.3-11.0)
[2024-04-14 07:25] LABS: ALBUMIN 2.3 g/dL (3.4-5.0); BILIRUBIN,TOTAL 0.9 mg/dL (0.2-1.0); CALCIUM, SERUM 8.7 mg/dL (8.5-10.1); CREATININE 1.4 mg/dL (0.6-1.3); PHOSPHORUS 4.6 mg/dL (2.5-4.9); TOTAL PROTEIN, SERUM 8.2 g/dL (6.4-8.2)
[2024-04-14 11:47] LABS: ANISOCYTOSIS 1+; BASOPHILS % (MANUAL) 0 % (0.0-2.0); EOSINOPHILS % (MANUAL) 0 % (0-4); LYMPHOCYTES % (MANUAL) 9 % (16-48); MONOCYTES % (MANUAL) 17 % (0-11.0); NEUTROPHILS % (MANUAL) 74 (42-76); PLATELET ESTIMATE ADEQUATE
[2024-04-14] MEDS: FLUTICASONE PROPIONATE 16 GM BOTTLE NS PRN (20:54)
[2024-04-15] VITALS (13 sets, daily range): BP systolic 115–139; BP diastolic 74–79; TEMP 98.1–98.4; O2SAT 92–97
[2024-04-15] MEDS ORDERED: ERTA1VIA4 IV (11:13)
[2024-04-15] MEDS ORDERED: IPRA0.2S9 NEB (11:13)
[2024-04-15] MEDS ORDERED: ALBU1.25 NEB (11:13)
[2024-04-15 13:09] LABS: *SPE A/G RATIO 0.5 (0.7-1.7); *SPE ALBUMIN 2.6 g/dL (2.9-4.4); *SPE ALPHA-1-GLOBULIN 0.4 g/dL (0.0-0.4); *SPE ALPHA-2-GLOBULIN 0.9 g/dL (0.4-1.0); *SPE BETA GLOBULIN 1.3 g/dL (0.7-1.3); *SPE M-SPIKE Not Observed g/dL (Not Observed); *SPE PROTEIN TOTAL 7.6 g/dL (6.0-8.5); *SPEGAMMA GLOBULIN 2.3 g/dL (0.4-1.8)
[2024-04-15 21:06] LABS: PTH, INTACT 48 pg/mL (15-65)
[2024-04-16] VITALS (13 sets, daily range): BP systolic 126–144; BP diastolic 75–98; TEMP 97.5–98.4; O2SAT 91–98
[2024-04-17] VITALS (11 sets, daily range): BP systolic 110–139; BP diastolic 78–98; TEMP 97.9–98.9; O2SAT 92–99
[2024-04-18] VITALS (11 sets, daily range): BP systolic 123–134; BP diastolic 87–100; TEMP 98–98.2; O2SAT 93–100
[2024-04-19] VITALS (10 sets, daily range): BP systolic 107–118; BP diastolic 68–103; TEMP 98.1–98.2; O2SAT 90–100
[2024-04-19 06:52] LABS: BASOPHILS % (AUTO) 0.7 % (0.0-2.0); EOSINOPHILS # (AUTO) 0.2 K/uL (0.0-0.7); EOSINOPHILS % (AUTO) 4.1 % (0.0-6.0); HEMATOCRIT 43 % (39-51); HEMOGLOBIN 13.4 g/dL (13.5-17.5); LYMPHOCYTES # (AUTO) 0.3 K/uL (0.8-4.8); MEAN CORPUSCULAR HEMOGLOBIN 25 PG (26.0-33.0); MEAN CORPUSCULAR HGB CONC 31 g/dl (31.0-36.0); MEAN CORPUSCULAR VOLUME 80 fL (80-96); MONOCYTES # (AUTO) 0.9 K/uL (0.1-1.30); MONOCYTES % (AUTO) 14.9 % (2.0-12.0); NEUTROPHILS # (AUTO) 4.4 K/uL (1.8-8.9); NEUTROPHILS % (AUTO) 75.3 % (43.0-81.0); PLATELET COUNT (AUTO) 330 K/uL (150-450); RED BLOOD CELL COUNT(AUTO) 5.36 MIL/uL (4.5-6.0); RED CELL DISTRIBUTION WIDTH 19.1 % (11.5-15.0); WHITE BLOOD COUNT (AUTO) 5.9 K/uL (4.3-11.0)
[2024-04-19 07:15] LABS: CALCIUM, SERUM 8.8 mg/dL (8.5-10.1); CREATININE 0.9 mg/dL (0.6-1.3); MAGNESIUM 1.8 mg/dL (1.8-2.4); PHOSPHORUS 3.2 mg/dL (2.5-4.9)
[2024-04-20] VITALS (8 sets, daily range): BP systolic 137–142; BP diastolic 100–106; TEMP 97.2–98.8; O2SAT 95–99
[2024-04-20] MEDS: DULOXETINE HCL 30 MG CAPSULE.DR PO SCH (12:41)
[2024-04-20] MEDS: MORPHINE SULFATE INJ 2 MG/ML DISP.SYRIN IV ONE (21:15)
[2024-04-21] VITALS (9 sets, daily range): BP systolic 126–152; BP diastolic 86–111; TEMP 97.3–97.9; O2SAT 90–97
[2024-04-22] VITALS (16 sets, daily range): BP systolic 119–145; BP diastolic 86–119; TEMP 97.5–98.5; O2SAT 90–100
[2024-04-22] MEDS: HYDROCODONE/APAP 5/325MG TABLET PO PRN (06:16)
[2024-04-22] MEDS ORDERED: METHOCARBAMOL (500MG) 500 MG TABLET PO PRN (10:30)
[2024-04-23] VITALS (11 sets, daily range): BP systolic 118–135; BP diastolic 80–107; TEMP 97.7–98.6; O2SAT 88–96
[2024-04-24] VITALS (11 sets, daily range): BP systolic 89–120; BP diastolic 50–95; TEMP 97.3–97.9; O2SAT 92–96
[2024-04-24] MEDS: GUAIFENESIN LA 600 MG TABLET.SA PO PRN (04:34)
[2024-04-24 14:04] LABS: CALCIUM, SERUM 9.1 mg/dL (8.5-10.1); CREATININE 0.9 mg/dL (0.6-1.3); POTASSIUM 4.4 mmol/L (3.5-5.1)
[2024-04-25 01:45] VITALS: O2SAT 94
[2024-04-25 02:00] VITALS: O2SAT 96; O2SAT 97
[2024-04-25 08:41] VITALS: BP 150/100; TEMP 97.5; O2SAT 96
[2024-04-25 20:00] VITALS: BP 126/91; TEMP 97.9; O2SAT 96
[2024-04-26 08:00] VITALS: BP 141/105; TEMP 97.7; O2SAT 95
[2024-04-26 16:00] VITALS: BP 145/100; TEMP 98; O2SAT 94
[2024-04-26 18:28] VITALS: BP 145/100
== END 2024-04-26 19:05 | DRG 383 ==
LOC: ER 15:58 → MED 19:46
PROVIDERS: ADMIT Nurse Practitioner Family; ATTEND Internal Medicine
DX: L03.115 Cellulitis of right lower limb (principal); N17.0 Acute kidney failure with tubular necrosis; E44.0 Moderate protein-calorie malnutrition; E66.2 Morbid (severe) obesity with alveolar hypoventilation; I48.0 Paroxysmal atrial fibrillation; E88.09 Other disorders of plasma-protein metabolism, not elsewhere classified; I50.30 Unspecified diastolic (congestive) heart failure; I13.0 Hypertensive heart and chronic kidney disease with heart failure and stage 1 through stage 4 chronic kidney disease, or unspecified chronic kidney disease; I87.313 Chronic venous hypertension (idiopathic) with ulcer of bilateral lower extremity; Z68.43 Body mass index [BMI] 50.0-59.9, adult; L03.116 Cellulitis of left lower limb; E03.9 Hypothyroidism, unspecified; E78.5 Hyperlipidemia, unspecified; G89.29 Other chronic pain; N18.9 Chronic kidney disease, unspecified; Z79.4 Long term (current) use of insulin; E11.42 Type 2 diabetes mellitus with diabetic polyneuropathy; J44.9 Chronic obstructive pulmonary disease, unspecified; L97.829 Non-pressure chronic ulcer of other part of left lower leg with unspecified severity; L97.819 Non-pressure chronic ulcer of other part of right lower leg with unspecified severity; L97.529 Non-pressure chronic ulcer of other part of left foot with unspecified severity; L97.519 Non-pressure chronic ulcer of other part of right foot with unspecified severity; Z79.01 Long term (current) use of anticoagulants; E11.22 Type 2 diabetes mellitus with diabetic chronic kidney disease; R09.02 Hypoxemia; Z87.891 Personal history of nicotine dependence
CPT/HCPCS: 36415; 71045-TC; 76770-TC; 80048-TC; 80053-TC; 80061-TC; 80076-TC; 82550-TC; 82962-TC; 83605-TC; 83735-TC; 83970; 84100-TC; 84155; 84165; 85025-TC; 85730-TC; 87040-TC; 93970-TC; 94760-TC; 94761-TC; 94762-TC; 94799-TC; 97110-TC; 97530-TC; 97535-TC; A4223; A6253; A6403; G0378; J1650; J1815; J2185; J2270; J2543; J3490; J7030; J7040; J7050; J7060

== ENCOUNTER 2024-07-29 11:45 | Inpatient (IN) | payer OTHER ==
[~2024-07-29] VITALS: Ht 188 cm; Wt 192.8 kg
[~2024-07-29 11:45] MED LIST changes: -DOXY-326 PO
[2024-07-29] MEDS: GABAPENTIN 100 MG CAPSULE PO ONE (12:08)
[2024-07-29] MEDS ORDERED: GABAPENTIN 100 MG CAPSULE ONE (12:14)
[2024-07-29 12:19] LABS: BASOPHILS # (AUTO) 0.1 K/uL (0.0-0.2); EOSINOPHILS # (AUTO) 0.3 K/uL (0.0-0.7); EOSINOPHILS % (AUTO) 2.8 % (0.0-6.0); HEMATOCRIT 42 % (39-51); HEMOGLOBIN 13.2 g/dL (13.5-17.5); LYMPHOCYTES # (AUTO) 0.4 K/uL (0.8-4.8); LYMPHOCYTES % (AUTO) 4.4 % (20.0-44.0); MEAN CORPUSCULAR HEMOGLOBIN 27 PG (26.0-33.0); MEAN CORPUSCULAR HGB CONC 32 g/dl (31.0-36.0); MEAN CORPUSCULAR VOLUME 85 fL (80-96); MONOCYTES # (AUTO) 0.9 K/uL (0.1-1.30); MONOCYTES % (AUTO) 9.6 % (2.0-12.0); NEUTROPHILS # (AUTO) 7.3 K/uL (1.8-8.9); NEUTROPHILS % (AUTO) 82.2 % (43.0-81.0); PLATELET COUNT (AUTO) 316 K/uL (150-450); RED BLOOD CELL COUNT(AUTO) 4.94 MIL/uL (4.5-6.0); RED CELL DISTRIBUTION WIDTH 18.7 % (11.5-15.0); WHITE BLOOD COUNT (AUTO) 8.9 K/uL (4.3-11.0)
[2024-07-29] MEDS: IV NS 0.9% 1,000 ML BAG IV ONE (12:20)
[2024-07-29 12:53] LABS: LACTIC ACID 2.1 mmol/L (0.4-2.0)
[2024-07-29 12:56] LABS: ALANINE AMINOTRANSFERASE 12 U/L (12-78); ALBUMIN 2.8 g/dL (3.4-5.0); ALKALINE PHOSPHATASE 212 U/L (46-116); ASPARTATE AMINOTRANSFERASE 10 U/L (15-37); BILIRUBIN,DIRECT 0.5 mg/dL (0.0-0.2); BILIRUBIN,TOTAL 1.6 mg/dL (0.2-1.0); CALCIUM, SERUM 9.3 mg/dL (8.5-10.1); CARBON DIOXIDE 27 mmol/L (21-32); CHLORIDE 100 mmol/L (98-107); CREATININE 1.1 mg/dL (0.6-1.3); GLUCOSE 243 mg/dL (74-106); NT-PRO BNP 1840 pg/mL (0-125); POTASSIUM 4.6 mmol/L (3.5-5.1); SODIUM SERUM 133 mmol/L (136-145); TOTAL PROTEIN, SERUM 8.1 g/dL (6.4-8.2); UREA NITROGEN, BLOOD 13 mg/dL (7-18)
[2024-07-29] MEDS: CEFEPIME 1 GM in IV D5W 50 ML IV ONE (14:14)
[2024-07-29] MEDS ORDERED: SULFAMETH/TRIMETH 800/160 MG 1 UDTAB TABLET ONE (14:17)
[2024-07-29] MEDS: SULFAMETH/TRIMETH 800/160 MG 1 UDTAB TABLET PO ONE (15:05)
[2024-07-29] MEDS: IV NS 0.9% 250 ML BAG IV ONE (15:12)
[2024-07-29] MEDS ORDERED: DIGOXIN INJ 0.5 MG/2 ML AMPUL ONE (16:13)
[2024-07-29] MEDS: DIGOXIN INJ 0.5 MG/2 ML AMPUL IV ONE (16:22)
[2024-07-29] MEDS ORDERED: FLUTICASONE PROPIONATE 16 GM BOTTLE NS PRN (17:00)
[2024-07-29] MEDS ORDERED: METOPROLOL TARTRATE 50 MG TABLET PO PRN (17:00)
[2024-07-29] MEDS ORDERED: ZOLPIDEM TARTRATE 5 MG TABLET PO PRN (17:00)
[2024-07-29] MEDS ORDERED: ACETAMINOPHEN 325 MG TABLET PO PRN (17:00)
[2024-07-29] MEDS ORDERED: ONDANSETRON HCL/PF 4 MG/2 ML VIAL IVP PRN (17:00)
[2024-07-29] MEDS ORDERED: GUAIFENESIN LA 600 MG TABLET.SA PO PRN (17:00)
[2024-07-29] MEDS ORDERED: MAG HYDROX/AL HYDROX/SIMETH 30 ML UDC PO PRN (17:00)
[2024-07-29] MEDS ORDERED: CLINDAMYCIN IV RTU IN D5W 900 MG/50 ML PIGGYBACK IV SCH (17:00)
[2024-07-29] MEDS ORDERED: MAGNESIUM HYDROXIDE 30 ML UDC PO PRN (17:00)
[2024-07-29] MEDS ORDERED: Z GUARD REMEDY 4 OZ OINT TP PRN (17:00)
[2024-07-29] MEDS: APIXABAN 5 MG TABLET PO SCH (17:56)
[2024-07-29] MEDS: INSULIN GLARGINE, 100 UNIT/ML CARTRIDGE SQ SCH (19:01)
[2024-07-29 20:00] VITALS: BP 110/88; TEMP 98.4; O2SAT 96
[2024-07-29] MEDS: AMIODARONE 150 MG in IV D5W 100 ML IV ONE (20:26)
[2024-07-29] MEDS: CLINDAMYCIN 900 MG in IV D5W 50 ML IV SCH (20:56)
[2024-07-29] MEDS: AMIODARONE 450 MG in IV D5W 241 ML IV PRN (21:01)
[2024-07-29] MEDS: FUROSEMIDE 40 MG/4 ML VIAL IV SCH (21:04)
[2024-07-30] VITALS: BP 117/65; TEMP 98.6; O2SAT 95
[2024-07-30] MEDS: TRAMADOL HCL 50 MG TABLET PO PRN (00:54)
[2024-07-30 04:00] VITALS: BP 115/59; TEMP 98.5; O2SAT 95
[2024-07-30 05:31] LABS: BASOPHILS # (AUTO) 0.1 K/uL (0.0-0.2); BASOPHILS % (AUTO) 0.8 % (0.0-2.0); EOSINOPHILS # (AUTO) 0.2 K/uL (0.0-0.7); HEMATOCRIT 44 % (39-51); HEMOGLOBIN 13.6 g/dL (13.5-17.5); LYMPHOCYTES # (AUTO) 0.4 K/uL (0.8-4.8); LYMPHOCYTES % (AUTO) 5.2 % (20.0-44.0); MEAN CORPUSCULAR HEMOGLOBIN 26 PG (26.0-33.0); MEAN CORPUSCULAR HGB CONC 31 g/dl (31.0-36.0); MEAN CORPUSCULAR VOLUME 84 fL (80-96); MONOCYTES % (AUTO) 12.6 % (2.0-12.0); NEUTROPHILS # (AUTO) 6.4 K/uL (1.8-8.9); NEUTROPHILS % (AUTO) 78.4 % (43.0-81.0); PLATELET COUNT (AUTO) 330 K/uL (150-450); RED BLOOD CELL COUNT(AUTO) 5.15 MIL/uL (4.5-6.0); RED CELL DISTRIBUTION WIDTH 19.2 % (11.5-15.0); WHITE BLOOD COUNT (AUTO) 8.1 K/uL (4.3-11.0)
[2024-07-30 05:49] LABS: CALCIUM, SERUM 8.9 mg/dL (8.5-10.1); MAGNESIUM 1.8 mg/dL (1.8-2.4); PHOSPHORUS 4.5 mg/dL (2.5-4.9); POTASSIUM 4.9 mmol/L (3.5-5.1)
[2024-07-30 08:00] VITALS: BP 109/71; TEMP 97.5; O2SAT 95
[2024-07-30] MEDS: GABAPENTIN 400 MG CAPSULE PO SCH (09:07)
[2024-07-30 12:00] VITALS: BP 117/83; TEMP 97.5; O2SAT 95
[2024-07-30 16:00] VITALS: BP 108/76; TEMP 97.3; O2SAT 93
[2024-07-30] MEDS: METOPROLOL TARTRATE 25 MG TABLET PO SCH (16:56)
[2024-07-30 20:00] VITALS: BP 95/60; TEMP 98.2; O2SAT 92
[2024-07-31] VITALS: BP 107/57; TEMP 98.3; O2SAT 93
[2024-07-31] MEDS: MORPHINE SULFATE INJ 2 MG/ML DISP.SYRIN IM PRN (01:14)
[2024-07-31 06:00] VITALS: BP 112/57; TEMP 98; O2SAT 94
[2024-07-31 06:03] LABS: BASOPHILS % (AUTO) 0.5 % (0.0-2.0); EOSINOPHILS # (AUTO) 0.5 K/uL (0.0-0.7); EOSINOPHILS % (AUTO) 6.7 % (0.0-6.0); HEMATOCRIT 41 % (39-51); LYMPHOCYTES # (AUTO) 0.3 K/uL (0.8-4.8); LYMPHOCYTES % (AUTO) 4.5 % (20.0-44.0); MEAN CORPUSCULAR HEMOGLOBIN 26 PG (26.0-33.0); MEAN CORPUSCULAR HGB CONC 31 g/dl (31.0-36.0); MEAN CORPUSCULAR VOLUME 83 fL (80-96); MONOCYTES # (AUTO) 0.7 K/uL (0.1-1.30); MONOCYTES % (AUTO) 9.6 % (2.0-12.0); NEUTROPHILS # (AUTO) 5.9 K/uL (1.8-8.9); NEUTROPHILS % (AUTO) 78.7 % (43.0-81.0); PLATELET COUNT (AUTO) 297 K/uL (150-450); RED BLOOD CELL COUNT(AUTO) 4.97 MIL/uL (4.5-6.0); RED CELL DISTRIBUTION WIDTH 18.3 % (11.5-15.0); WHITE BLOOD COUNT (AUTO) 7.5 K/uL (4.3-11.0)
[2024-07-31 06:33] LABS: CALCIUM, SERUM 9.2 mg/dL (8.5-10.1); CREATININE 1.1 mg/dL (0.6-1.3); POTASSIUM 4.3 mmol/L (3.5-5.1)
[2024-07-31 08:00] VITALS: BP 110/67; TEMP 98.2; O2SAT 92
[2024-07-31 12:00] VITALS: BP 110/79; TEMP 98.2; O2SAT 93
[2024-07-31 16:00] VITALS: BP 122/72; TEMP 98.2; O2SAT 92
[2024-07-31] MEDS: ENSURE ENLIVE 237 ML LIQUID (VANILLA) PO SCH (17:38)
[2024-07-31] MEDS: DIGOXIN INJ 0.5 MG/2 ML AMPUL IV ONE (19:20)
[2024-07-31 20:00] VITALS: BP 108/64; TEMP 98.2; O2SAT 91
[2024-08-01] VITALS: BP 134/76; TEMP 98.5; O2SAT 91
[2024-08-01 04:00] VITALS: BP 123/75; TEMP 98.6; O2SAT 92
[2024-08-01 06:39] LABS: BASOPHILS % (AUTO) 0.4 % (0.0-2.0); EOSINOPHILS # (AUTO) 0.4 K/uL (0.0-0.7); EOSINOPHILS % (AUTO) 5.6 % (0.0-6.0); HEMATOCRIT 40 % (39-51); HEMOGLOBIN 12.9 g/dL (13.5-17.5); LYMPHOCYTES # (AUTO) 0.4 K/uL (0.8-4.8); LYMPHOCYTES % (AUTO) 5.9 % (20.0-44.0); MEAN CORPUSCULAR HEMOGLOBIN 27 PG (26.0-33.0); MEAN CORPUSCULAR HGB CONC 32 g/dl (31.0-36.0); MEAN CORPUSCULAR VOLUME 83 fL (80-96); MONOCYTES # (AUTO) 0.8 K/uL (0.1-1.30); MONOCYTES % (AUTO) 11.7 % (2.0-12.0); NEUTROPHILS # (AUTO) 5.1 K/uL (1.8-8.9); NEUTROPHILS % (AUTO) 76.4 % (43.0-81.0); PLATELET COUNT (AUTO) 298 K/uL (150-450); RED BLOOD CELL COUNT(AUTO) 4.88 MIL/uL (4.5-6.0); WHITE BLOOD COUNT (AUTO) 6.6 K/uL (4.3-11.0)
[2024-08-01 06:50] LABS: CALCIUM, SERUM 8.9 mg/dL (8.5-10.1); POTASSIUM 4.2 mmol/L (3.5-5.1)
[2024-08-01 08:20] VITALS: BP 108/76; TEMP 98.6; O2SAT 90
[2024-08-01 12:25] VITALS: BP 138/86; TEMP 98.4; O2SAT 94
[2024-08-01] MEDS: DIGOXIN 0.125 MG TABLET PO SCH (13:58)
[2024-08-01 16:46] VITALS: BP 125/65; TEMP 97.7; O2SAT 92
[2024-08-01 20:00] VITALS: BP 125/78; TEMP 98.2; O2SAT 93
[2024-08-02 04:17] VITALS: BP 120/78; TEMP 98.2; O2SAT 93
[2024-08-02 06:57] LABS: BASOPHILS # (AUTO) 0.1 K/uL (0.0-0.2); BASOPHILS % (AUTO) 0.9 % (0.0-2.0); EOSINOPHILS # (AUTO) 0.4 K/uL (0.0-0.7); EOSINOPHILS % (AUTO) 6.3 % (0.0-6.0); HEMATOCRIT 41 % (39-51); LYMPHOCYTES # (AUTO) 0.4 K/uL (0.8-4.8); LYMPHOCYTES % (AUTO) 6.8 % (20.0-44.0); MEAN CORPUSCULAR HEMOGLOBIN 27 PG (26.0-33.0); MEAN CORPUSCULAR HGB CONC 32 g/dl (31.0-36.0); MEAN CORPUSCULAR VOLUME 84 fL (80-96); MONOCYTES # (AUTO) 0.7 K/uL (0.1-1.30); MONOCYTES % (AUTO) 12.3 % (2.0-12.0); NEUTROPHILS # (AUTO) 4.4 K/uL (1.8-8.9); NEUTROPHILS % (AUTO) 73.7 % (43.0-81.0); PLATELET COUNT (AUTO) 287 K/uL (150-450); RED BLOOD CELL COUNT(AUTO) 4.86 MIL/uL (4.5-6.0); RED CELL DISTRIBUTION WIDTH 18.7 % (11.5-15.0); WHITE BLOOD COUNT (AUTO) 5.9 K/uL (4.3-11.0)
[2024-08-02 07:10] LABS: CALCIUM, SERUM 8.7 mg/dL (8.5-10.1); POTASSIUM 4.4 mmol/L (3.5-5.1)
[2024-08-02 08:00] VITALS: BP 134/76; TEMP 97.9; O2SAT 93
[2024-08-02 12:00] VITALS: BP 129/76; TEMP 98.4; O2SAT 90
[2024-08-02 16:00] VITALS: BP 148/102; TEMP 98.1; O2SAT 98
[2024-08-02] MEDS: LOSARTAN POTASSIUM 25 MG TABLET PO SCH (17:45)
[2024-08-02] MEDS: BUMETANIDE (1 MG) 1 MG TABLET PO SCH (17:45)
[2024-08-02 20:00] VITALS: BP 116/86; TEMP 98.1; O2SAT 98
[2024-08-02] MEDS: GUAIFENESIN LA 600 MG TABLET.SA PO SCH (20:47)
[2024-08-03] VITALS (7 sets, daily range): BP systolic 123–144; BP diastolic 77–90; TEMP 97.5–98.8; O2SAT 92–98
[2024-08-03 06:16] LABS: BASOPHILS % (AUTO) 0.8 % (0.0-2.0); EOSINOPHILS # (AUTO) 0.4 K/uL (0.0-0.7); EOSINOPHILS % (AUTO) 6.9 % (0.0-6.0); HEMATOCRIT 43 % (39-51); HEMOGLOBIN 13.8 g/dL (13.5-17.5); LYMPHOCYTES # (AUTO) 0.5 K/uL (0.8-4.8); LYMPHOCYTES % (AUTO) 7.1 % (20.0-44.0); MEAN CORPUSCULAR HEMOGLOBIN 27 PG (26.0-33.0); MEAN CORPUSCULAR HGB CONC 32 g/dl (31.0-36.0); MEAN CORPUSCULAR VOLUME 84 fL (80-96); MONOCYTES # (AUTO) 0.7 K/uL (0.1-1.30); MONOCYTES % (AUTO) 11.2 % (2.0-12.0); NEUTROPHILS # (AUTO) 4.7 K/uL (1.8-8.9); PLATELET COUNT (AUTO) 277 K/uL (150-450); RED BLOOD CELL COUNT(AUTO) 5.09 MIL/uL (4.5-6.0); RED CELL DISTRIBUTION WIDTH 18.8 % (11.5-15.0); WHITE BLOOD COUNT (AUTO) 6.4 K/uL (4.3-11.0)
[2024-08-03 06:54] LABS: CALCIUM, SERUM 9.3 mg/dL (8.5-10.1); POTASSIUM 4.3 mmol/L (3.5-5.1)
[2024-08-03] MEDS: FLUTICASONE PROPIONATE 16 GM BOTTLE NS SCH (08:38)
[2024-08-03] MEDS ORDERED: DIGO125T PO (11:20)
[2024-08-03] MEDS ORDERED: CLIN300C12 PO (11:20)
[2024-08-03] MEDS ORDERED: LOSA25TA27 PO (11:20)
[2024-08-03] MEDS ORDERED: METO50TA16 PO (11:20)
== END 2024-08-03 17:16 | disposition home health service (06) | DRG 602 ==
LOC: ER 11:47 → TELE1 16:55 → TELE-TD 20:19 → TELE1 08-01 11:32
PROVIDERS: ADMIT Internal Medicine; ATTEND Internal Medicine
DX: L03.115 Cellulitis of right lower limb (principal); I50.33 Acute on chronic diastolic (congestive) heart failure; E44.0 Moderate protein-calorie malnutrition; E87.1 Hypo-osmolality and hyponatremia; E66.2 Morbid (severe) obesity with alveolar hypoventilation; Z68.43 Body mass index [BMI] 50.0-59.9, adult; I87.313 Chronic venous hypertension (idiopathic) with ulcer of bilateral lower extremity; L97.828 Non-pressure chronic ulcer of other part of left lower leg with other specified severity; L97.818 Non-pressure chronic ulcer of other part of right lower leg with other specified severity; L03.116 Cellulitis of left lower limb; I11.0 Hypertensive heart disease with heart failure; E78.5 Hyperlipidemia, unspecified; E86.1 Hypovolemia; E88.09 Other disorders of plasma-protein metabolism, not elsewhere classified; I48.0 Paroxysmal atrial fibrillation; Z87.891 Personal history of nicotine dependence; Z79.4 Long term (current) use of insulin; Z91.199 Patient's noncompliance with other medical treatment and regimen due to unspecified reason; E03.9 Hypothyroidism, unspecified; E11.42 Type 2 diabetes mellitus with diabetic polyneuropathy; G89.29 Other chronic pain; J44.9 Chronic obstructive pulmonary disease, unspecified; Z79.01 Long term (current) use of anticoagulants
CPT/HCPCS: 36415; 71045-TC; 80048-TC; 80076-TC; 82962-TC; 83605-TC; 83735-TC; 83880; 84100-TC; 84484-TC; 85025-TC; 87040-TC; 93307-TC; 93970-TC; 97112-TC; 97116-TC; 97530-TC; A4223; A6253; G0378; J0282; J0692; J1160; J1815; J1940; J2270; J3490; J7030; J7050; J7060